=== PATIENT | female | born 1950 | race Caucasian/White ===

== ENCOUNTER → 2021-04-03 | Outpatient (CLI) | payer MEDICARE ==
[~2021-04-03] MED LIST: ACET1TAB33 PO
--- NOTE | 2021-04-03 12:10 | KCIC ---
EXAM: DUAL ENERGY X-RAY ABSORPTIOMETRY (DEXA). HISTORY: Postmenopausal screening. FINDINGS: The lowest measured T-score is -1.9 in the left hip, based on a bone mineral density of 0.7 14 g/cm^2. Refer to the worksheets for full detail. No comparison examinations are available. IMPRESSION: 1. Low bone mass. Bone mineral density yields a T-score between -1.0 and -2.5. Fracture risk is incre ased. 2. FRAX report: Not calculated. METHODOLOGY: Dual energy x-ray absorptiometry was performed to measure bone mineral density. The foll owing analysis is based on the 2019 Official Positions of the International Society for Clinical Dens itometry: Measurements of the hips and the average of L1-L4 are preferred. When the spine and/or hip cannot be feasibly measured or interpreted, or in the setting of hyperparathyroidism, distal radial bone minera l density may be measured. The lumbar spine T-score is based on the average bone mineral density of L1-L4. In the setting of art ifact or anatomic abnormality, some lumbar levels may be excluded, and the remaining levels used for calculation. A single lumbar level is not used for diagnosis, and if only a single level is available for assessment, another anatomic site will be used to assign a diagnosis. The hip T-score is based on the bone mineral density measurement of the femoral neck or total proxima l femur of either side, whichever is lowest. Bilateral mean values are not used for diagnosis. The forearm T-score is derived from 33% of the distal radius of the nondominant forearm. Electronically signed by: Noemy Goodwin MD (04/03/2021 12:07 PM) [id number]
--- NOTE | 2021-04-14 10:33 | KCIC ---
Bilateral digital screening mammograms: Reason for examination: Routine screening. No previous examinations available for comparison. New baseline. Interpretation was made with the benefit of CAD. The skin and nipples show no abnormalities. No abnormal axillary lymph nodes are seen. The breast par enchyma is heterogeneously dense. (Breast density: Category C) There appears to be some nodular asymm etry present central 12:00 B position of the left breast. Further evaluation with coned compression v iews and ultrasound is recommended. There are no other dominant masses, suspicious calcifications or architectural distortion. Scattered benign-appearing calcifications are seen. Impression: Nodular asymmetry at the central 12:00 B position of the left breast. Recommend further evaluation wi th coned compression views and ultrasound. Your patient's mammogram demonstrates that she has dense breast tissue (breast density category C or D), which could hide abnormalities, and if she has other risk factors for breast cancer that have bee n identified, she might benefit from supplemental screening tests that may be suggested by you as her ordering physician. Dense breast tissue, in and of itself, is a relatively common condition. Therefo re, this information is not provided to cause undue concern, but rather to raise your awareness and t o promote discussion with your patient regarding the presence of other risk factors, in addition to d ense breast tissue. Your patient's mammography results will be sent to her. BI-RADS Category 0: Incomplete. Needs additional imaging evaluation. "Our facility is accredited by the [employer] Mammography Program." This patient's information has been entered into a reminder system for the patient to be notified wit h the results of her examination and a target date for the next mammogram. Electronically signed by: Heidi Marcial MD (04/14/2021 10:30 AM) [email or web address]
== END ==
LOC: KCIC MAMMO 10:49
PROVIDERS: ATTEND Family Medicine
DX: N95.8 Other specified menopausal and perimenopausal disorders (principal); Z12.31 Encounter for screening mammogram for malignant neoplasm of breast; N63.42 Unspecified lump in left breast, subareolar
CPT/HCPCS: 77067; 77080

== ENCOUNTER 2021-04-04 12:45 | Emergency (ER) | payer MEDICARE ==
[~2021-04-04] VITALS: Ht 152.4 cm; Wt 59.3 kg
--- NOTE | 2021-04-04 14:27 | ED.ADGEN ---
General Adult EDM: Chief Complaint: FATIGUE HPI: HPI: Patient is a 70 year old female coming in for multiple complaints. Patient states that she is having increasing pain and swelling in her left leg is making it difficult to get around. She states that she was diagnosed with a DVT by her primary care and told to use warm compresses and massage. Was not placed on any blood thinners. Patient denies any history of DVT. She states that more recently she has been feeling fatigued. Patient states that when she walks around for 10 minutes she feels like she needs to go take a nap for an hour or 2. Patient states she has no past medical history and does not take any medications. Denies any injury to her left leg. She states the pain started as a "charley horse" and now has swelling around her knee. Review of Systems: Review of Systems: All other systems within normal limits except for as noted in the HPI Current Medications: Current Medications Medications (Trade) Dose Ordered Sig/Morenita Start Time Stop Time Status Last Admin Dose Admin Iohexol (Omnipaque 350 Mg/ml) 80 ml 1X ONCE 04/04/21 15:30 04/04/21 15:39 DC 04/04/21 15:55 80 ML Allergies: Allergies: Allergies Coded Allergies Type Severity Reaction Last Updated Verified Pierce And Derivatives Allergy Intermediate UNKNOWN 04/04/21 Yes amoxicillin Allergy Intermediate UNKNOWN 04/04/21 Yes aspirin Allergy Intermediate UNKNOWN 04/04/21 Yes cauliflower Allergy Intermediate UNKNOWN 04/04/21 Yes ibuprofen Allergy Intermediate UNKNOWN 04/04/21 Yes Physical Exam: PE: Constitutional: Well developed, well nourished, no acute distress, non-toxic appearance. [] HENT: Normocephalic, atraumatic, bilateral external ears normal, nose normal. [] Eyes: PERRLA, conjunctiva normal, no discharge. [] Neck: No rigidity, supple, no stridor. [] Cardiovascular: Regular rate and rhythm, brisk cap refill [] Lungs & Thorax: Non labored symmetric respirations, no tachypnea or respiratory distress [] Abdomen: Soft, nondistended. Skin: Warm, dry, no erythema, no rash. [] Back: Unremarkable Extremities: No deformities, range of motion grossly intact, no lower extremity edema. Swelling around left knee [] Neurologic: Alert and oriented X 3, no focal deficits noted. [] Psychologic: Affect normal, judgement normal, mood normal. [] Current Patient Data: Labs: Laboratory Tests Test 04/04/21 14:36 04/04/21 15:00 04/04/21 15:08 White Blood Count 9.0 x10^3/uL (4.0-11.0) Red Blood Count 4.34 x10^6/uL (3.50-5.40) Hemoglobin 11.4 g/dL (12.0-15.5) L Hematocrit 34.1 % (36.0-47.0) L Mean Corpuscular Volume 79 fL (79-100) Mean Corpuscular Hemoglobin 26 pg (25-35) Mean Corpuscular Hemoglobin Concent 34 g/dL (31-37) Red Cell Distribution Width 14.3 % (11.5-14.5) Platelet Count 449 x10^3/uL (140-400) H Neutrophils (%) (Auto) 68 % (31-73) Lymphocytes (%) (Auto) 22 % (24-48) L Monocytes (%) (Auto) 7 % (0-9) Eosinophils (%) (Auto) 2 % (0-3) Basophils (%) (Auto) 1 % (0-3) Neutrophils # (Auto) 6.2 x10^3/uL (1.8-7.7) Lymphocytes # (Auto) 2.0 x10^3/uL (1.0-4.8) Monocytes # (Auto) 0.7 x10^3/uL (0.0-1.1) Eosinophils # (Auto) 0.1 x10^3/uL (0.0-0.7) Basophils # (Auto) 0.1 x10^3/uL (0.0-0.2) Sodium Level 137 mmol/L (136-145) Potassium Level 4.1 mmol/L (3.5-5.1) Chloride Level 100 mmol/L (98-107) Carbon Dioxide Level 25 mmol/L (21-32) Anion Gap 12 (6-14) Blood Urea Nitrogen 15 mg/dL (7-20) Creatinine 0.9 mg/dL (0.6-1.0) Estimated GFR (Cockcroft-Gault) 61.7 BUN/Creatinine Ratio 17 (6-20) Glucose Level 105 mg/dL (70-99) H Calcium Level 8.9 mg/dL (8.5-10.1) Magnesium Level 2.4 mg/dL (1.8-2.4) Total Bilirubin 0.4 mg/dL (0.2-1.0) Aspartate Amino Transferase (AST) 10 U/L (15-37) L Alanine Aminotransferase (ALT) 14 U/L (14-59) Alkaline Phosphatase 83 U/L (46-116) Troponin I Quantitative < 0.017 ng/mL (0.000-0.055) SR-Jkn-L-Type Natriuretic Peptide 169 pg/mL (0-124) H Total Protein 6.8 g/dL (6.4-8.2) Albumin 2.7 g/dL (3.4-5.0) L Albumin/Globulin Ratio 0.7 (1.0-1.7) L Thyroid Stimulating Hormone (TSH) 3.482 uIU/mL (0.358-3.74) Urine Collection Type Unknown Urine Color Yellow Urine Clarity Clear Urine pH 6.5 (<5.0-8.0) Urine Specific [place] <=1.005 (1.000-1.030) Urine Protein Negative mg/dL (NEG-TRACE) Urine Glucose (UA) Negative mg/dL (NEG) Urine Ketones (Stick) Negative mg/dL (NEG) Urine Blood Moderate (NEG) Urine Nitrite Negative (NEG) Urine Bilirubin Negative (NEG) Urine Urobilinogen Dipstick 0.2 mg/dL (0.2 mg/dL) Urine Leukocyte Esterase Negative (NEG) Urine RBC 3-5 /HPF (0-2) Urine WBC Occ /HPF (0-4) Urine Squamous Epithelial Cells Few /LPF Urine Bacteria 0 /HPF (0-FEW) Prothrombin Time 14.6 SEC (11.7-14.0) H Prothrombin Time INR 1.1 (0.8-1.1) D-Dimer (Phoebe) 6.51 ug/mlFEU (0.00-0.50) H Laboratory Tests 04/04/21 14:36 Laboratory Tests 04/04/21 14:36 Vital Signs: Vital Signs Date Time Temp Pulse Resp B/P (MAP) Pulse Ox O2 Delivery O2 Flow Rate FiO2 04/04/21 14:10 98.1 94 17 151/69 (96) 99 Room Air 98.1 EKG: EKG: Sinus rhythm, heart rate 70 beats minute, normal axis, no ST elevation depression, no ectopy. [] Heart Score: C/O Chest Pain: No HEART Score for Chest Pain: HEART Score for Chest Pain Response (Comments) Value History Slighlty/Non-Suspicious 0 ECG Normal 0 Age > 65 2 Risk Factors No Risk Factors 0 Troponin < Normal Limit 0 Total 2 Risk Factors: Risk Factors: DM, Current or recent (<one month) smoker, HTN, HLP, family history of CAD, obesity. Risk Scores: Score 0 - 3: 2.5% MACE over next 6 weeks - Discharge Home Score 4 - 6: 20.3% MACE over next 6 weeks - Admit for Clinical Observation Score 7 - 10: 72.7% MACE over next 6 weeks - Early Invasive Strategies Radiology/Procedures: Radiology/Procedures: [address] [address] IMAGING REPORT Signed PATIENT: DORON FELIX ACCOUNT: [id number] : 1950 LOCATION: ER AGE: 70 SEX: F EXAM STATUS: REG ER ORD. PHYSICIAN: TATI KURTZ MD REASON: Pain and swelling TECH NOTIFY PROCEDURE: VENOUS LOWER EXTREMITY LEFT EXAMINATION: US DPLX VENOUS EXTREMITY LOWER LT, 04/04/2021 3:09 PM CLINICAL INDICATION: Pain and swelling left leg COMPARISON: None Available. PROCEDURE: Multiple grayscale, color Doppler and spectral Doppler sonographic images of The left lower extremity were obtained. FINDINGS: There is no evidence of deep venous thrombosis in the left lower extremity. The left common femoral, femoral and popliteal veins are echolucent with normal flow on color Doppler imaging. The veins are fully compressible and show normal phasicity and reaction to augmentation. Visualized calf veins are also normal in appearance. IMPRESSION: No evidence of deep venous thrombosis in the left lower extremity. Electronically signed by: Tati Santos MD (04/04/2021 3:55 PM) [id number] DICTATED and SIGNED BY: TATI SANTOS MD DATE: 04/04/21 [id number] [][address] [address] IMAGING REPORT Signed PATIENT: DORON FELIX ACCOUNT: [id number] : 1950 LOCATION: ER AGE: 70 SEX: F EXAM STATUS: REG ER ORD. PHYSICIAN: TATI KURTZ MD REASON: pe, dyspnea, h/o dvt PROCEDURE: CT ANGIOGRAPHY CHEST CTA chest with contrast dated 04/04/2021. No comparison available. Clinical data indication: Dyspnea. TECHNIQUE: Per contiguous axial imaging the chest performed following the intravenous administration of 80 cc Omnipaque 350. One or more of the following individualized dose reduction techniques were utilized for this examination: 1. Automated exposure control 2. Adjustment of the mA and/or kV according to patient size 3. Use of iterative reconstruction technique FINDINGS: Contrast bolus is adequate. No evidence of central, lobar or segmental pulmonary embolus. Subsegmental branches are not well evaluated based on technique. Heart size within normal limits. No pericardial effusion. No mediastinal, hilar or axillary lymphadenopathy. There are borderline enlarged right axillary lymph nodes. Thyroid gland is unremarkable. Suggestion of mild wall thickening of the distal thoracic esophagus. Central airways are patent. Lungs are clear. No consolidation or pleural effusion. No pneumothorax. Images of the upper abdomen are unremarkable. No acute bony abnormality. IMPRESSION: 1. No evidence of central, lobar or segmental pulmonary embolus. 2. Clear lungs. 3. Mild wall thickening of the distal thoracic esophagus, nonspecific. Consider acute or chronic esophagitis. 4. Borderline enlarged right axillary lymph nodes, also nonspecific. Correlate clinically. Electronically signed by: Tirso Hicks MD (04/04/2021 4:08 PM) [id number] DICTATED and SIGNED BY: TIRSO HICKS MD DATE: 04/04/21 [id number] [facility] [address] [place] [address] IMAGING REPORT Signed PATIENT: DORON FELIX ACCOUNT: [id number] : 1950 LOCATION: ER AGE: 70 SEX: F EXAM STATUS: REG ER ORD. PHYSICIAN: TATI KURTZ MD REASON: pain, swelling PROCEDURE: KNEE LEFT 3V Three-view left knee dated 04/04/2021. No comparison available. CLINICAL INDICATION: Pain. FINDINGS: 3 views left knee show normal bony alignment. No displaced fracture. No periostitis or bone destruction. No acute osseous or articular abnormality. Mild tricompartmental hypertrophic change. Moderate size joint effusion. No definite loose body. IMPRESSION: 1. No acute bony abnormality. 2. Moderate tricompartmental DJD. 3. Moderate size joint effusion. If there is clinical concern for internal derangement, MRI would better evaluate. Electronically signed by: Tirso Hicks MD (04/04/2021 4:26 PM) [id number] DICTATED and SIGNED BY: TIRSO HICKS MD DATE: 04/04/21 [id number] Course & Med Decision Making: Course & Med Decision Making Pertinent Labs and Imaging studies reviewed. (See chart for details) Work-up unremarkable. No distinct etiology for elevated dimer. Discussed the findings of degenerative disease and knee effusion, discussed treatment plans and follow-up with orthopedics. [] Dragon Disclaimer: Dragon Disclaimer: This electronic medical record was generated, in whole or in part, using a voice recognition dictation system. Departure Departure Impression: Primary Impression: Degenerative joint disease of left knee Disposition: HOME / SELF CARE / HOMELESS Condition: STABLE Referrals: TRANG BURTON (PCP) TIRSO MASSEY DO Patient Instructions: Knee Wraps (Elastic Bandage) and RICE Scripts Acetaminophen With Codeine (ACETAMINOPHEN-COD #3 TABLET) 1 Each Tablet 1 TAB PO PRN Q6HRS PRN for PAIN for 3 Days, #10 TAB Prov: TATI KURTZ MD 04/04/21 TATI KURTZ MD Apr 04, 2021 14:27
[2021-04-04 14:46] LABS: BASO # 0.1 x10^3/uL (0.0-0.2); BASO % 1 % (0-3); EOS # 0.1 x10^3/uL (0.0-0.7); EOS % 2 % (0-3); HEMATOCRIT 34.1 % (36.0-47.0); HEMOGLOBIN 11.4 g/dL (12.0-15.5); LYMPH % 22 % (24-48); MEAN CORPUSCULAR HEMOGLOBIN 26 pg (25-35); MEAN CORPUSCULAR HGB CONC 34 g/dL (31-37); MEAN CORPUSCULAR VOLUME 79 fL (79-100); MONO # 0.7 x10^3/uL (0.0-1.1); MONO % 7 % (0-9); NEUT # 6.2 x10^3/uL (1.8-7.7); NEUT % 68 % (31-73); PLATELET COUNT 449 x10^3/uL (140-400); RED BLOOD COUNT 4.34 x10^6/uL (3.50-5.40); RED CELL DISTRIBUTION WIDTH 14.3 % (11.5-14.5)
--- NOTE | 2021-04-04 14:52 | EKG ---
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
[2021-04-04 14:58] LABS: CALCIUM 8.9 mg/dL (8.5-10.1); CREATININE 0.9 mg/dL (0.6-1.0); GFR 61.7; POTASSIUM 4.1 mmol/L (3.5-5.1)
[2021-04-04 15:04] LABS: ALBUMIN 2.7 g/dL (3.4-5.0); ALBUMIN/GLOBULIN RATIO 0.7 (1.0-1.7); MAGNESIUM 2.4 mg/dL (1.8-2.4); TOTAL BILIRUBIN 0.4 mg/dL (0.2-1.0); TOTAL PROTEIN 6.8 g/dL (6.4-8.2)
[2021-04-04 15:25] LABS: BILIRUBIN,URINE NEGATIVE (NEG); COLOR,URINE YELLOW; NITRITE,URINE NEGATIVE (NEG); PH,URINE 6.5 (<5.0-8.0); PROTEIN,URINE NEGATIVE (NEG-TRACE); UROBILINOGEN,URINE 0.2 mg/dL (0.2 mg/dL)
[2021-04-04 15:28] LABS: PROTHROMBIN TIME PATIENT 14.6 SEC (11.7-14.0)
[2021-04-04] MEDS ORDERED: IOHEXOL 350 MG/ML 100 ML VIAL. IV ONE (15:30)
[2021-04-04 15:32] LABS: CLARITY,URINE CLEAR
[2021-04-04 15:33] LABS: BACTERIA,URINE 0 /HPF (0-FEW); WBC,URINE OCC /HPF (0-4)
[2021-04-04 15:49] LABS: D-DIMER 6.51 ug/mlFEU (0.00-0.50)
--- NOTE | 2021-04-04 15:57 | RAD ---
EXAMINATION: US DPLX VENOUS EXTREMITY LOWER LT, 04/04/2021 3:09 PM CLINICAL INDICATION: Pain and swelling left leg COMPARISON: None Available. PROCEDURE: Multiple grayscale, color Doppler and spectral Doppler sonographic images of The left lowe r extremity were obtained. FINDINGS: There is no evidence of deep venous thrombosis in the left lower extremity. The left common femoral, femoral and popliteal veins are echolucent with normal flow on color Doppler imaging. The v eins are fully compressible and show normal phasicity and reaction to augmentation. Visualized calf v eins are also normal in appearance. IMPRESSION: No evidence of deep venous thrombosis in the left lower extremity. Electronically signed by: Tati Santos MD (04/04/2021 3:55 PM) [id number]
--- NOTE | 2021-04-04 16:11 | RAD ---
CTA chest with contrast dated 04/04/2021. No comparison available. Clinical data indication: Dyspnea. TECHNIQUE: Per contiguous axial imaging the chest performed following the intravenous administration of 80 cc Omnipaque 350. One or more of the following individualized dose reduction techniques were utilized for this examinat ion: 1. Automated exposure control 2. Adjustment of the mA and/or kV according to patient size 3. Use of iterative reconstruction technique FINDINGS: Contrast bolus is adequate. No evidence of central, lobar or segmental pulmonary embolus. Subsegmenta l branches are not well evaluated based on technique. Heart size within normal limits. No pericardial effusion. No mediastinal, hilar or axillary lymphaden opathy. There are borderline enlarged right axillary lymph nodes. Thyroid gland is unremarkable. Sugg estion of mild wall thickening of the distal thoracic esophagus. Central airways are patent. Lungs are clear. No consolidation or pleural effusion. No pneumothorax. Images of the upper abdomen are unremarkable. No acute bony abnormality. IMPRESSION: 1. No evidence of central, lobar or segmental pulmonary embolus. 2. Clear lungs. 3. Mild wall thickening of the distal thoracic esophagus, nonspecific. Consider acute or chronic esop hagitis. 4. Borderline enlarged right axillary lymph nodes, also nonspecific. Correlate clinically. Electronically signed by: Tirso Hicks MD (04/04/2021 4:08 PM) [id number]
--- NOTE | 2021-04-04 16:29 | RAD ---
Three-view left knee dated 04/04/2021. No comparison available. CLINICAL INDICATION: Pain. FINDINGS: 3 views left knee show normal bony alignment. No displaced fracture. No periostitis or bone destructi on. No acute osseous or articular abnormality. Mild tricompartmental hypertrophic change. Moderate si ze joint effusion. No definite loose body. IMPRESSION: 1. No acute bony abnormality. 2. Moderate tricompartmental DJD. 3. Moderate size joint effusion. If there is clinical concern for internal derangement, MRI would bet ter evaluate. Electronically signed by: Tirso Hicks MD (04/04/2021 4:26 PM) [id number]
[2021-04-04] MEDS ORDERED: ACET1TAB33 PO (17:03)
[2021-04-04 17:33] VITALS: BP 119/56
== END 2021-04-04 18:00 | disposition home or self-care (01) ==
LOC: ER 12:45
DX: M17.12 Unilateral primary osteoarthritis, left knee (principal); R06.00 Dyspnea, unspecified; Z88.1 Allergy status to other antibiotic agents; Z88.6 Allergy status to analgesic agent; Z88.8 Allergy status to other drugs, medicaments and biological substances
CPT/HCPCS: 36415; 71275; 73562; 80053; 81001; 83735; 83880; 84443; 84484; 85025; 85379; 85610; 93005; 93971; 99285; Q9967

== ENCOUNTER → 2021-04-29 | Outpatient (CLI) | payer MEDICARE ==
[2021-04-04 17:33] VITALS: BP 119/56
--- NOTE | 2021-04-29 09:51 | KCIC ---
EXAM: Left breast diagnostic mammogram; left breast sonogram. HISTORY: 70-year-old female presents for evaluation of asymmetry within the left breast demonstrated on a screening mammogram dated 04/03/2021. TECHNIQUE: Full-field digital true lateral and spot compression craniocaudal and mediolateral oblique views of the left breast are obtained. Sonographic imaging of the left breast targeted to the site o f mammographic asymmetry was also performed. COMPARISON: 04/03/2021 BREAST PARENCHYMAL DENSITY: Level C - Heterogeneously dense. FINDINGS: There is no persistent finding of concern within the left breast with additional mammograph ic views. No convincing mass, architectural distortion or suspicious calcification is seen. Sonographic imaging of the left breast in the states mildly ectatic ducts within the subareolar locat ion. No intraductal lesion is seen. No breast mass or suspicious shadowing or architectural distortio n is seen. There are benign axillary lymph nodes. IMPRESSION: 1. No persistent suspicious mammographic or sonographic finding within the left breast. 2. BI-RADS Category 2: Benign finding(s). RECOMMENDATION: Annual mammography is recommended. If your mammogram demonstrates that you have dense breast tissue, which could hide abnormalities, and if you have other risk factors for breast cancer that have been identified, you might benefit from s upplemental screening tests that may be suggested by your ordering physician. Dense breast tissue, i n and of itself, is a relatively common condition. This information is not provided to cause undue c oncern, but rather to raise your awareness and to promote discussion with your physician regarding th e presence of other risk factors, in addition to dense breast tissue. A report of your mammography re sults will be sent to you and your physician. You should contact your physician if you have any ques tions or concerns regarding this report. Mammography is a sensitive method for finding small breast cancers, but it does not detect them all a nd is not a substitute for careful clinical examination. A negative mammogram does not negate a clin ically suspicious finding and should not result in delay in biopsying a clinically suspicious abnorma lity. PQRS compliance statement - Patient information was entered into a reminder system with a target due date for the next mammogram. "Our facility is accredited by the [employer] Mammography [employer]." Electronically signed by: Noemy Goodwin MD (04/29/2021 9:48 AM) [facility]
== END ==
LOC: KCIC MAMMO 08:42
PROVIDERS: ATTEND Family Medicine
DX: R92.2 Inconclusive mammogram (principal)
CPT/HCPCS: 76641; 77065

== ENCOUNTER 2021-06-24 15:16 | Inpatient (IN) | payer MEDICARE ==
[~2021-06-24] VITALS: Ht 152.4 cm; Wt 54.0 kg
--- NOTE | 2021-06-24 16:46 | EKG ---
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
--- NOTE | 2021-06-24 16:47 | EKG ---
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
--- NOTE | 2021-06-24 16:49 | RAD ---
XR CHEST 1V CLINICAL INDICATIONS: Reason: weakness / Spl. Instructions: / History: COMPARISON: No previous chest x-ray available. Findings: No acute lung infiltrate or pleural effusion or pulmonary edema or lung mass or pneumothora x is seen. The heart size, pulmonary vasculature, mediastinum and both noemi are unremarkable. Old no nunited fracture of the proximal left humerus is evident. IMPRESSION: No acute radiographic abnormality is seen. Electronically signed by: Darian Covarrubias MD (06/24/2021 4:46 PM) [id number]
[2021-06-24 16:59] LABS: BASO # 0.1 x10^3/uL (0.0-0.2); BASO % 1 % (0-3); EOS # 0.1 x10^3/uL (0.0-0.7); EOS % 2 % (0-3); HEMATOCRIT 27.5 % (36.0-47.0); HEMOGLOBIN 8.6 g/dL (12.0-15.5); LYMPH # 1.5 x10^3/uL (1.0-4.8); LYMPH % 21 % (24-48); MEAN CORPUSCULAR HEMOGLOBIN 22 pg (25-35); MEAN CORPUSCULAR HGB CONC 31 g/dL (31-37); MEAN CORPUSCULAR VOLUME 71 fL (79-100); MONO # 0.5 x10^3/uL (0.0-1.1); MONO % 7 % (0-9); NEUT % 69 % (31-73); PLATELET COUNT 472 x10^3/uL (140-400); RED BLOOD COUNT 3.85 x10^6/uL (3.50-5.40); RED CELL DISTRIBUTION WIDTH 17.1 % (11.5-14.5); WHITE BLOOD COUNT 7.3 x10^3/uL (4.0-11.0)
[2021-06-24 17:18] LABS: CALCIUM 8.6 mg/dL (8.5-10.1); CREATININE 0.8 mg/dL (0.6-1.0); GFR 70.7
[2021-06-24 17:27] LABS: ALBUMIN 2.2 g/dL (3.4-5.0); ALBUMIN/GLOBULIN RATIO 0.5 (1.0-1.7); MAGNESIUM 2.2 mg/dL (1.8-2.4); PLT ESTIMATE INCREASED (ADEQUATE); TOTAL BILIRUBIN 0.3 mg/dL (0.2-1.0); TOTAL PROTEIN 6.9 g/dL (6.4-8.2)
[2021-06-24 17:29] LABS: ANISOCYTOSIS SLIGHT; HYPOCHROMIA MOD; MICROCYTOSIS MOD; POIKILOCYTOSIS SLIGHT; POLYCHROMASIA PRESENT
[2021-06-24 17:30] LABS: OVALOCYTES FEW
[2021-06-24] MEDS ORDERED: CONTRAST GIVEN. MC PRN (17:30)
[2021-06-24] MEDS ORDERED: IOHEXOL 300 MG/ML 100ML VIAL. IV ONE (17:30)
--- NOTE | 2021-06-24 17:46 | RAD ---
EXAMINATION: CT head without IV contrast INDICATION:70 years, Female, weakness. COMPARISON: None TECHNIQUE: Spiral acquisition of contiguous images from the skull base to the vertex were obtained. S agittal and coronal 2D reformatted series were provided by the technologist. Soft tissue and bone win vinay algorithms were reviewed. Exposure: One or more of the following individualized dose reduction techniques were utilized for thi s examination: 1. Automated exposure control 2. Adjustment of the mA and/or kV according to patient size 3. Use of iterative reconstruction technique. FINDINGS: Neither mass, midline shift, intracranial hemorrhage, acute/subacute ischemic changes, nor extraaxial fluid collections are seen. Mild parenchymal volume loss. Supratentorial periventricular white matte r hypodensities, indeterminate but most likely representing chronic microangiopathic disease. The paranasal sinuses, mastoid air cells, and middle ears are clear. Orbital structures demonstrate n o evidence of acute process. IMPRESSION: 1. No evidence of acute intracranial abnormality. 2. Supratentorial periventricular white matter hypodensities, indeterminate but most likely represen ting chronic microangiopathic disease. Electronically signed by: Augustus Farah DO (06/24/2021 5:44 PM) [id number]
--- NOTE | 2021-06-24 18:13 | RAD ---
Exam: CT of abdomen and pelvis with contrast INDICATION: Abdominal pain TECHNIQUE: Sequential axial images through the abdomen and pelvis obtained following the administrati on of 75 mL of Omni 300 IV contrast. Sagittal and coronal reformatted images were reconstructed from the axial data and reviewed. Exposure: One or more of the following in the visualized dose reduction techniques were utilized for this examination: 1. Automated exposure control 2. Adjustment of the MA and/or KV according to patient size 3. Use of iterative of reconstructive technique Comparisons: None FINDINGS: Heart size is normal. No pericardial effusion. Strandy opacities at the dependent portion lungs likel y representing atelectasis. No pleural effusion. There are 2 hypoattenuating cystic lesions noted within the liver, largest at the lower right hepatic lobe measuring approximately 2.3 cm in diameter. These are incompletely characterized on single phas e exam however favored represent simple cysts. Vague area of hypoattenuation adjacent to the falcifor m ligament, favored represent focal steatosis. Spleen, pancreas, gallbladder and adrenals are unremarkable. No perinephric inflammation or hydronephrosis. No renal or ureteral calculi are identified. Bladder is partially distended and not well evaluated. Uterus is not enlarged. No abnormal adnexal ma ss. Moderate amount of stool is noted in the colon. Appendix is not definitively identified. Small bowel is unremarkable. No obstruction. No free intra-abdominal air or fluid. Abdominal aorta has a normal course and caliber. Abdominal vasculature is patent. There are several prominent/borderline sized retroperitoneal lymph nodes, largest is a left periaorti c node series 2 image 40 measuring 8 mm in short axis. There are numerous prominent and mildly enlarg ed right inguinal lymph nodes noted. No suspicious osseous lesions or acute fractures. IMPRESSION: 1. No acute processes identified within the abdomen or pelvis. 2. Several borderline sized retroperitoneal lymph nodes as well as mildly enlarged right inguinal ly mph nodes. These are nonspecific in etiology. Recommend clinical correlation. 3. Cystic lesion at the liver favored represent simple cysts however incompletely characterized on s samantha phase exam. Further evaluation with nonemergent/outpatient liver protocol CT or MRI is recommen ded. Electronically signed by: Dino Myers MD (06/24/2021 6:11 PM) [facility]
[2021-06-24] MEDS ORDERED: POTASSIUM CHLORIDE 20 MEQ TABLET.ER. PO ONE (18:15)
[2021-06-24 18:30] LABS: BILIRUBIN,URINE NEGATIVE (NEG); CLARITY,URINE CLEAR; COLOR,URINE YELLOW; NITRITE,URINE NEGATIVE (NEG); PROTEIN,URINE NEGATIVE (NEG-TRACE)
[2021-06-24 18:37] LABS: BACTERIA,URINE FEW /HPF (0-FEW)
[2021-06-24 18:43] LABS: AMPHETAMINE/METHAMPHETAMINE NEG (NEG); BARBITURATES NEG (NEG); BENZODIAZEPINES NEG (NEG); CANNABINOIDS NEG (NEG); COCAINE NEG (NEG); METHADONE NEG (NEG); OPIATES NEG (NEG); PHENCYCLIDINE NEG (NEG)
[2021-06-24] MEDS ORDERED: CALCIUM CARBONATE 500 MG TAB.CHEW PO PRN (18:45)
[2021-06-24] MEDS ORDERED: oxyCODONE/APAP 5/325 1 TAB TABLET PO PRN (18:45)
[2021-06-24] MEDS ORDERED: ELECTROLYTE (NON-ICU) PROTOCOL. MC PRN (18:45)
[2021-06-24] MEDS ORDERED: ACETAMINOPHEN 325 MG TABLET. PO PRN (18:45)
--- NOTE | 2021-06-24 18:45 | PDOC1 ---
History and Physical Date of Service: DOS: DATE: 06/24/21 TIME: 18:45 Chief Complaint: Problems: (1) Weakness (2) FTT (failure to thrive) in adult (3) Liver cyst Chief Complain: Weakness History of Present Illness: HPI: Patient is a 70-year-old female presented to the emergency room today due to 3- month history of weakness. Patient says that things started late January early March 2021. She noticed she was feeling weaker than usual as she had been previously walking at least a mile a day and started struggling to do that. She also noticed food was not tasting very good so she decreased appetite. Says she has lost about 20 to 25 pounds over the course of the summer. Went to her primary care physician who noticed on lab work she was anemic and was iron deficient. Is secondary to a GI doctor to evaluate for any bleeding. She had an EGD performed by a physician who she thinks is associated with or [facility] or somewhere in [place].? Either way she said they found gastritis along with gastric ulcers. Says she was placed on sucralfate after this. Does report she had been having some diarrhea prior to being placed on sucralfate and it has helps this. Says she was placed on iron as well by her primary care physician. Also saw a physical therapist 1 time who recommended she use a walker and says she has been walking "funny" ever since. Weakness and fatigue persisted she had an abdominal ultrasound that she says showed "problems with her gallbladder, liver and bile ducts." She is actually due to undergo cholecystectomy and I believe liver biopsy on Tuesday. She thinks the surgeon is associated with . She said that she presented today after discussing with her sister who is a nurse practitioner in [place] who recommended she come to the emergency room for weakness evaluation and rehab placement. Past Medical/Surgical History: PMH/PSH: Gastric ulcer Allergies: Allergies: Coded Allergies: Endwell And Derivatives (Verified Allergy, Intermediate, UNKNOWN, 04/04/21) amoxicillin (Verified Allergy, Intermediate, UNKNOWN, 04/04/21) aspirin (Verified Allergy, Intermediate, UNKNOWN, 04/04/21) cauliflower (Verified Allergy, Intermediate, UNKNOWN, 04/04/21) ibuprofen (Verified Allergy, Intermediate, UNKNOWN, 04/04/21) clavulanic acid (Verified Allergy, Unknown, 06/24/21) cortisone (Verified Allergy, Unknown, 06/24/21) prednisone (Verified Allergy, Unknown, 06/24/21) Family History: Family History: Noncontributory Social History: Social History: Denies alcohol tobacco or drug use Current Medications: Current Medications Current Medications Iohexol (Omnipaque 300 Mg/ml) 75 ml 1X ONCE IV Last administered on 06/24/21at 17:39; Start 06/24/21 at 17:30; Stop 06/24/21 at 17:31; Status DC Info (CONTRAST GIVEN -- Rx MONITORING) 1 each PRN DAILY PRN MC SEE COMMENTS; Start 06/24/21 at 17:30; Stop 06/26/21 at 17:29 Potassium Chloride (Klor-Con) 40 meq 1X ONCE PO ; Start 06/24/21 at 18:15; Stop 06/24/21 at 18:16; Status DC Active Scripts Active Acetaminophen-Cod #3 Tablet (Acetaminophen/Codeine Phosphate) 1 Each Tablet 1 Tab PO PRN Q6HRS PRN 3 Days ROS: Review of Systems Review of System Negative unless noted in HPI Physical Exam: Vital Signs: Vital Signs Date Time Temp Pulse Resp B/P (MAP) Pulse Ox O2 Delivery O2 Flow Rate FiO2 06/24/21 15:40 98.2 99 18 130/70 (90) 97 Room Air 98.2 Physcial Exam: GEN: No apparent distress. Alert and oriented HEENT: Normal cephalic, atraumatic, external auditory canals are patent EYES: Extraocular muscles are intact, pupil are equally round and reactive to light and accommodation MUSCULOSKELETAL: Well developed , well nourished, good range of motion ENDOCRINE: No thyromegaly was palpated LYMPHATICS: No cervical chain or axillary nodes were noted HEMATOPOIETIC: No bruising NECK: Supple, no JVD, no thyromegaly was noted LUNGS: Clear to auscultation in all lung buchanan without rhonchi or wheezing HEART: RRR, S!, S2 present. Peripheral pulses intact, no obvious murmurs noted ABDOMEN: Soft, nontender. Positive bowel sounds, no organomegaly, normal bowel sounds EXTREMITIES: Without clubbing, cyanosis, or edema. Pedal pulses intact. NEUROLOGIC: Normal speech and tone. A&O x 3, moves all extremities, no obvious focal deficits PSYCHIATRIC: Normal affect, normal mood. Stable anxious SKIN: No ulcerations or rashes, good skin turgor, no jaundice VASCULAR: Good capillary refill, neurovascular bundle appears to be intact Labs: Labs: Laboratory Tests Test 06/24/21 16:45 06/24/21 18:20 White Blood Count 7.3 x10^3/uL (4.0-11.0) Red Blood Count 3.85 x10^6/uL (3.50-5.40) Hemoglobin 8.6 g/dL (12.0-15.5) Hematocrit 27.5 % (36.0-47.0) Mean Corpuscular Volume 71 fL (79-100) Mean Corpuscular Hemoglobin 22 pg (25-35) Mean Corpuscular Hemoglobin Concent 31 g/dL (31-37) Red Cell Distribution Width 17.1 % (11.5-14.5) Platelet Count 472 x10^3/uL (140-400) Neutrophils (%) (Auto) 69 % (31-73) Lymphocytes (%) (Auto) 21 % (24-48) Monocytes (%) (Auto) 7 % (0-9) Eosinophils (%) (Auto) 2 % (0-3) Basophils (%) (Auto) 1 % (0-3) Neutrophils # (Auto) 5.0 x10^3/uL (1.8-7.7) Lymphocytes # (Auto) 1.5 x10^3/uL (1.0-4.8) Monocytes # (Auto) 0.5 x10^3/uL (0.0-1.1) Eosinophils # (Auto) 0.1 x10^3/uL (0.0-0.7) Basophils # (Auto) 0.1 x10^3/uL (0.0-0.2) Platelet Estimate Increased (ADEQUATE) Polychromasia Present Hypochromasia Mod Poikilocytosis Slight Basophilic Stippling Present Anisocytosis Slight Microcytosis Mod Ovalocytes Few Sodium Level 138 mmol/L (136-145) Potassium Level 3.0 mmol/L (3.5-5.1) Chloride Level 103 mmol/L (98-107) Carbon Dioxide Level 26 mmol/L (21-32) Anion Gap 9 (6-14) Blood Urea Nitrogen 21 mg/dL (7-20) Creatinine 0.8 mg/dL (0.6-1.0) Estimated GFR (Cockcroft-Gault) 70.7 BUN/Creatinine Ratio 26 (6-20) Glucose Level 93 mg/dL (70-99) Calcium Level 8.6 mg/dL (8.5-10.1) Magnesium Level 2.2 mg/dL (1.8-2.4) Total Bilirubin 0.3 mg/dL (0.2-1.0) Aspartate Amino Transf (AST/SGOT) 13 U/L (15-37) Alanine Aminotransferase (ALT/SGPT) 16 U/L (14-59) Alkaline Phosphatase 84 U/L (46-116) Troponin I Quantitative < 0.017 ng/mL (0.000-0.055) VH-Per-K-Type Natriuretic Peptide 424 pg/mL (0-124) Total Protein 6.9 g/dL (6.4-8.2) Albumin 2.2 g/dL (3.4-5.0) Albumin/Globulin Ratio 0.5 (1.0-1.7) Lipase 120 U/L (73-393) Thyroid Stimulating Hormone (TSH) 2.136 uIU/mL (0.358-3.74) Urine Collection Type Unknown Urine Color Yellow Urine Clarity Clear Urine pH 6.0 (<5.0-8.0) Urine Specific [place] >=1.030 (1.000-1.030) Urine Protein Negative mg/dL (NEG-TRACE) Urine Glucose (UA) Negative mg/dL (NEG) Urine Ketones (Stick) Negative mg/dL (NEG) Urine Blood Moderate (NEG) Urine Nitrite Negative (NEG) Urine Bilirubin Negative (NEG) Urine Urobilinogen Dipstick 1.0 mg/dL (0.2 mg/dL) Urine Leukocyte Esterase Negative (NEG) Urine RBC 11-20 /HPF (0-2) Urine WBC 5-10 /HPF (0-4) Urine Squamous Epithelial Cells Few /LPF Urine Bacteria Few /HPF (0-FEW) Urine Mucus Slight /LPF Urine Opiates Screen Neg (NEG) Urine Methadone Screen Neg (NEG) Urine Barbiturates Neg (NEG) Urine Phencyclidine Screen Neg (NEG) Urine Amphetamine/Methamphetamine Neg (NEG) Urine Benzodiazepines Screen Neg (NEG) Urine Cocaine Screen Neg (NEG) Urine Cannabinoids Screen Neg (NEG) Urine Ethyl Alcohol Neg (NEG) Laboratory Tests Test 06/24/21 16:45 06/24/21 18:20 White Blood Count 7.3 x10^3/uL (4.0-11.0) Red Blood Count 3.85 x10^6/uL (3.50-5.40) Hemoglobin 8.6 g/dL (12.0-15.5) Hematocrit 27.5 % (36.0-47.0) Mean Corpuscular Volume 71 fL (79-100) Mean Corpuscular Hemoglobin 22 pg (25-35) Mean Corpuscular Hemoglobin Concent 31 g/dL (31-37) Red Cell Distribution Width 17.1 % (11.5-14.5) Platelet Count 472 x10^3/uL (140-400) Neutrophils (%) (Auto) 69 % (31-73) Lymphocytes (%) (Auto) 21 % (24-48) Monocytes (%) (Auto) 7 % (0-9) Eosinophils (%) (Auto) 2 % (0-3) Basophils (%) (Auto) 1 % (0-3) Neutrophils # (Auto) 5.0 x10^3/uL (1.8-7.7) Lymphocytes # (Auto) 1.5 x10^3/uL (1.0-4.8) Monocytes # (Auto) 0.5 x10^3/uL (0.0-1.1) Eosinophils # (Auto) 0.1 x10^3/uL (0.0-0.7) Basophils # (Auto) 0.1 x10^3/uL (0.0-0.2) Platelet Estimate Increased (ADEQUATE) Polychromasia Present Hypochromasia Mod Poikilocytosis Slight Basophilic Stippling Present Anisocytosis Slight Microcytosis Mod Ovalocytes Few Sodium Level 138 mmol/L (136-145) Potassium Level 3.0 mmol/L (3.5-5.1) Chloride Level 103 mmol/L (98-107) Carbon Dioxide Level 26 mmol/L (21-32) Anion Gap 9 (6-14) Blood Urea Nitrogen 21 mg/dL (7-20) Creatinine 0.8 mg/dL (0.6-1.0) Estimated GFR (Cockcroft-Gault) 70.7 BUN/Creatinine Ratio 26 (6-20) Glucose Level 93 mg/dL (70-99) Calcium Level 8.6 mg/dL (8.5-10.1) Magnesium Level 2.2 mg/dL (1.8-2.4) Total Bilirubin 0.3 mg/dL (0.2-1.0) Aspartate Amino Transf (AST/SGOT) 13 U/L (15-37) Alanine Aminotransferase (ALT/SGPT) 16 U/L (14-59) Alkaline Phosphatase 84 U/L (46-116) Troponin I Quantitative < 0.017 ng/mL (0.000-0.055) XX-Rke-C-Type Natriuretic Peptide 424 pg/mL (0-124) Total Protein 6.9 g/dL (6.4-8.2) Albumin 2.2 g/dL (3.4-5.0) Albumin/Globulin Ratio 0.5 (1.0-1.7) Lipase 120 U/L (73-393) Thyroid Stimulating Hormone (TSH) 2.136 uIU/mL (0.358-3.74) Urine Collection Type Unknown Urine Color Yellow Urine Clarity Clear Urine pH 6.0 (<5.0-8.0) Urine Specific [place] >=1.030 (1.000-1.030) Urine Protein Negative mg/dL (NEG-TRACE) Urine Glucose (UA) Negative mg/dL (NEG) Urine Ketones (Stick) Negative mg/dL (NEG) Urine Blood Moderate (NEG) Urine Nitrite Negative (NEG) Urine Bilirubin Negative (NEG) Urine Urobilinogen Dipstick 1.0 mg/dL (0.2 mg/dL) Urine Leukocyte Esterase Negative (NEG) Urine RBC 11-20 /HPF (0-2) Urine WBC 5-10 /HPF (0-4) Urine Squamous Epithelial Cells Few /LPF Urine Bacteria Few /HPF (0-FEW) Urine Mucus Slight /LPF Urine Opiates Screen Neg (NEG) Urine Methadone Screen Neg (NEG) Urine Barbiturates Neg (NEG) Urine Phencyclidine Screen Neg (NEG) Urine Amphetamine/Methamphetamine Neg (NEG) Urine Benzodiazepines Screen Neg (NEG) Urine Cocaine Screen Neg (NEG) Urine Cannabinoids Screen Neg (NEG) Urine Ethyl Alcohol Neg (NEG) Assessment/Plan Assessment/Plan Iron deficiency anemia, weakness, failure to thrive, unintentional weight loss -3-month history of worsening weakness, decreased p.o. intake, fatigue -Evaluated by her primary care physician and a GI doctor who scoped her finding gastric ulcers she was placed on sucralfate after this -Continue sucralfate will also place on Protonix -Found to have iron deficiency anemia was placed on iron by her primary provider, hold off on this for now -20 to 25 pound unintentional weight loss. Nutrition consult for optimizing nutrition and weight gain -Uncertain what to make of this "planned" surgery on Tuesday. Will need to obtain records regarding this along with PCP and GI record -PT OT ordered -DVT prophylaxis -Regular diet -Suspect she can likely discharge if placement is recommended. Continue extensive weakness work-up with her regular providers Justifications for Admission Other Justification RAMILA ANDRADE MD Jun 24, 2021 18:45
--- NOTE | 2021-06-24 19:35 | PHYS DOC ---
Past Medical History Past Medical History: No Pertinent History, Arthritis Additional Past Medical Histor: gastritis, gastric ulcers (RAHUL GREEN KEG HEADER) Past Surgical History: Other Additional Past Surgical Histo: RECTAL PROLAPSE,HEMORRHOID,L SHOULDER (RAHUL GREEN KEG HEADER) Smoking Status: Never Smoker Alcohol Use: None (RAHUL GREEN KEG HEADER) General Adult EDM: Chief Complaint: WEAKNESS/GENERALIZED HPI: HPI: Patient is a 70 year old female with history of arthritis who presents to the ED today complaining of generalized weakness, and loss of appetite symptoms have been going on since March 2021. Patient states she has followed up with her own PCP multiple times as well as a GI doctor. She states she was told she needs to have her gallbladder removed and she also has cysts on her liver and pancreas. She states when they remove her gallbladder they are planning to do a scope to look at the cyst on the liver and pancreas. She also states the PCP was planning to do a CT of the abdomen and pelvis. Patient denies any abdominal pain, denies any nausea or vomiting. She states she had a Covid test done on Tuesday last week but she does not know the results yet. (RAHUL GREEN KEG HEADER) Review of Systems: Review of Systems: Constitutional: Reports generalized weakness and loss of appetite, denies fever or chills. [] Eyes: Denies change in visual acuity. [] HENT: Denies nasal congestion or sore throat. [] Respiratory: Denies cough or shortness of breath. [] Cardiovascular: Denies chest pain or edema. [] GI: Denies abdominal pain, nausea, vomiting, bloody stools or diarrhea. [] : Denies dysuria. [] Musculoskeletal: Denies back pain or joint pain. [] Integument: Denies rash. [] Neurologic: Denies headache, focal weakness or sensory changes. [] Psychiatric: Denies depression or anxiety. Appetite. (RAHUL GREEN KEG HEADER) Heart Score: C/O Chest Pain: N/A Risk Factors: Risk Factors: DM, Current or recent (<one month) smoker, HTN, HLP, family history of CAD, obesity. Risk Scores: Score 0 - 3: 2.5% MACE over next 6 weeks - Discharge Home Score 4 - 6: 20.3% MACE over next 6 weeks - Admit for Clinical Observation Score 7 - 10: 72.7% MACE over next 6 weeks - Early Invasive Strategies (RAHUL GREEN KEG HEADER) Current Medications: Current Medications Medications (Trade) Dose Ordered Sig/[place] Start Time Stop Time Status Last Admin Dose Admin Acetaminophen (Tylenol) 650 mg PRN Q6HRS PRN 06/24/21 18:45 Calcium Carbonate/ Glycine (Tums) 500 mg PRN Q3HRS PRN 06/24/21 18:45 Heparin Sodium (Porcine) (Heparin Sodium) 5,000 unit Q12HR 06/24/21 21:00 Info (CONTRAST GIVEN -- Rx MONITORING) 1 each PRN DAILY PRN 06/24/21 17:30 06/26/21 17:29 Info (Non-Icu Electrolyte Protocol) 1 ea PRN DAILY PRN 06/24/21 18:45 Iohexol (Omnipaque 300 Mg/ml) 75 ml 1X ONCE 06/24/21 17:30 06/24/21 17:31 DC 06/24/21 17:39 75 ML Ondansetron HCl (Zofran) 4 mg PRN Q6HRS PRN 06/24/21 18:45 Oxycodone/ Acetaminophen (Percocet 5/325) 2 tab PRN Q4HRS PRN 06/24/21 18:45 Potassium Chloride (Klor-Con) 40 meq 1X ONCE 06/24/21 18:15 06/24/21 18:16 DC Senna/Docusate Sodium (Senna Plus) 1 tab BID 06/24/21 21:00 (RAHUL GREEN KEG HEADER) Allergies: Allergies: Allergies Coded Allergies Type Severity Reaction Last Updated Verified [place] And Derivatives Allergy Intermediate UNKNOWN 04/04/21 Yes amoxicillin Allergy Intermediate UNKNOWN 04/04/21 Yes aspirin Allergy Intermediate UNKNOWN 04/04/21 Yes cauliflower Allergy Intermediate UNKNOWN 04/04/21 Yes ibuprofen Allergy Intermediate UNKNOWN 04/04/21 Yes clavulanic acid Allergy Unknown 06/24/21 Yes cortisone Allergy Unknown 06/24/21 Yes prednisone Allergy Unknown 06/24/21 Yes (RAHUL GREEN KEG HEADER) Physical Exam: PE: Constitutional: Well developed, well nourished, no acute distress, non-toxic appearance. [] HENT: Normocephalic, atraumatic, bilateral external ears normal, oropharynx moist, no oral exudates, nose normal. [] Eyes: PERRLA, EOMI, conjunctiva normal, no discharge. [] Neck: Normal range of motion, no tenderness, supple, no stridor. [] Cardiovascular:Heart rate regular rhythm, Lungs & Thorax: Bilateral breath sounds clear to auscultation [] Abdomen: Bowel sounds normal, soft, no tenderness, no masses, no pulsatile masses. [] Skin: Warm, dry, no erythema, no rash. [] Back: No tenderness, no CVA tenderness. [] Extremities: No tenderness, no cyanosis, no clubbing, ROM intact, no edema. [] Neurologic: Alert and oriented X 3, normal motor function, normal sensory function, no focal deficits noted. Cranial nerves II through XII intact Psychologic: Affect normal, judgement normal, mood normal. Very talkative patient (RAHUL GREEN APRN) Current Patient Data: Labs: Laboratory Tests Test 06/24/21 16:45 06/24/21 18:20 White Blood Count 7.3 x10^3/uL (4.0-11.0) Red Blood Count 3.85 x10^6/uL (3.50-5.40) Hemoglobin 8.6 g/dL (12.0-15.5) L Hematocrit 27.5 % (36.0-47.0) L Mean Corpuscular Volume 71 fL (79-100) L Mean Corpuscular Hemoglobin 22 pg (25-35) L Mean Corpuscular Hemoglobin Concent 31 g/dL (31-37) Red Cell Distribution Width 17.1 % (11.5-14.5) H Platelet Count 472 x10^3/uL (140-400) H Neutrophils (%) (Auto) 69 % (31-73) Lymphocytes (%) (Auto) 21 % (24-48) L Monocytes (%) (Auto) 7 % (0-9) Eosinophils (%) (Auto) 2 % (0-3) Basophils (%) (Auto) 1 % (0-3) Neutrophils # (Auto) 5.0 x10^3/uL (1.8-7.7) Lymphocytes # (Auto) 1.5 x10^3/uL (1.0-4.8) Monocytes # (Auto) 0.5 x10^3/uL (0.0-1.1) Eosinophils # (Auto) 0.1 x10^3/uL (0.0-0.7) Basophils # (Auto) 0.1 x10^3/uL (0.0-0.2) Platelet Estimate Increased (ADEQUATE) Polychromasia Present Hypochromasia Mod Poikilocytosis Slight Basophilic Stippling Present Anisocytosis Slight Microcytosis Mod Ovalocytes Few Sodium Level 138 mmol/L (136-145) Potassium Level 3.0 mmol/L (3.5-5.1) L Chloride Level 103 mmol/L (98-107) Carbon Dioxide Level 26 mmol/L (21-32) Anion Gap 9 (6-14) Blood Urea Nitrogen 21 mg/dL (7-20) H Creatinine 0.8 mg/dL (0.6-1.0) Estimated GFR (Cockcroft-Gault) 70.7 BUN/Creatinine Ratio 26 (6-20) H Glucose Level 93 mg/dL (70-99) Calcium Level 8.6 mg/dL (8.5-10.1) Magnesium Level 2.2 mg/dL (1.8-2.4) Total Bilirubin 0.3 mg/dL (0.2-1.0) Aspartate Amino Transferase (AST) 13 U/L (15-37) L Alanine Aminotransferase (ALT) 16 U/L (14-59) Alkaline Phosphatase 84 U/L (46-116) Troponin I Quantitative < 0.017 ng/mL (0.000-0.055) PX-Oba-B-Type Natriuretic Peptide 424 pg/mL (0-124) H Total Protein 6.9 g/dL (6.4-8.2) Albumin 2.2 g/dL (3.4-5.0) L Albumin/Globulin Ratio 0.5 (1.0-1.7) L Lipase 120 U/L (73-393) Thyroid Stimulating Hormone (TSH) 2.136 uIU/mL (0.358-3.74) Urine Collection Type Unknown Urine Color Yellow Urine Clarity Clear Urine pH 6.0 (<5.0-8.0) Urine Specific [place] >=1.030 (1.000-1.030) Urine Protein Negative mg/dL (NEG-TRACE) Urine Glucose (UA) Negative mg/dL (NEG) Urine Ketones (Stick) Negative mg/dL (NEG) Urine Blood Moderate (NEG) Urine Nitrite Negative (NEG) Urine Bilirubin Negative (NEG) Urine Urobilinogen Dipstick 1.0 mg/dL (0.2 mg/dL) Urine Leukocyte Esterase Negative (NEG) Urine RBC 11-20 /HPF (0-2) Urine WBC 5-10 /HPF (0-4) Urine Squamous Epithelial Cells Few /LPF Urine Bacteria Few /HPF (0-FEW) Urine Mucus Slight /LPF Urine Opiates Screen Neg (NEG) Urine Methadone Screen Neg (NEG) Urine Barbiturates Neg (NEG) Urine Phencyclidine Screen Neg (NEG) Urine Amphetamine/Methamphetamine Neg (NEG) Urine Benzodiazepines Screen Neg (NEG) Urine Cocaine Screen Neg (NEG) Urine Cannabinoids Screen Neg (NEG) Urine Ethyl Alcohol Neg (NEG) Laboratory Tests 06/24/21 16:45 Laboratory Tests 06/24/21 16:45 Vital Signs: Vital Signs Date Time Temp Pulse Resp B/P (MAP) Pulse Ox O2 Delivery O2 Flow Rate FiO2 06/24/21 15:40 98.2 99 18 130/70 (90) 97 Room Air 98.2 [facility] EKG: EK interpreted by Dr. Mariee sinus rhythm heart rate 88 no STEMI [] ([facility] GREEN [facility]) Radiology/Procedures: Radiology/Procedures: []PROCEDURE: CT HEAD WO CONTRAST EXAMINATION: CT head without IV contrast INDICATION:70 years, Female, weakness. COMPARISON: None TECHNIQUE: Spiral acquisition of contiguous images from the skull base to the vertex were obtained. Sagittal and coronal 2D reformatted series were provided by the technologist. Soft tissue and bone window algorithms were reviewed. Exposure: One or more of the following individualized dose reduction techniques were utilized for this examination: 1. Automated exposure control 2. Adjustment of the mA and/or kV according to patient size 3. Use of iterative reconstruction technique. FINDINGS: Neither mass, midline shift, intracranial hemorrhage, acute/subacute ischemic changes, nor extraaxial fluid collections are seen. Mild parenchymal volume loss. Supratentorial periventricular white matter hypodensities, indeterminate but most likely representing chronic microangiopathic disease. The paranasal sinuses, mastoid air cells, and middle ears are clear. Orbital structures demonstrate no evidence of acute process. IMPRESSION: 1. No evidence of acute intracranial abnormality. 2. Supratentorial periventricular white matter hypodensities, indeterminate but most likely representing chronic microangiopathic disease. Electronically signed by: Erin Farah DO (06/24/2021 5:44 PM) [id number] DICTATED and SIGNED BY: ERIN FARAH DO DATE: 06/24/21 [id number] PROCEDURE: PORTABLE CHEST 1V XR CHEST 1V CLINICAL INDICATIONS: Reason: weakness / Spl. Instructions: / History: COMPARISON: No previous chest x-ray available. Findings: No acute lung infiltrate or pleural effusion or pulmonary edema or lung mass or pneumothorax is seen. The heart size, pulmonary vasculature, mediastinum and both noemi are unremarkable. 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 IMPRESSION: No acute radiographic abnormality is seen. Electronically signed by: Kamron Covarrubias MD (06/24/2021 4:46 PM) [id number] DICTATED and SIGNED BY: KAMRON COVARRUBIAS MD DATE: 06/24/21 [id number] PROCEDURE: CT ABD PELV W/ IV CONTRST ONLY Exam: CT of abdomen and pelvis with contrast INDICATION: Abdominal pain TECHNIQUE: Sequential axial images through the abdomen and pelvis obtained following the administration of 75 mL of Omni 300 IV contrast. Sagittal and coronal reformatted images were reconstructed from the axial data and reviewed. Exposure: One or more of the following in the visualized dose reduction techniques were utilized for this examination: 1. Automated exposure control 2. Adjustment of the MA and/or KV according to patient size 3. Use of iterative of reconstructive technique Comparisons: None FINDINGS: Heart size is normal. No pericardial effusion. Strandy opacities at the dependent portion lungs likely representing atelectasis. No pleural effusion. There are 2 hypoattenuating cystic lesions noted within the liver, largest at the lower right hepatic lobe measuring approximately 2.3 cm in diameter. These are incompletely characterized on single phase exam however favored represent simple cysts. Vague area of hypoattenuation adjacent to the falciform ligament, favored represent focal steatosis. Spleen, pancreas, gallbladder and adrenals are unremarkable. No perinephric inflammation or hydronephrosis. No renal or ureteral calculi are identified. Bladder is partially distended and not well evaluated. Uterus is not enlarged. No abnormal adnexal mass. Moderate amount of stool is noted in the colon. Appendix is not definitively identified. Small bowel is unremarkable. No obstruction. No free intra-abdominal air or fluid. Abdominal aorta has a normal course and caliber. Abdominal vasculature is patent. There are several prominent/borderline sized retroperitoneal lymph nodes, largest is a left periaortic node series 2 image 40 measuring 8 mm in short axis. There are numerous prominent and mildly enlarged right inguinal lymph nodes noted. No suspicious osseous lesions or acute fractures. IMPRESSION: 1. No acute processes identified within the abdomen or pelvis. 2. Several borderline sized retroperitoneal lymph nodes as well as mildly enlarged right inguinal lymph nodes. These are nonspecific in etiology. Recommend clinical correlation. 3. Cystic lesion at the liver favored represent simple cysts however incompletely characterized on single phase exam. Further evaluation with nonemergent/outpatient liver protocol CT or MRI is recommended. Electronically signed by: Dino Mesa MD (06/24/2021 6:11 PM) [facility] DICTATED and SIGNED BY: DINO MESA MD DATE: 06/24/21 [id number] (RAHUL GREEN APRN) Course & Med Decision Making: Course & Med Decision Making Pertinent Labs and Imaging studies reviewed. (See chart for details) This is a 70-year-old female patient presented to the ED today complaining of generalized weakness with loss of appetite, symptoms of been going on since March 2021. Patient has been following up with her PCP as well as GI. She states she was diagnosed with cysts on her liver and pancreas. She states she supposed to have her gallbladder removed during the removal.we will do a scope to look at the liver and pancreas. She states the PCP also wanted her to have a CT of the abdomen and pelvis. She states since she is in the ED she would like that done. CBC with normal white count, hemoglobin 8.6 with hematocrit of 27.5, CMP with potassium of 3.0, patient was given oral potassium replacement. UA negative for infection. CT of the head is negative, chest x-ray is negative. CT of the abdomen and pelvis was negative for any acute findings, noted for enlarged nonspecific retroperitoneal lymph nodes. Also noted for cyst on the liver. Further evaluation with nonemergent CT liver protocol or MRI recommended. Results were communicated to patient. Patient states she lives by herself and is not willing to go home right now. She states she is does not feel safe at home because she is afraid she will fall because of her weakness. She would like to be placed in a facility. She states she tried finding placement throught the PCP but they told 1 unable to find a facility with an open bed. She states they requested her to find her own placement, she states she was unable to do it. Spoke with Dr. Momin who accepted patient for admission. (RAHUL GREEN APRN) Course & Med Decision Making Patients Care and treatment plan provided by ER Nurse Practitioner. I was available for consult. Patient's chart reviewed. (CHRISTINE ZABALA DO) Dragon Disclaimer: Dragon Disclaimer: This electronic medical record was generated, in whole or in part, using a voice recognition dictation system. (RAHUL GREEN APRN) Departure Departure Impression: Primary Impression: Generalized weakness Additional Impression: Liver cyst Disposition: ADMITTED INPATIENT Condition: STABLE Referrals: TRNAG BURTON (PCP) RAHUL GREEN APRN Jun 24, 2021 19:35 CHRISTINE ZABALA DO Jun 24, 2021 22:40
[2021-06-24] MEDS: SENNOSIDES/DOCUSATE 8.6/50MG TABLET. PO SCH ×2 (21:00→23:18)
[2021-06-24 22:00] VITALS: BP 128/64
[2021-06-24 23:00] VITALS: BP 115/66
[2021-06-24] MEDS: PANTOPRAZOLE 40 MG TABLET.DR. PO SCH (23:18)
[2021-06-24] MEDS: HEPARIN for SUB-Q USE 5,000 UNIT/ML VIAL. SQ SCH (23:31)
[2021-06-25] MEDS ORDERED: CALC500T30 PO (00:42)
[2021-06-25] MEDS ORDERED: FERR325T14 PO (00:42)
[2021-06-25] MEDS ORDERED: PANT40TA77 PO (00:42)
[2021-06-25] MEDS ORDERED: ACET325T9 PO (00:42)
[2021-06-25] MEDS ORDERED: MULT-246 PO (00:42)
[2021-06-25] MEDS ORDERED: OMEG1CAP50 PO (00:42)
[2021-06-25] MEDS ORDERED: SUCR1TAB35 PO (00:42)
[2021-06-25 03:00] VITALS: BP 111/60
[2021-06-25] MEDS: PANTOPRAZOLE 40 MG TABLET.DR. PO SCH (06:21)
[2021-06-25 07:00] VITALS: BP 117/66
[2021-06-25] MEDS ORDERED: FLU VACC QUAD 21-22 (6MOS+) PF 0.5 ML SYRINGE. VAX IM ONE (09:00)
[2021-06-25] MEDS ORDERED: SUCRALFATE 1 GM TABLET. PO SCH (09:00)
[2021-06-25] MEDS: SENNOSIDES/DOCUSATE 8.6/50MG TABLET. PO SCH ×2 (09:25→21:00)
[2021-06-25] MEDS: HEPARIN for SUB-Q USE 5,000 UNIT/ML VIAL. SQ SCH ×2 (09:26→21:02)
[2021-06-25 11:00] VITALS: BP 114/73
--- NOTE | 2021-06-25 11:52 | NUR ---
SW following. Discussed with RN, pt from home alone, room air, regular diet. COVID-19 negative. PT/OT ordered. SW will continue to follow.
--- NOTE | 2021-06-25 13:23 | HP ---
ADMIT DATE: 06/24/2021 CHIEF COMPLAINT: Weakness. HISTORY OF PRESENT ILLNESS: The patient is a pleasant 70-year-old female who presented to the ER with 3 months of weakness. It seems to get progressive when more she walks. She also complains of urinary dribbling all day long and then at night, she has a large urinary episode about every hour. 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 I discussed the case with ER physician. We are going to admit the patient and consult Neurology and I am going to start her on some bethanechol. ALLERGIES: AMOXICILLIN, ASPIRIN, CAULIFLOWER, CLAVULANIC ACID, CORTISONE, AND IBUPROFEN. FAMILY HISTORY: Diabetes. SOCIAL HISTORY: She does drink, smoke or take drugs. MEDICATIONS: Reviewed, please refer to the MRAD. REVIEW OF SYSTEMS: GENERAL: She complains of weakness. SKIN: No bruising, hair changes or rashes. EYES: No blurred, double or loss of vision. NOSE AND THROAT: No history of nosebleeds, hoarseness or sore throat. HEART: No history of palpitations, chest pain or shortness of breath on exertion. LUNGS: Denies cough, hemoptysis, wheezing or shortness of breath. GASTROINTESTINAL: Denies changes in appetite, nausea, vomiting, diarrhea or constipation. GENITOURINARY: She complains of urinary incontinence throughout the day. She dribbles all day long. NEUROLOGIC: She complains of weakness. PSYCHIATRIC: No history of panic, anxiety or depression. ENDOCRINE: No history of heat or cold intolerance, polyuria or polydipsia. EXTREMITIES: Denies muscle weakness, joint pain, pain on walking or stiffness. PHYSICAL EXAMINATION: VITALS: Within normal limits and are stable. GENERAL: She is very weak. HEENT: Normal cephalic atraumatic, external auditory canals are patent EYES: Extraocular muscles are intact, pupils are equally round and reactive to light and accommodation MUSCULOSKELETAL: Well developed, well nourished, good range of motion ENDOCRINE: No thyromegaly was palpated LYMPHATICS: No cervical chain or axillary nodes were noted HEMATOPOIETIC: No bruising NECK: Supple, no JVD, no thyromegaly was noted. LUNGS: Clear to auscultation in all lung buchanan without rhonchi or wheezing. HEART: RRR, S1, S2 present. Peripheral pulses intact, no obvious murmurs were noted. ABDOMEN: Soft, nontender. Positive bowel sounds no organomegaly, normal bowel sounds. EXTREMITIES: Without any cyanosis, clubbing, or edema. Pedal pulses intact, Homans sign is negative. NEUROLOGIC: She is very weak. PSYCHIATRIC: Normal affect, normal mood. Stable. SKIN: No ulcerations or rashes, good skin turgor, no jaundice. VASCULAR: Good capillary refill, neurovascular bundle appears to be intact. LABORATORY DATA: White count 7, hemoglobin 8.6, platelets 472. Electrolytes pending. CT of the head showed no evidence of acute disease. She does have some white matter changes secondary to microvascular disease. Chest x-ray negative. Abdominal CT, no acute processes. She does have some borderline retroperitoneal lymph nodes and right inguinal lymph nodes, nonspecific. ASSESSMENT AND PLAN: Progressive weakness and dystonic bladder. The patient will be admitted. I have started bethanechol. I spoke with the pharmacy on the dosing. Consult Neurology. Home meds. Deep venous thrombosis prophylaxis. Full code. Suspect she will need to go to group home and in fact she is requesting it. Long-term prognosis is guarded. SILAS/YVON DR: Moses TID: [id number]
[2021-06-25 15:03] VITALS: BP 104/55
[2021-06-25] MEDS ORDERED: ACETAMINOPHEN/CODEINE 300/30MG TABLET. PO PRN (16:15)
[2021-06-25] MEDS ORDERED: ACETAMINOPHEN 325 MG TABLET. PO PRN (16:15)
[2021-06-25] MEDS: FERROUS SULFATE 325 MG TABLET. PO SCH (17:59)
[2021-06-25] MEDS: SUCRALFATE 1 GM TABLET. PO SCH ×2 (17:59→21:01)
[2021-06-25] MEDS: BETHANECHOL CHLORIDE 10 MG TABLET. PO SCH (17:59)
[2021-06-25 19:00] VITALS: BP 97/55
[2021-06-25 23:29] VITALS: BP 104/58
[2021-06-26 03:14] VITALS: BP 112/62
[2021-06-26] MEDS: SUCRALFATE 1 GM TABLET. PO SCH ×4 (06:09→22:35)
[2021-06-26] MEDS: BETHANECHOL CHLORIDE 10 MG TABLET. PO SCH ×3 (06:10→18:23)
[2021-06-26] MEDS: PANTOPRAZOLE 40 MG TABLET.DR. PO SCH (06:10)
[2021-06-26 07:00] VITALS: BP 136/65
[2021-06-26] MEDS: FERROUS SULFATE 325 MG TABLET. PO SCH ×2 (09:55→18:20)
[2021-06-26] MEDS: OMEGA-3 FATTY ACIDS/FISH OIL 1,000 MG CAPSULE. PO SCH (09:55)
[2021-06-26] MEDS: MULTIVITAMIN with MINERAL TABLET. PO SCH (09:56)
[2021-06-26] MEDS: SENNOSIDES/DOCUSATE 8.6/50MG TABLET. PO SCH ×2 (09:56→22:35)
[2021-06-26] MEDS: CALCIUM CARBONATE 500 MG TABLET PO SCH (09:58)
[2021-06-26] MEDS ORDERED: LIDOCAINE 1% Multi-Dose 20 ML VIAL. INJ ONE (10:15)
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
--- NOTE | 2021-06-26 12:38 | RAD ---
EXAM: Brain MRI without contrast. HISTORY: Generalized weakness. Neck pain. TECHNIQUE: Multiplanar, multisequence magnetic resonance imaging of the brain was performed without c ontrast. COMPARISON: CT dated 06/24/2021. FINDINGS: There is no restricted diffusion to suggest acute or subacute infarction. There is no susce ptibility effect to suggest hemorrhage. There is no mass effect or midline shift. There is no hydroce phalus. There is mild age-appropriate cerebral volume loss. There are small focal areas of T2 such FL AIR hyperintensity within the left greater than right centrum semiovale. There is evidence of right l ens surgery. The paranasal sinuses are clear. There is minimal left mastoid fluid. There is no suspic ious calvarial lesion. There are normal flow voids within the cerebral vessels. IMPRESSION: 1. No acute intracranial finding. 2. Nonspecific foci of signal change within the left greater than right centrum semiovale. This is ty pically due to chronic small vessel disease in patients of this age. However, given the lesion config uration and configuration, the possibility of foci of chronic demyelination is not excluded. Electronically signed by: Noemy Goodwin MD (06/26/2021 12:36 PM) [facility]
--- NOTE | 2021-06-26 12:42 | RAD ---
EXAM: Cervical spine MRI without contrast. HISTORY: Neck pain. Weakness. TECHNIQUE: Multiplanar, multisequence magnetic resonance imaging of the cervical spine was performed without contrast. COMPARISON: None. FINDINGS: There is mild cervical kyphosis. There is 3 mm anterolisthesis of C4 on C5. There is endpla te remodeling primarily at the mid lower cervical levels. There is no suspicious osseous lesion. Ther e is no acute or subacute fracture. No spinal cord lesion is seen. At C2-C3, there is mild left facet arthropathy. There is no stenosis. At C3-C4, there is moderate bilateral facet arthropathy. There is no stenosis. At C4-C5, there is moderate right and mild left facet arthropathy. There is endplate remodeling. Ther e is mild right foraminal stenosis. At C5-C6, there is a disc bulge and endplate remodeling. There is mild lateral facet arthropathy. The re is uncovertebral arthropathy. There is mild left foraminal stenosis. At C5-C6, there is a disc bulge and endplate remodeling. There is mild left facet arthropathy. There is no stenosis. IMPRESSION: Multilevel degenerative change involving the cervical spine, described in detail above. T his is associated with mild right foraminal stenosis at C4-C5 and mild left foraminal stenosis at C5- C6. No spinal cord lesion is seen. Electronically signed by: Noemy Goodwin MD (06/26/2021 12:40 PM) [facility]
[2021-06-26 13:03] LABS: CSF PROTEIN 37.4 mg/dL (15.0-45.0)
[2021-06-26 13:09] LABS: CSF CLARITY CLEAR; CSF COLOR COLORLESS; CSF RBC COUNT 1625 /cmm (Not Established); CSF WBC COUNT 5 /cmm (Not Established)
--- NOTE | 2021-06-26 13:11 | NUR ---
[facility] following. Discussed with RN, pt from home alone, room air, regular diet. Wants to go to [facility] faxed referral - pt accepted at [facility] [place]. COVID-19 negative. Pt needing a spinal tap to check for Guillian Moapa. Will check back Tuesday to determine if facility should submit for insurance auth. [facility] will continue to follow.
--- NOTE | 2021-06-26 13:21 | PDOC ---
[employer] PROGRESS NOTE Date of Service DOS: DATE: 06/26/21 TIME: 13:12 Chief Complaint Chief Complaint Weakness FTT (failure to thrive) in adult Liver cyst Gastric ulcer History of Present Illness History of Present Illness 06/26/2021 Patient seen and examined. Chart reviewed. Discussed with RN. Patient came back from lumbar puncture procedure awake and alert. NAD. Patient is talkative. Patient is on room air. Patient complains of fatigue which progresses to weakness. Her feet would go numb at times. Patient has good levator palpebrae muscle control. Vitals/I&O Vitals/I&O: Vital Signs Date Time Temp Pulse Resp B/P (MAP) Pulse Ox O2 Delivery O2 Flow Rate FiO2 06/26/21 07:00 98.4 92 18 136/65 (88) 97 Room Air 98.4 I & O 06/25/21 06/25/21 06/26/21 15:00 23:00 07:00 Intake Total 120 ml 0 ml Output Total 350 ml 450 ml Balance -230 ml -450 ml Physical Exam General: Alert, Oriented X3, Cooperative, No acute distress Heart: Normal S1, Normal S2 Lungs: Clear Extremities: No edema, No tenderness/swelling Skin: No rashes, No significant lesion Labs Labs: Laboratory Tests Test 06/26/21 08:50 06/26/21 11:58 Erythrocyte Sedimentation Rate 56 (0-25) Creatine Kinase 28 U/L (26-192) CSF Color Colorless CSF Clarity Clear CSF WBC 5 /cmm (Not Established) CSF RBC 1625 /cmm (Not Established) CSF Glucose 64 mg/dL (37-70) CSF Total Protein 37.4 mg/dL (15.0-45.0) Review of Systems Review of Systems: Patient reports feeling fatigue and weak. Assessment and Plan Assessmemt and Plan Problems Medical Problems: (1) Generalized weakness Status: Acute (2) Liver cyst Status: Acute Weakness FTT (failure to thrive) in adult Liver cyst Gastric ulcer Plan: Await result from lumbar puncture Encourage PO intake Trend labs Home meds DVT prophylaxis Full Code Appreciate neurology input Comment Review of Relevant I have reviewed the following items genesis (where applicable) has been applied. Medications: Current Medications Medications (Trade) Dose Ordered Sig/Morenita Route PRN Reason Start Time Stop Time Status Last Admin Dose Admin Bethanechol Chloride (Urecholine) 10 mg TIDAC PO 06/25/21 16:30 06/26/21 06:10 Calcium Carbonate/ Glycine (Oscal) 1,000 mg DAILY PO 06/26/21 09:00 06/26/21 09:58 Ferrous Sulfate (Feosol) 325 mg BIDWMEALS PO 06/25/21 17:00 06/26/21 09:55 Fish Oil (Fish Oil) 1,000 mg DAILY PO 06/26/21 09:00 06/26/21 09:55 Pantoprazole Sodium (Protonix) 40 mg DAILYAC PO 06/26/21 07:30 06/26/21 06:10 Sucralfate (Carafate) 1 gm QIDACHS PO 06/25/21 16:30 06/26/21 06:09 Multivitamins (Thera M Plus) 1 tab DAILY PO 06/26/21 09:00 06/26/21 09:56 Lidocaine HCl (Lidocaine 1% 20ml Vial) 20 ml 1X ONCE INJ 06/26/21 10:15 06/26/21 10:16 DC 06/26/21 11:45 Justifications for Admission Other Justification NASRA BEE III DO Jun 26, 2021 13:21
[2021-06-26 13:33] LABS: PROTHROMBIN TIME PATIENT 14.8 SEC (11.7-14.0)
[2021-06-26 15:00] VITALS: BP 94/54
--- NOTE | 2021-06-26 17:18 | RAD ---
DG FLUOROSCOPIC GUIDED LUMBAR PUNCTURE 06/26/2021 11:41 AM INDICATION: Neuropathy COMPARISON: None available. PROCEDURE: Risks and benefits were discussed with the patient after which informed consent was obtained. Patien t was placed prone on the examination table. The L2-L3 interspace was localized under fluoroscopy. S ite was marked. Patient was prepped and draped in normal sterile fashion. 1 percent lidocaine was adm inistered for superficial anesthetic effect. A 22-gauge spinal needle was inserted into the thecal sa c under fluoroscopic guidance. 8 cc clear spinal fluid was obtained. Needle was removed and compressi on applied for hemostasis. Patient tolerated the procedure well. No complications were identified at the time procedure. Fluoroscopy time: 0.3 minutes Number of images: 1 IMPRESSION: Successful lumbar puncture under fluoroscopic guidance. Electronically signed by: Manisha Solitario MD (06/26/2021 5:16 PM) [id number]
[2021-06-26 19:00] VITALS: BP 112/51
[2021-06-26 23:07] VITALS: BP 114/66
[2021-06-27 03:28] VITALS: BP 142/62
[2021-06-27 07:00] VITALS: BP 114/60
[2021-06-27 07:43] LABS: CALCIUM 8.5 mg/dL (8.5-10.1); CREATININE 0.8 mg/dL (0.6-1.0); GFR 70.7; POTASSIUM 3.5 mmol/L (3.5-5.1)
[2021-06-27] MEDS: SENNOSIDES/DOCUSATE 8.6/50MG TABLET. PO SCH ×2 (09:15→20:54)
[2021-06-27] MEDS: OMEGA-3 FATTY ACIDS/FISH OIL 1,000 MG CAPSULE. PO SCH (09:15)
[2021-06-27] MEDS: PANTOPRAZOLE 40 MG TABLET.DR. PO SCH (09:15)
[2021-06-27] MEDS: MULTIVITAMIN with MINERAL TABLET. PO SCH (09:16)
[2021-06-27] MEDS: CALCIUM CARBONATE 500 MG TABLET PO SCH (09:16)
[2021-06-27] MEDS: FERROUS SULFATE 325 MG TABLET. PO SCH ×2 (09:16→18:18)
[2021-06-27] MEDS: SUCRALFATE 1 GM TABLET. PO SCH ×4 (09:16→20:54)
[2021-06-27] MEDS: BETHANECHOL CHLORIDE 10 MG TABLET. PO SCH ×3 (09:16→18:18)
[2021-06-27 11:00] VITALS: BP 115/67
--- NOTE | 2021-06-27 11:47 | PDOC ---
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 Pt was seen and examined. Discussed with RN. Pt is talkative about her hx. Diet: Well varied mostly with many multivitamins. Reports that only fruit is dates however consumes almost everything else including vegetables, grains, and red meat. Pt is requesting to be more mobile, pending what is the source of her months long onset of weakness/numbness. 06/26/2021 Patient seen and examined. Chart reviewed. Discussed with RN. Patient came back from lumbar puncture procedure awake and alert. NAD. Patient is talkative. Patient is on room air. Patient complains of fatigue which progresses to weakness. Her feet would go numb at times. Patient has good levator palpebrae muscle control. Vitals/I&O Vitals/I&O: Vital Signs Date Time Temp Pulse Resp B/P (MAP) Pulse Ox O2 Delivery O2 Flow Rate FiO2 06/27/21 07:00 98.7 92 16 114/60 (78) 97 Room Air 98.7 I & O 06/26/21 06/26/21 06/27/21 15:00 23:00 07:00 Intake Total 700 ml 300 ml Output Total 1150 ml Balance 700 ml 300 ml -1150 ml Physical Exam Physical Exam: Rice Catheter bag on bedside, straw colored, small volume Alert and talkative Neuro: 4/5 strength to L dorsiflexion/plantar flexion 4/5 strength to L knee extension 3/5 strength to R dorsiflexion/plantar flexion 3/5 strength to R knee extension 3/5 fly maker strength BL Appreciable fatigue with repetition of elbow flexion BL Cutaneous innervation intact to L4-S1 dermatomes BL with no obvious detriments 1+ Achilles DTR BL No obvious loss of tone General: Alert, Oriented X3, Cooperative, No acute distress Heart: Regular rate, Normal S1, Normal S2 Lungs: Clear Abdomen: Soft, No tenderness, No hepatosplenomegaly Extremities: No clubbing, No cyanosis, No edema, No tenderness/swelling Skin: No rashes, No significant lesion Labs Labs: Laboratory Tests Test 06/26/21 11:58 06/26/21 12:25 06/27/21 06:50 CSF Color Colorless CSF Clarity Clear CSF WBC 5 /cmm (Not Established) CSF RBC 1625 /cmm (Not Established) CSF Glucose 64 mg/dL (37-70) CSF Total Protein 37.4 mg/dL (15.0-45.0) Prothrombin Time 14.8 SEC (11.7-14.0) Prothromb Time International Ratio 1.2 (0.8-1.1) Sodium Level 136 mmol/L (136-145) Potassium Level 3.5 mmol/L (3.5-5.1) Chloride Level 101 mmol/L (98-107) Carbon Dioxide Level 27 mmol/L (21-32) Anion Gap 8 (6-14) Blood Urea Nitrogen 20 mg/dL (7-20) Creatinine 0.8 mg/dL (0.6-1.0) Estimated GFR (Cockcroft-Gault) 70.7 Glucose Level 99 mg/dL (70-99) Calcium Level 8.5 mg/dL (8.5-10.1) Review of Systems Review of Systems: Weakness Numbness Assessment and Plan Assessmemt and Plan Problems Medical Problems: (1) Generalized weakness Status: Acute (2) Liver cyst Status: Acute Weakness 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 Justifications for Admission Other Justification NASRA BEE III DO Jun 27, 2021 11:47
[2021-06-27] MEDS: ONDANSETRON PF 4 MG/2 ML VIAL. IVP PRN (14:18)
--- NOTE | 2021-06-27 14:53 | PDOC ---
PROGRESS NOTES Date of Service DATE: 06/27/21 TIME: 14:46 Assessment Problems Medical Problems: (1) Generalized weakness-she has undergone investigation and is not deficient in B12 or thyroid. She reports anemia was first noted in January 2021. She was started on iron sulfate. Despite this she is still anemic. She does have some jaw pain with chewing although it does not sound typical for claudication. She does have joint pain especially in the shoulders, hips and knees. Some of this has been longstanding. She does not complain of numbness. Prior to January she was walking a mile a day and now has difficulty supporting her weight. She does have preservation of some reflex at the knees, biceps and triceps. I am concerned we may be dealing with polymyalgia rheumatica more than chronic inflammatory demyelinating polyneuropathy. Status: Acute (2) Liver cyst Status: Acute Plan I will order a CRP to see if this is also elevated. We could consider an empiric trial of prednisone at 15 mg/day. She is concerned about using prednisone because she has adversely reacted to this before. It would be helpful to have a rheumatologic opinion. Subjective I have had arthritis beginning in grade school. I have had some trouble chewing but the dentist thinks it might be a tooth. I have had generalized weakness. I had an explosion earlier today in my pants that occurred even before I was aware I needed to go. Objective Vital Signs Date Time Temp Pulse Resp B/P (MAP) Pulse Ox O2 Delivery O2 Flow Rate FiO2 06/27/21 12:03 Room Air 06/27/21 11:00 97.8 87 20 115/67 (83) 96 97.8 Intake and Output 06/27/21 07:00 Intake Total 1000 ml Output Total 1150 ml Balance -150 ml Intake Oral 1000 ml Output Urine Total 1150 ml PHYSICAL EXAM She was lying in bed, alert, awake and cooperative. Speech was fluent and clear. She was able to give detailed history dating back to childhood and wanted to share this information. I had to redirect her on multiple occasions. Her fund of knowledge was excellent. Attention and concentration was intact. She had no difficulty following commands. Examination of the cranial nerves revealed visual buchanan were full to confrontation. Extraocular movements were intact. The eyes were conjugate. Pursuit movements were smooth and saccadic eye movements were without dysmetria. Pupils were 3 mm and reactive. Facial sensation was intact. Muscles of mastication and facial expression were powerful symmetrically. Hearing was intact to finger rub. The palate arched symmetrically and the tongue was midline with full motion. Sternocleidomastoid and trapezius were powerful bilaterally. Muscle bulk and tone was normal. She had difficulty raising her arm in the air but once I helped her do so she was able to maintain this without drift. Power was generally diminished more proximally than distally. Reflexes were trace at biceps and triceps as well as knees. There was also a trace right ankle jerk. Coordination testing with [id number] and fine motor was intact. She had difficulty with [id number] due to weakness and pain in the knees. Sensory exam was intact to sharp, light touch, cold thermal and vibration. Gait was not testable. Review of Relevant I have reviewed the following items genesis (where applicable) has been applied. Labs Laboratory Tests Test 06/26/21 08:50 06/26/21 11:58 06/26/21 12:25 06/27/21 06:50 Erythrocyte Sedimentation Rate 56 (0-25) Creatine Kinase 28 U/L (26-192) CSF Color Colorless CSF Clarity Clear CSF WBC 5 /cmm (Not Established) CSF RBC 1625 /cmm (Not Established) CSF Glucose 64 mg/dL (37-70) CSF Total Protein 37.4 mg/dL (15.0-45.0) Prothrombin Time 14.8 SEC (11.7-14.0) Prothromb Time International Ratio 1.2 (0.8-1.1) Sodium Level 136 mmol/L (136-145) Potassium Level 3.5 mmol/L (3.5-5.1) Chloride Level 101 mmol/L (98-107) Carbon Dioxide Level 27 mmol/L (21-32) Anion Gap 8 (6-14) Blood Urea Nitrogen 20 mg/dL (7-20) Creatinine 0.8 mg/dL (0.6-1.0) Estimated GFR (Cockcroft-Gault) 70.7 Glucose Level 99 mg/dL (70-99) Calcium Level 8.5 mg/dL (8.5-10.1) Laboratory Tests Test 06/27/21 06:50 Sodium Level 136 mmol/L (136-145) Potassium Level 3.5 mmol/L (3.5-5.1) Chloride Level 101 mmol/L (98-107) Carbon Dioxide Level 27 mmol/L (21-32) Anion Gap 8 (6-14) Blood Urea Nitrogen 20 mg/dL (7-20) Creatinine 0.8 mg/dL (0.6-1.0) Estimated GFR (Cockcroft-Gault) 70.7 Glucose Level 99 mg/dL (70-99) Calcium Level 8.5 mg/dL (8.5-10.1) Microbiology 06/26/21 CSF Gram Stain - Final, Complete 06/24/21 Urine Culture - Final, Complete Medications Current Medications Iohexol (Omnipaque 300 Mg/ml) 75 ml 1X ONCE IV Last administered on 06/24/21at 17:39; Start 06/24/21 at 17:30; Stop 06/24/21 at 17:31; Status DC Info (CONTRAST GIVEN -- Rx MONITORING) 1 each PRN DAILY PRN MC SEE COMMENTS; Start 06/24/21 at 17:30; Stop 06/26/21 at 17:29; Status DC Potassium Chloride (Klor-Con) 40 meq 1X ONCE PO Last administered on 06/24/21at 21:19; Start 06/24/21 at 18:15; Stop 06/24/21 at 18:16; Status DC Ondansetron HCl (Zofran) 4 mg PRN Q6HRS PRN IVP NAUSEA/VOMITING Last administered on 06/27/21at 14:18; Start 06/24/21 at 18:45 Calcium Carbonate/ Glycine (Tums) 500 mg PRN Q3HRS PRN PO UPSET STOMACH; Start 06/24/21 at 18:45 Info (Non-Icu Electrolyte Protocol) 1 ea PRN DAILY PRN MC SEE COMMENTS; Start 06/24/21 at 18:45 Oxycodone/ Acetaminophen (Percocet 5/325) 1 tab PRN Q4HRS PRN PO MILD PAIN, 1ST CHOICE; Start 06/24/21 at 18:45 Oxycodone/ Acetaminophen (Percocet 5/325) 2 tab PRN Q4HRS PRN PO MODERATE PAIN, SEVERE PAIN; Start 06/24/21 at 18:45 Acetaminophen (Tylenol) 650 mg PRN Q6HRS PRN PO Headaches, Temp > 101.5F; Start 06/24/21 at 18:45; Stop 06/25/21 at 16:06; Status DC Senna/Docusate Sodium (Senna Plus) 1 tab BID PO Last administered on 06/27/21at 09:15; Start 06/24/21 at 21:00 Heparin Sodium (Porcine) (Heparin Sodium) 5,000 unit Q12HR SQ Last administered on 06/25/21at 21:02; Start 06/24/21 at 21:00; Stop 06/26/21 at 08:37; Status DC Pantoprazole Sodium (Protonix) 40 mg DAILYAC PO Last administered on 06/25/21at 06:21; Start 06/24/21 at 20:30; Stop 06/25/21 at 16:06; Status DC Sucralfate (Carafate) 1 gm DAILY PO Last administered on 06/25/21at 09:25; Start 06/25/21 at 09:00; Stop 06/25/21 at 16:05; Status DC Influenza Virus Vaccine Quadrival (Flulaval Quad [id number] Syringe) 0.5 ml ONCE ONCE VAX IM ; Start 06/25/21 at 09:00; Stop 06/25/21 at 09:01; Status DC Bethanechol Chloride (Urecholine) 10 mg TIDAC PO Last administered on 06/27/21at 11:30; Start 06/25/21 at 16:30 Acetaminophen (Tylenol) 650 mg PRN Q6HRS PRN PO MILD PAIN 1-3; Start 06/25/21 at 16:15 Acetaminophen/ Codeine Phosphate (Tylenol #3) 1 tab PRN Q6HRS PRN PO MODERATE PAIN, 2ND CHOICE; Start 06/25/21 at 16:15 Calcium Carbonate/ Glycine (Oscal) 1,000 mg DAILY PO Last administered on 06/27/21at 09:16; Start 06/26/21 at 09:00 Ferrous Sulfate (Feosol) 325 mg BIDWMEALS PO Last administered on 06/27/21at 09:16; Start 06/25/21 at 17:00 Fish Oil (Fish Oil) 1,000 mg DAILY PO Last administered on 06/27/21at 09:15; Start 06/26/21 at 09:00 Pantoprazole Sodium (Protonix) 40 mg DAILYAC PO Last administered on 06/27/21at 09:15; Start 06/26/21 at 07:30 Sucralfate (Carafate) 1 gm QIDACHS PO Last administered on 06/27/21at 11:30; Start 06/25/21 at 16:30 Multivitamins (Thera M Plus) 1 tab DAILY PO Last administered on 06/27/21at 09:16; Start 06/26/21 at 09:00 Lidocaine HCl (Lidocaine 1% 20ml Vial) 20 ml 1X ONCE INJ Last administered on 06/26/21at 11:45; Start 06/26/21 at 10:15; Stop 06/26/21 at 10:16; Status DC Active Scripts Active Acetaminophen-Cod #3 Tablet (Acetaminophen/Codeine Phosphate) 1 Each Tablet 1 Tab PO PRN Q6HRS PRN 3 Days Reported Fish Oil 1,000 Mg Softgel ([place]-3 Fatty Acids/Fish Oil) 1 Each Capsule 2 Cap PO DAILY 30 Days Multi-Vitamin Daily (Multivitamin) 1 Each Tablet 1 Tab PO DAILY 30 Days Calcium (Calcium Carbonate) 500 Mg Tablet 2 Tab PO DAILY 30 Days Tylenol (Acetaminophen) 325 Mg Tablet 650 Mg PO Q6HRS PRN Ferrous Sulfate 325 Mg Tablet 1 Tab PO BID Pantoprazole Sodium (Pantoprazole Sodium) 40 Mg Tablet.dr 40 Mg PO DAILYAC Carafate (Sucralfate) 1 Gm Tablet 1 Tab PO QID 30 Days Vitals/I & O Vital Sign - Last 24 Hours 06/26/21 06/26/21 06/26/21 06/26/21 15:00 19:00 22:00 23:07 Temp 98.4 98.0 99.1 98.4 98.0 99.1 Pulse 99 100 101 Resp 18 20 20 B/P (MAP) 94/54 (67) 112/51 (71) 114/66 (82) Pulse Ox 99 97 96 O2 Delivery Room Air Room Air Room Air Room Air 06/27/21 06/27/21 06/27/21 06/27/21 03:28 07:00 08:09 11:00 Temp 98.9 98.7 97.8 98.9 98.7 97.8 Pulse 100 92 87 Resp 18 16 20 B/P (MAP) 142/62 (88) 114/60 (78) 115/67 (83) Pulse Ox 96 97 96 O2 Delivery Room Air Room Air Room Air Room Air 06/27/21 12:03 O2 Delivery Room Air Intake and Output 06/26/21 06/26/21 06/27/21 15:00 23:00 07:00 Intake Total 700 ml 300 ml Output Total 1150 ml Balance 700 ml 300 ml -1150 ml Justicifation of Admission Dx: Justifications for Admission: Justification of Admission Dx: Yes Comments: She has generalized weakness and cannot walk. DAPHNE DIXON MD Jun 27, 2021 14:53
[2021-06-27 15:00] VITALS: BP 123/72
[2021-06-27 19:45] VITALS: BP 108/60
[2021-06-27 23:15] VITALS: BP 109/56
[2021-06-28 04:10] VITALS: BP 113/58
[2021-06-28 07:00] VITALS: BP 111/58
[2021-06-28] MEDS: ONDANSETRON PF 4 MG/2 ML VIAL. IVP PRN (09:08)
[2021-06-28] MEDS: FERROUS SULFATE 325 MG TABLET. PO SCH ×2 (09:11→17:05)
[2021-06-28] MEDS: BETHANECHOL CHLORIDE 10 MG TABLET. PO SCH ×3 (09:11→17:07)
[2021-06-28] MEDS: SENNOSIDES/DOCUSATE 8.6/50MG TABLET. PO SCH ×2 (09:11→20:44)
[2021-06-28] MEDS: OMEGA-3 FATTY ACIDS/FISH OIL 1,000 MG CAPSULE. PO SCH (09:11)
[2021-06-28] MEDS: SUCRALFATE 1 GM TABLET. PO SCH ×4 (09:11→20:44)
[2021-06-28] MEDS: CALCIUM CARBONATE 500 MG TABLET PO SCH (09:11)
[2021-06-28] MEDS: MULTIVITAMIN with MINERAL TABLET. PO SCH (09:12)
[2021-06-28] MEDS: PANTOPRAZOLE 40 MG TABLET.DR. PO SCH (09:12)
[2021-06-28 11:00] VITALS: BP 110/60
--- NOTE | 2021-06-28 13:36 | PDOC ---
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 Discussed with RN. Chart reviewed 06/27/2021: Chart Reviewed. Pt was seen and examined. Discussed with RN. Pt is talkative about her hx. Diet: Well varied mostly with many multivitamins. Reports that only fruit is dates however consumes almost everything else including vegetables, grains, and red meat. Pt is requesting to be more mobile, pending what is the source of her months long onset of weakness/numbness. 06/26/2021 Patient seen and examined. Chart reviewed. Discussed with RN. Patient came back from lumbar puncture procedure awake and alert. NAD. Patient is talkative. Patient is on room air. Patient complains of fatigue which progresses to weakness. Her feet would go numb at times. Patient has good levator palpebrae muscle control. 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 BL Appreciable fatigue with repetition of elbow flexion BL Cutaneous innervation intact to L4-S1 dermatomes BL with no obvious detriments 1+ Achilles DTR BL No obvious loss of tone General: Alert, Oriented X3, Cooperative, No acute distress Heart: Regular rate, Normal S1, Normal S2 Lungs: Clear Abdomen: Soft, No tenderness, No hepatosplenomegaly Extremities: No clubbing, No cyanosis, No edema, No tenderness/swelling Skin: No rashes, No significant lesion Assessment and Plan Assessmemt and Plan Problems Medical Problems: (1) Generalized weakness Status: Acute (2) Liver cyst Status: Acute Weakness 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 FTT (failure to thrive) in adult Liver cyst Gastric ulcer Plan: Work-up in progress per neurology For now continue the following; Encourage PO intake Awaiting serology (including pending HARINDER, Oligoclonal, Ig Index, Protein electrophoresis, and CSF culture) Considering low-dose prednisone but patient refuses Trend labs PT/OT Home meds DVT prophylaxis Full Code Comment Review of Relevant I have reviewed the following items genesis (where applicable) has been applied. Justifications for Admission Other Justification NASRA BEE III DO Jun 28, 2021 13:36
--- NOTE | 2021-06-28 14:31 | NUR ---
Left routine consult message with [place] office for anemia, and possible history of RA.
[2021-06-28 15:00] VITALS: BP 118/54
--- NOTE | 2021-06-28 15:10 | PDOC ---
PROGRESS NOTES Date of Service DATE: 06/28/21 TIME: 15:06 Assessment Problems Medical Problems: (1) Generalized weakness-she has an elevated sed rate at 56 and CRP markedly eliezer vated to 111.5. HARINDER is still pending. I am still concerned this could represent polymyalgia rheumatica. I have ordered prednisone 15 mg daily which will start in the morning. She has not had prednisone for 25 years when she is was being treated for hayfever. It was not helpful for hayfever. It does not sound as if she actually has an allergy to prednisone. I spoke with the patient and daughter at length regarding the blood test on the differential. Dr. Day will be back to reevaluate on June 29, 2021. Cerebrospinal fluid results are still pending as well. Patient continues to have generalized weakness especially in the proximal muscles. Status: Acute (2) Liver cyst Status: Acute Plan I will initiate prednisone 15 mg daily beginning June 29, 2027. We will need to watch for any type of adverse reaction. She explains to me that she is very unusual and adversely reacts the opposite to what most medicines are supposed to do. Subjective I feel about the same. I am weak which has been going on since March. I was walking a mile a day in January. There have been times in my life when I for three or 4 days in the yard and I am fine the next day. There have been other times when I will work several days and then be out for a week. This is the longest time I have ever had difficulty. Objective Vital Signs Date Time Temp Pulse Resp B/P (MAP) Pulse Ox O2 Delivery O2 Flow Rate FiO2 06/28/21 11:00 97.5 83 16 110/60 (77) 94 Room Air 97.5 Intake and Output 06/28/21 07:00 Intake Total 1200 ml Output Total 3355 ml Balance -2155 ml Intake Oral 1200 ml Output Urine Total 3355 ml PHYSICAL EXAM She was alert, awake and cooperative. Speech was fluent and clear. She responded to questions quickly. The eyes were conjugate and face symmetric. Movements were symmetric. She was generally weak with hip flexion. It was uncomfortable for her to activate the muscles. Review of Relevant I have reviewed the following items genesis (where applicable) has been applied. Labs Laboratory Tests Test 06/27/21 06:50 Sodium Level 136 mmol/L (136-145) Potassium Level 3.5 mmol/L (3.5-5.1) Chloride Level 101 mmol/L (98-107) Carbon Dioxide Level 27 mmol/L (21-32) Anion Gap 8 (6-14) Blood Urea Nitrogen 20 mg/dL (7-20) Creatinine 0.8 mg/dL (0.6-1.0) Estimated GFR (Cockcroft-Gault) 70.7 Glucose Level 99 mg/dL (70-99) Calcium Level 8.5 mg/dL (8.5-10.1) C-Reactive Protein, Quantitative 111.5 mg/L (0-3.3) Microbiology 06/26/21 CSF Gram Stain - Final, Complete 06/24/21 Urine Culture - Final, Complete Medications Current Medications Iohexol (Omnipaque 300 Mg/ml) 75 ml 1X ONCE IV Last administered on 06/24/21at 17:39; Start 06/24/21 at 17:30; Stop 06/24/21 at 17:31; Status DC Info (CONTRAST GIVEN -- Rx MONITORING) 1 each PRN DAILY PRN MC SEE COMMENTS; Start 06/24/21 at 17:30; Stop 06/26/21 at 17:29; Status DC Potassium Chloride (Klor-Con) 40 meq 1X ONCE PO Last administered on 06/24/21at 21:19; Start 06/24/21 at 18:15; Stop 06/24/21 at 18:16; Status DC Ondansetron HCl (Zofran) 4 mg PRN Q6HRS PRN IVP NAUSEA/VOMITING Last administered on 06/28/21at 09:08; Start 06/24/21 at 18:45 Calcium Carbonate/ Glycine (Tums) 500 mg PRN Q3HRS PRN PO UPSET STOMACH; Start 06/24/21 at 18:45 Info (Non-Icu Electrolyte Protocol) 1 ea PRN DAILY PRN MC SEE COMMENTS; Start 06/24/21 at 18:45 Oxycodone/ Acetaminophen (Percocet 5/325) 1 tab PRN Q4HRS PRN PO MILD PAIN, 1ST CHOICE; Start 06/24/21 at 18:45 Oxycodone/ Acetaminophen (Percocet 5/325) 2 tab PRN Q4HRS PRN PO MODERATE PAIN, SEVERE PAIN; Start 06/24/21 at 18:45 Acetaminophen (Tylenol) 650 mg PRN Q6HRS PRN PO Headaches, Temp > 101.5F; Start 06/24/21 at 18:45; Stop 06/25/21 at 16:06; Status DC Senna/Docusate Sodium (Senna Plus) 1 tab BID PO Last administered on 06/28/21at 09:11; Start 06/24/21 at 21:00 Heparin Sodium (Porcine) (Heparin Sodium) 5,000 unit Q12HR SQ Last administered on 06/25/21at 21:02; Start 06/24/21 at 21:00; Stop 06/26/21 at 08:37; Status DC Pantoprazole Sodium (Protonix) 40 mg DAILYAC PO Last administered on 06/25/21at 06:21; Start 06/24/21 at 20:30; Stop 06/25/21 at 16:06; Status DC Sucralfate (Carafate) 1 gm DAILY PO Last administered on 06/25/21at 09:25; Start 06/25/21 at 09:00; Stop 06/25/21 at 16:05; Status DC Influenza Virus Vaccine Quadrival (Flulaval Quad [id number] Syringe) 0.5 ml ONCE ONCE VAX IM ; Start 06/25/21 at 09:00; Stop 06/25/21 at 09:01; Status DC Bethanechol Chloride (Urecholine) 10 mg TIDAC PO Last administered on 06/28/21at 13:23; Start 06/25/21 at 16:30 Acetaminophen (Tylenol) 650 mg PRN Q6HRS PRN PO MILD PAIN 1-3 Last administered on 06/28/21at 04:26; Start 06/25/21 at 16:15 Acetaminophen/ Codeine Phosphate (Tylenol #3) 1 tab PRN Q6HRS PRN PO MODERATE PAIN, 2ND CHOICE; Start 06/25/21 at 16:15 Calcium Carbonate/ Glycine (Oscal) 1,000 mg DAILY PO Last administered on 06/28/21at 09:11; Start 06/26/21 at 09:00 Ferrous Sulfate (Feosol) 325 mg BIDWMEALS PO Last administered on 06/28/21at 09:11; Start 06/25/21 at 17:00 Fish Oil (Fish Oil) 1,000 mg DAILY PO Last administered on 06/28/21at 09:11; Start 06/26/21 at 09:00 Pantoprazole Sodium (Protonix) 40 mg DAILYAC PO Last administered on 06/28/21at 09:12; Start 06/26/21 at 07:30 Sucralfate (Carafate) 1 gm QIDACHS PO Last administered on 06/28/21at 09:11; Start 06/25/21 at 16:30 Multivitamins (Thera M Plus) 1 tab DAILY PO Last administered on 06/28/21at 09:12; Start 06/26/21 at 09:00 Lidocaine HCl (Lidocaine 1% 20ml Vial) 20 ml 1X ONCE INJ Last administered on 06/26/21at 11:45; Start 06/26/21 at 10:15; Stop 06/26/21 at 10:16; Status DC Active Scripts Active Acetaminophen-Cod #3 Tablet (Acetaminophen/Codeine Phosphate) 1 Each Tablet 1 Tab PO PRN Q6HRS PRN 3 Days Reported Fish Oil 1,000 Mg Softgel ([place]-3 Fatty Acids/Fish Oil) 1 Each Capsule 2 Cap PO DAILY 30 Days Multi-Vitamin Daily (Multivitamin) 1 Each Tablet 1 Tab PO DAILY 30 Days Calcium (Calcium Carbonate) 500 Mg Tablet 2 Tab PO DAILY 30 Days Tylenol (Acetaminophen) 325 Mg Tablet 650 Mg PO Q6HRS PRN Ferrous Sulfate 325 Mg Tablet 1 Tab PO BID Pantoprazole Sodium (Pantoprazole Sodium) 40 Mg Tablet.dr 40 Mg PO DAILYAC Carafate (Sucralfate) 1 Gm Tablet 1 Tab PO QID 30 Days Vitals/I & O Vital Sign - Last 24 Hours 06/27/21 06/27/21 06/27/21 06/28/21 19:45 20:15 23:15 03:00 Temp 97.6 97.3 97.6 97.3 Pulse 77 93 Resp 21 B/P (MAP) 108/60 (76) 109/56 (73) Pulse Ox 97 97 O2 Delivery Room Air Room Air Room Air Room Air 06/28/21 06/28/21 06/28/21 04:10 07:00 11:00 Temp 98.8 97.7 97.5 98.8 97.7 97.5 Pulse 93 85 83 Resp 20 16 16 B/P (MAP) 113/58 (76) 111/58 (75) 110/60 (77) Pulse Ox 97 95 94 O2 Delivery Room Air Room Air Room Air Intake and Output 06/27/21 06/27/21 06/28/21 15:00 23:00 07:00 Intake Total 400 ml 200 ml 600 ml Output Total 1000 ml 1155 ml 1200 ml Balance -600 ml -955 ml -600 ml Justicifation of Admission Dx: Justifications for Admission: Justification of Admission Dx: Yes DAPHNE DIXON MD Jun 28, 2021 15:10
[2021-06-28] MEDS: predniSONE 5 MG TABLET PO SCH (16:00)
[2021-06-28 19:00] VITALS: BP 112/71
[2021-06-28 22:44] VITALS: BP 110/62
[2021-06-29 02:48] VITALS: BP 110/64
[2021-06-29 07:15] VITALS: BP 110/70
[2021-06-29] MEDS: MULTIVITAMIN with MINERAL TABLET. PO SCH (08:08)
[2021-06-29] MEDS: OMEGA-3 FATTY ACIDS/FISH OIL 1,000 MG CAPSULE. PO SCH (08:08)
[2021-06-29] MEDS: SENNOSIDES/DOCUSATE 8.6/50MG TABLET. PO SCH ×2 (08:08→20:21)
[2021-06-29] MEDS: CALCIUM CARBONATE 500 MG TABLET PO SCH (08:09)
[2021-06-29] MEDS: SUCRALFATE 1 GM TABLET. PO SCH ×4 (08:09→20:22)
[2021-06-29] MEDS: PANTOPRAZOLE 40 MG TABLET.DR. PO SCH (08:09)
[2021-06-29] MEDS: FERROUS SULFATE 325 MG TABLET. PO SCH ×2 (08:09→17:00)
[2021-06-29] MEDS: BETHANECHOL CHLORIDE 10 MG TABLET. PO SCH ×3 (08:09→16:30)
[2021-06-29] MEDS: predniSONE 5 MG TABLET PO SCH (08:11)
--- NOTE | 2021-06-29 09:49 | PDOC ---
[facility] PROGRESS NOTE Date of Service DOS: DATE: 06/29/21 TIME: 09:48 Chief Complaint Chief Complaint Weakness Overactive bladder FTT (failure to thrive) in adult Liver cyst Gastric ulcer History of Present Illness History of Present Illness Patient is a 70-year-old female presented to the emergency room today due to 3- month history of weakness. Patient says that things started late January early March 2021. She noticed she was feeling weaker than usual as she had been previously walking at least a mile a day and started struggling to do that. She also noticed food was not tasting very good so she decreased appetite. Says she has lost about 20 to 25 pounds over the course of the summer. Went to her primary care physician who noticed on lab work she was anemic and was iron deficient. Is secondary to a GI doctor to evaluate for any bleeding. She had an EGD performed by a physician who she thinks is associated with or [facility] or somewhere in [place].? Either way she said they found gastritis along with gastric ulcers. Says she was placed on sucralfate after this. Does report she had been having some diarrhea prior to being placed on sucralfate and it has helps this. Says she was placed on iron as well by her primary care physician. Also saw a physical therapist 1 time who recommended she use a walker and says she has been walking "funny" ever since. 06/26: Patient came back from lumbar puncture procedure awake and alert. NAD. Patient is talkative. Patient is on room air. Patient complains of fatigue which progressed 06/27: CRP 111. Chart Reviewed. Pt was seen and examined. Discussed with RN. Pt is talkative about her hx. 06/28: Patient seen and examined. Feeling more weak, having nausea and vomiting and 2 episodes of fecal incontinence Afebrile. Feeling more weak. She says after speaking with her sister she does not want to take prednisone today. Planning for EMGs with neurology today Vitals/I&O Vitals/I&O: Vital Signs Date Time Temp Pulse Resp B/P (MAP) Pulse Ox O2 Delivery O2 Flow Rate FiO2 06/29/21 08:00 Room Air 06/29/21 07:15 98.4 89 18 110/70 (83) 98 98.4 I & O 06/28/21 06/28/21 06/29/21 15:00 23:00 07:00 Intake Total 60 ml Output Total 475 ml Balance -475 ml 60 ml Physical Exam Physical Exam: Rice Catheter bag on bedside, straw colored, small volume Alert and talkative Neuro: 4/5 strength to L dorsiflexion/plantar flexion 4/5 strength to L knee extension 3/5 strength to R dorsiflexion/plantar flexion 3/5 strength to R knee extension 3/5 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 architect 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 BL Appreciable fatigue with repetition of elbow flexion BL Cutaneous innervation intact to L4-S1 dermatomes BL with no obvious detriments 1+ Achilles DTR BL No obvious loss of tone General: Alert, Oriented X3, Cooperative, No acute distress Heart: Regular rate, Normal S1, Normal S2 Lungs: Clear Abdomen: Soft, No tenderness, No hepatosplenomegaly Extremities: No clubbing, No cyanosis, No edema, No tenderness/swelling Skin: No rashes, No significant lesion Assessment and Plan Assessmemt and Plan Problems Medical Problems: (1) Generalized weakness Status: Acute (2) Liver cyst Status: Acute Comment Review of Relevant I have reviewed the following items genesis (where applicable) has been applied. Justifications for Admission Other Justification RAMILA VICENTE MD Jun 29, 2021 09:49
[2021-06-29] MEDS: ONDANSETRON PF 4 MG/2 ML VIAL. IVP PRN ×2 (10:04→17:12)
--- NOTE | 2021-06-29 10:06 | PDOC ---
PROGRESS NOTES Date of Service DATE: 06/29/21 TIME: 10:01 Assessment Problems Medical Problems: (1) Generalized weakness Status: Acute (2) Liver cyst Status: Acute Generalized weakness, picture of peripheral neuropathy, has elevated sed imentation rate and CRP with HARINDER and protein electrophoresis. Consider myopathy, but patient denies pain. LP not consistent with CIDP. She has normal B12 and TSH Mild white matter disease on the brain MRI, mild degenerative cervical spine changes on the cervical MRI Plan Dr. Gonzalez ordered prednisone, patient wants to wait and think it over. I will do an EMG today Await rest of tests Rehabilitation modalities Subjective HeadacheNo change in complaints, denies temporal artery pain or headache Objective Vital Signs Date Time Temp Pulse Resp B/P (MAP) Pulse Ox O2 Delivery O2 Flow Rate FiO2 06/29/21 08:00 Room Air 06/29/21 07:15 98.4 89 18 110/70 (83) 98 98.4 Intake and Output 06/29/21 07:00 Intake Total 60 ml Output Total 475 ml Balance -415 ml Intake Oral 60 ml Output Urine Total 475 ml # Voids 2 # Bowel Movements 2 PHYSICAL EXAM Temporal arteries pulsatile and nontender Alert. Oriented to time, place and person. PERRL. EOMI. CN: no focal findings. Muscle tone: normal. Muscle strength: 4/5 DTR: 0-1+ Plantar reflex: flexor Gait: not examined in bed. Sensory exam: Slight stocking-glove loss. No cerebellar signs elicited. Review of Relevant I have reviewed the following items genesis (where applicable) has been applied. Labs Laboratory Tests Test 06/29/21 09:15 Red Blood Count 4.55 x10^6/uL (3.50-5.70) Absolute Reticulocyte Count 0.096 x10^6/uL (0.020-0.120) Percent Reticulocyte Count 2.1 % (0.5-2.3) Immature Reticulocyte Fraction 0.47 (0.20-0.60) Laboratory Tests Test 06/29/21 09:15 Red Blood Count 4.55 x10^6/uL (3.50-5.70) Absolute Reticulocyte Count 0.096 x10^6/uL (0.020-0.120) Percent Reticulocyte Count 2.1 % (0.5-2.3) Immature Reticulocyte Fraction 0.47 (0.20-0.60) Microbiology 06/26/21 CSF Gram Stain - Final, Complete 06/24/21 Urine Culture - Final, Complete Medications Current Medications Iohexol (Omnipaque 300 Mg/ml) 75 ml 1X ONCE IV Last administered on 06/24/21at 17:39; Start 06/24/21 at 17:30; Stop 06/24/21 at 17:31; Status DC Info (CONTRAST GIVEN -- Rx MONITORING) 1 each PRN DAILY PRN MC SEE COMMENTS; Start 06/24/21 at 17:30; Stop 06/26/21 at 17:29; Status DC Potassium Chloride (Klor-Con) 40 meq 1X ONCE PO Last administered on 06/24/21at 21:19; Start 06/24/21 at 18:15; Stop 06/24/21 at 18:16; Status DC Ondansetron HCl (Zofran) 4 mg PRN Q6HRS PRN IVP NAUSEA/VOMITING Last administered on 06/28/21at 09:08; Start 06/24/21 at 18:45 Calcium Carbonate/ Glycine (Tums) 500 mg PRN Q3HRS PRN PO UPSET STOMACH; Start 06/24/21 at 18:45 Info (Non-Icu Electrolyte Protocol) 1 ea PRN DAILY PRN MC SEE COMMENTS; Start 06/24/21 at 18:45 Oxycodone/ Acetaminophen (Percocet 5/325) 1 tab PRN Q4HRS PRN PO MILD PAIN, 1ST CHOICE; Start 06/24/21 at 18:45 Oxycodone/ Acetaminophen (Percocet 5/325) 2 tab PRN Q4HRS PRN PO MODERATE PAIN, SEVERE PAIN; Start 06/24/21 at 18:45 Acetaminophen (Tylenol) 650 mg PRN Q6HRS PRN PO Headaches, Temp > 101.5F; St art 06/24/21 at 18:45; Stop 06/25/21 at 16:06; Status DC Senna/Docusate Sodium (Senna Plus) 1 tab BID PO Last administered on 06/29/21at 08:08; Start 06/24/21 at 21:00 Heparin Sodium (Porcine) (Heparin Sodium) 5,000 unit Q12HR SQ Last administered on 06/25/21at 21:02; Start 06/24/21 at 21:00; Stop 06/26/21 at 08:37; Status DC Pantoprazole Sodium (Protonix) 40 mg DAILYAC PO Last administered on 06/25/21at 06:21; Start 06/24/21 at 20:30; Stop 06/25/21 at 16:06; Status DC Sucralfate (Carafate) 1 gm DAILY PO Last administered on 06/25/21at 09:25; Start 06/25/21 at 09:00; Stop 06/25/21 at 16:05; Status DC Influenza Virus Vaccine Quadrival (Flulaval Quad [id number] Syringe) 0.5 ml ONCE ONCE VAX IM ; Start 06/25/21 at 09:00; Stop 06/25/21 at 09:01; Status DC Bethanechol Chloride (Urecholine) 10 mg TIDAC PO Last administered on 06/29/21at 08:09; Start 06/25/21 at 16:30 Acetaminophen (Tylenol) 650 mg PRN Q6HRS PRN PO MILD PAIN 1-3 Last administered on 06/28/21at 04:26; Start 06/25/21 at 16:15 Acetaminophen/ Codeine Phosphate (Tylenol #3) 1 tab PRN Q6HRS PRN PO MODERATE PAIN, 2ND CHOICE; Start 06/25/21 at 16:15 Calcium Carbonate/ Glycine (Oscal) 1,000 mg DAILY PO Last administered on 06/29/21at 08:09; Start 06/26/21 at 09:00 Ferrous Sulfate (Feosol) 325 mg BIDWMEALS PO Last administered on 06/29/21at 08:09; Start 06/25/21 at 17:00 Fish Oil (Fish Oil) 1,000 mg DAILY PO Last administered on 06/29/21at 08:08; Start 06/26/21 at 09:00 Pantoprazole Sodium (Protonix) 40 mg DAILYAC PO Last administered on 06/29/21at 08:09; Start 06/26/21 at 07:30 Sucralfate (Carafate) 1 gm QIDACHS PO Last administered on 06/29/21at 08:09; Start 06/25/21 at 16:30 Multivitamins (Thera M Plus) 1 tab DAILY PO Last administered on 06/29/21at 08:08; Start 06/26/21 at 09:00 Lidocaine HCl (Lidocaine 1% 20ml Vial) 20 ml 1X ONCE INJ Last administered on 06/26/21at 11:45; Start 06/26/21 at 10:15; Stop 06/26/21 at 10:16; Status DC Prednisone (Prednisone) 15 mg DAILY PO ; Start 06/28/21 at 16:00 Active Scripts Active Acetaminophen-Cod #3 Tablet (Acetaminophen/Codeine Phosphate) 1 Each Tablet 1 Tab PO PRN Q6HRS PRN 3 Days Reported Fish Oil 1,000 Mg Softgel ([place]-3 Fatty Acids/Fish Oil) 1 Each Capsule 2 Cap PO DAILY 30 Days Multi-Vitamin Daily (Multivitamin) 1 Each Tablet 1 Tab PO DAILY 30 Days Calcium (Calcium Carbonate) 500 Mg Tablet 2 Tab PO DAILY 30 Days Tylenol (Acetaminophen) 325 Mg Tablet 650 Mg PO Q6HRS PRN Ferrous Sulfate 325 Mg Tablet 1 Tab PO BID Pantoprazole Sodium (Pantoprazole Sodium) 40 Mg Tablet.dr 40 Mg PO DAILYAC Carafate (Sucralfate) 1 Gm Tablet 1 Tab PO QID 30 Days Vitals/I & O Vital Sign - Last 24 Hours 06/28/21 06/28/21 06/28/21 06/28/21 11:00 15:00 19:00 19:55 Temp 97.5 98.0 97.8 97.5 98.0 97.8 Pulse 83 88 94 Resp 16 20 18 B/P (MAP) 110/60 (77) 118/54 (75) 112/71 (85) Pulse Ox 94 96 98 O2 Delivery Room Air Room Air Room Air Room Air 06/28/21 06/29/21 06/29/21 06/29/21 22:44 02:48 07:15 08:00 Temp 98.3 97.9 98.4 98.3 97.9 98.4 Pulse 90 91 89 Resp 18 17 18 B/P (MAP) 110/62 (78) 110/64 (79) 110/70 (83) Pulse Ox 96 98 98 O2 Delivery Room Air Room Air Room Air Room Air Intake and Output 06/28/21 06/28/21 06/29/21 15:00 23:00 07:00 Intake Total 60 ml Output Total 475 ml Balance -475 ml 60 ml Images Brain MRI without contrast. HISTORY: Generalized weakness. Neck pain. TECHNIQUE: Multiplanar, multisequence magnetic resonance imaging of the brain was performed without contrast. COMPARISON: CT dated 06/24/2021. FINDINGS: There is no restricted diffusion to suggest acute or subacute infarction. There is no susceptibility effect to suggest hemorrhage. There is no mass effect or midline shift. There is no hydrocephalus. There is mild age- appropriate cerebral volume loss. There are small focal areas of T2 such FLAIR hyperintensity within the left greater than right centrum semiovale. There is evidence of right lens surgery. The paranasal sinuses are clear. There is minimal left mastoid fluid. There is no suspicious calvarial lesion. There are normal flow voids within the cerebral vessels. IMPRESSION: 1. No acute intracranial finding. 2. Nonspecific foci of signal change within the left greater than right centrum semiovale. This is typically due to chronic small vessel disease in patients of this age. However, given the lesion configuration and configuration, the possibility of foci of chronic demyelination is not excluded. Cervical spine MRI without contrast. HISTORY: Neck pain. Weakness. TECHNIQUE: Multiplanar, multisequence magnetic resonance imaging of the cervical spine was performed without contrast. COMPARISON: None. FINDINGS: There is mild cervical kyphosis. There is 3 mm anterolisthesis of C4 on C5. There is endplate remodeling primarily at the mid lower cervical levels. There is no suspicious osseous lesion. There is no acute or subacute fracture. No spinal cord lesion is seen. At C2-C3, there is mild left facet arthropathy. There is no stenosis. At C3-C4, there is moderate bilateral facet arthropathy. There is no stenosis. At C4-C5, there is moderate right and mild left facet arthropathy. There is endplate remodeling. There is mild right foraminal stenosis. At C5-C6, there is a disc bulge and endplate remodeling. There is mild lateral facet arthropathy. There is uncovertebral arthropathy. There is mild left foraminal stenosis. At C5-C6, there is a disc bulge and endplate remodeling. There is mild left facet arthropathy. There is no stenosis. IMPRESSION: Multilevel degenerative change involving the cervical spine, described in detail above. This is associated with mild right foraminal stenosis at C4-C5 and mild left foraminal stenosis at C5-C6. No spinal cord lesion is seen. Justicifation of Admission Dx: Justifications for Admission: Justification of Admission Dx: Yes LAURA HUERTA MD Jun 29, 2021 10:06
[2021-06-29 10:58] VITALS: BP 108/69
--- NOTE | 2021-06-29 11:08 | NUR ---
SW following. Discussed with RN, pt from home, room air, regular diet. Pt having an EMG today at 1300. Pt accepted at [facility] for SNF, not yet submitted for insurance auth until pt medically cleared. SW will continue to follow.
[2021-06-29] MEDS: IV NORMAL SALINE 1000ML BAG 1,000 ML IV SCH (13:30)
[2021-06-29] MEDS ORDERED: FLU VACC QUAD 21-22 (6MOS+) PF 0.5 ML SYRINGE. VAX IM ONE (13:45)
--- NOTE | 2021-06-29 13:45 | PDOC ---
Provider Note Date of Service: DATE: 06/29/21 TIME: 13:44 Provider Note EMG REPORT Patient Complaints: Evaluate peripheral neuropathy or myopathy Patient History / Exam: See EMR NCV & EMG Findings: Evaluation of the Left peroneal motor nerve showed reduced amplitude (0.6 mV). The Left sural sensory and the Right sural sensory nerves showed no response (Calf). All remaining nerves (as indicated in the following tables) were within normal limits. Needle evaluation of the Right extensor hallucis longus and the Left extensor hallucis longus muscles showed increased motor unit duration, slightly increased polyphasic potentials, diminished recruitment, and moderately decreased interference pattern. All remaining muscles (as indicated in the following table) showed no evidence of electrical instability. Impression: 1. 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 Differential diagnosis includes diabetes, uremia and other metabolic problems, vitamin deficiencies, alcoholism, connective tissue disease, toxins, medications, paraneoplastic synd romes, various infections, hereditary causes. 2. There is no sign of lumbosacral radiculopathy on either side. 3. There is no sign of lumbosacral plexopathy on either side. 4. There is no evidence of myopathy affecting the studied extremities. Recommendations: See EMR Thank you very much for letting me help with the patient's care. Laura Huerta M.D., FAAN Electronically authenticated 06/29/2021 1:35:06 PM Cc: Dr Paulino Nerve Conduction Studies Anti Sensory Summary Table Site NR Onset (ms) Norm Onset (ms) O-P Amp (V) Norm O-P Amp Site1 Site2 Delta- 0 (ms) Dist (cm) Khoa (m/s) Norm Khoa (m/s) Left Sural Anti Sensory (Lat Mall) Calf NR >5.0 Calf Lat Mall 14.0 >35 Right Sural Anti Sensory (Lat Mall) Calf NR >5.0 Calf Lat Mall 14.0 >35 Motor Summary Table Site NR Onset (ms) Norm Onset (ms) P-T Amp (mV) Norm P-T Amp Site1 Site2 Delta- 0 (ms) Dist (cm) Khoa (m/s) Norm Khoa (m/s) Left Peroneal Motor (Ext Dig Brev) Ankle 4.2 <4.8 0.6 >4 B Fib Ankle 5.4 24.0 44 >40 B Fib 9.6 0.3 Poplt B Fib 1.3 12.0 92 >40 Poplt 10.9 1.8 Left Tibial Motor (Abd Finley Brev) Ankle 4.9 <6.0 10.9 >4.0 Knee Ankle 8.8 40.0 45 >40 Knee 13.7 8.0 EMG Side Muscle Nerve Root Ins Act Fibs Psw Amp Dur Poly Recrt Int Pat Comment Right ExtHallLong Dp Br Peron L5, S1 Nml Nml Nml Nml >12ms 1+ Reduced 75% chronic neurogenic Right Gastroc Tibial S1-2 Nml Nml Nml Nml Nml 0 Nml Nml Right AntTibialis Dp Br Peron L4-5 Nml Nml Nml Nml Nml 0 Nml Nml Right VastusMed Femoral L2-4 Nml Nml Nml Nml Nml 0 Nml Nml Right BicepsFemL Sciatic L5-S2 Nml Nml Nml Nml Nml 0 Nml Nml Right Lumbo Parasp Up Rami L1-2 Nml Nml Nml Right Lumbo Parasp Mid Rami L3-4 Nml Nml Nml Right Lumbo Parasp Low Rami L5-S1 Nml Nml Nml Left ExtHallLong Dp Br Peron L5, S1 Nml Nml Nml Nml >12ms 1+ Reduced 75% chronic neurogenic Left Gastroc Tibial S1-2 Nml Nml Nml Nml Nml 0 Nml Nml Left AntTibialis Dp Br Peron L4-5 Nml Nml Nml Nml Nml 0 Nml Nml Left VastusMed Femoral L2-4 Nml Nml Nml Nml Nml 0 Nml Nml Left BicepsFemL Sciatic L5-S2 Nml Nml Nml Nml Nml 0 Nml Nml Left Lumbo Parasp Up Rami L1-2 Nml Nml Nml Left Lumbo Parasp Mid Rami L3-4 Nml Nml Nml Left Lumbo Parasp Low Rami L5-S1 Nml Nml Nml Nerve Conduction Studies Anti Sensory Left/Right Comparison Site L Lat (ms) R Lat (ms) L-R Lat (ms) L Amp (V) R Amp (V) L-R Amp (%) Site1 Site2 L Khoa (m/s) R Khoa (m/s) L-R Khoa (m/s) Sural Anti Sensory (Lat Mall) Calf Calf Lat Mall Motor Left/Right Comparison Site L Lat (ms) R Lat (ms) L-R Lat (ms) L Amp (mV) R Amp (mV) L-R Amp (%) Site1 Site2 L Khoa (m/s) R Khoa (m/s) L-R Khoa (m/s) Peroneal Motor (Ext Dig Brev) Ankle 4.2 0.6 B Fib Ankle 44 B Fib 9.6 0.3 Poplt B Fib 92 Poplt 10.9 1.8 Tibial Motor (Abd Finley Brev) Ankle 4.9 10.9 Knee Ankle 45 Knee 13.7 8.0 Justifications for Admission Other Justification LAURA HUERTA MD Jun 29, 2021 13:45
[2021-06-29 14:46] VITALS: BP 116/59
[2021-06-29 15:12] LABS: ALBUMIN,CSF 18 mg/dL (10-46); ALBUMIN,SERUM 2.9 g/dL (3.7-4.7); CSF IGG INDEX 0.8 (0.0-0.7); IGG,SERUM 1409 mg/dL (586-1602)
[2021-06-29 16:11] LABS: ALBUM 2.4 g/dL (2.9-4.4); ALPHA 1 0.5 g/dL (0.0-0.4); ALPHA 2 0.9 g/dL (0.4-1.0); GAMMA 1.5 g/dL (0.4-1.8); PROTEIN TOTAL 6.3 g/dL (6.0-8.5); SPEP AG RATIO 0.6 (0.7-1.7)
[2021-06-29 19:00] VITALS: BP 101/58
[2021-06-29 20:08] LABS: ANA INTERP Negative (.)
[2021-06-29 22:45] VITALS: BP 107/56
[2021-06-30] VITALS (8 sets, daily range): BP systolic 100–119; BP diastolic 48–68
[2021-06-30] MEDS: PANTOPRAZOLE 40 MG TABLET.DR. PO SCH (06:23)
[2021-06-30] MEDS: SUCRALFATE 1 GM TABLET. PO SCH ×4 (06:23→21:24)
[2021-06-30] MEDS: BETHANECHOL CHLORIDE 10 MG TABLET. PO SCH ×4 (06:23→17:14)
[2021-06-30] MEDS: IV NORMAL SALINE 1000ML BAG 1,000 ML IV SCH ×2 (06:25→21:24)
--- NOTE | 2021-06-30 08:44 | PDOC ---
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 The elevated sedimentation rate and CRP imply there is some sort of other inflammatory process. Mild white matter disease on the brain MRI, mild degenerative cervical spine changes on the cervical MRI Plan I discussed the risk, benefits, alternatives, and side effects with the patient and her niece. I am starting intravenous immunoglobulin, 0.4 g/kg daily for 5 days She did have imaging of the chest abdomen and pelvis as recently as March, I want a repeat CT of the chest abdomen and pelvis Await rest of tests: ANCA, reticulocytes, light chains, erythropoietin, copper. Note that that I already ordered protein electrophoresis and HARINDER, both of which were negative. Oncology help appreciated Rehabilitation modalities Also discussed with Dr. Benavides Subjective No change in complaint Objective Vital Signs Date Time Temp Pulse Resp B/P (MAP) Pulse Ox O2 Delivery O2 Flow Rate FiO2 06/30/21 07:15 97.7 79 18 110/61 (77) 97 Room Air 97.7 Intake and Output 06/30/21 07:00 Intake Total 420 ml Output Total 1275 ml Balance -855 ml Intake Oral 420 ml Output Urine Total 1275 ml PHYSICAL EXAM Temporal arteries pulsatile and nontender Alert. Oriented to time, place and person. PERRL. EOMI. CN: no focal findings. Muscle tone: normal. Muscle strength: 4/5 DTR: 0-1+ Plantar reflex: flexor Gait: not examined in bed. Sensory exam: Slight stocking-glove loss. No cerebellar signs elicited. Review of Relevant I have reviewed the following items genesis (where applicable) has been applied. Labs Laboratory Tests Test 06/29/21 09:15 Red Blood Count 4.55 x10^6/uL (3.50-5.70) Absolute Reticulocyte Count 0.096 x10^6/uL (0.020-0.120) Percent Reticulocyte Count 2.1 % (0.5-2.3) Immature Reticulocyte Fraction 0.47 (0.20-0.60) Laboratory Tests Test 06/29/21 09:15 Red Blood Count 4.55 x10^6/uL (3.50-5.70) Absolute Reticulocyte Count 0.096 x10^6/uL (0.020-0.120) Percent Reticulocyte Count 2.1 % (0.5-2.3) Immature Reticulocyte Fraction 0.47 (0.20-0.60) Microbiology 06/26/21 CSF Gram Stain - Final, Complete 06/24/21 Urine Culture - Final, Complete Medications Current Medications Iohexol (Omnipaque 300 Mg/ml) 75 ml 1X ONCE IV Last administered on 06/24/21at 17:39; Start 06/24/21 at 17:30; Stop 06/24/21 at 17:31; Status DC Info (CONTRAST GIVEN -- Rx MONITORING) 1 each PRN DAILY PRN MC SEE COMMENTS; Start 06/24/21 at 17:30; Stop 06/26/21 at 17:29; Status DC Potassium Chloride (Klor-Con) 40 meq 1X ONCE PO Last administered on 06/24/21at 21:19; Start 06/24/21 at 18:15; Stop 06/24/21 at 18:16; Status DC Ondansetron HCl (Zofran) 4 mg PRN Q6HRS PRN IVP NAUSEA/VOMITING Last administered on 06/29/21at 17:12; Start 06/24/21 at 18:45 Calcium Carbonate/ Glycine (Tums) 500 mg PRN Q3HRS PRN PO UPSET STOMACH; Start 06/24/21 at 18:45 Info (Non-Icu Electrolyte Protocol) 1 ea PRN DAILY PRN MC SEE COMMENTS; Start 06/24/21 at 18:45 Oxycodone/ Acetaminophen (Percocet 5/325) 1 tab PRN Q4HRS PRN PO MILD PAIN, 1ST CHOICE; Start 06/24/21 at 18:45 Oxycodone/ Acetaminophen (Percocet 5/325) 2 tab PRN Q4HRS PRN PO MODERATE PAIN, SEVERE PAIN; Start 06/24/21 at 18:45 Acetaminophen (Tylenol) 650 mg PRN Q6HRS PRN PO Headaches, Temp > 101.5F; Start 06/24/21 at 18:45; Stop 06/25/21 at 16:06; Status DC Senna/Docusate Sodium (Senna Plus) 1 tab BID PO Last administered on 06/29/21at 20:21; Start 06/24/21 at 21:00 Heparin Sodium (Porcine) (Heparin Sodium) 5,000 unit Q12HR SQ Last administered on 06/25/21at 21:02; Start 06/24/21 at 21:00; Stop 06/26/21 at 08:37; Status DC Pantoprazole Sodium (Protonix) 40 mg DAILYAC PO Last administered on 06/25/21at 06:21; Start 06/24/21 at 20:30; Stop 06/25/21 at 16:06; Status DC Sucralfate (Carafate) 1 gm DAILY PO Last administered on 06/25/21at 09:25; Start 06/25/21 at 09:00; Stop 06/25/21 at 16:05; Status DC Influenza Virus Vaccine Quadrival (Flulaval Quad [id number] Syringe) 0.5 ml ONCE ONCE VAX IM ; Start 06/25/21 at 09:00; Stop 06/25/21 at 09:01; Status DC Bethanechol Chloride (Urecholine) 10 mg TIDAC PO Last administered on 06/30/21at 06:23; Start 06/25/21 at 16:30 Acetaminophen (Tylenol) 650 mg PRN Q6HRS PRN PO MILD PAIN 1-3 Last administered on 06/28/21at 04:26; Start 06/25/21 at 16:15 Acetaminophen/ Codeine Phosphate (Tylenol #3) 1 tab PRN Q6HRS PRN PO MODERATE PAIN, 2ND CHOICE; Start 06/25/21 at 16:15 Calcium Carbonate/ Glycine (Oscal) 1,000 mg DAILY PO Last administered on 06/29/21at 08:09; Start 06/26/21 at 09:00 Ferrous Sulfate (Feosol) 325 mg BIDWMEALS PO Last administered on 06/29/21at 08:09; Start 06/25/21 at 17:00 Fish Oil (Fish Oil) 1,000 mg DAILY PO Last administered on 06/29/21at 08:08; Start 06/26/21 at 09:00 Pantoprazole Sodium (Protonix) 40 mg DAILYAC PO Last administered on 06/30/21at 06:23; Start 06/26/21 at 07:30 Sucralfate (Carafate) 1 gm QIDACHS PO Last administered on 06/30/21at 06:23; Start 06/25/21 at 16:30 Multivitamins (Thera M Plus) 1 tab DAILY PO Last administered on 06/29/21at 08:08; Start 06/26/21 at 09:00 Lidocaine HCl (Lidocaine 1% 20ml Vial) 20 ml 1X ONCE INJ Last administered on 06/26/21at 11:45; Start 06/26/21 at 10:15; Stop 06/26/21 at 10:16; Status DC Prednisone (Prednisone) 15 mg DAILY PO ; Start 06/28/21 at 16:00 Sodium Chloride 1,000 ml @ 75 mls/hr [id number] IV Last administered on 06/30/21at 06:25; Start 06/29/21 at 13:30 Influenza Virus Vaccine Quadrival (Flulaval Quad [id number] Syringe) 0.5 ml ONCE ONCE VAX IM ; Start 06/29/21 at 13:45; Stop 06/29/21 at 13:46; Status DC Active Scripts Active Acetaminophen-Cod #3 Tablet (Acetaminophen/Codeine Phosphate) 1 Each Tablet 1 Tab PO PRN Q6HRS PRN 3 Days Reported Fish Oil 1,000 Mg Softgel ([place]-3 Fatty Acids/Fish Oil) 1 Each Capsule 2 Cap PO DAILY 30 Days Multi-Vitamin Daily (Multivitamin) 1 Each Tablet 1 Tab PO DAILY 30 Days Calcium (Calcium Carbonate) 500 Mg Tablet 2 Tab PO DAILY 30 Days Tylenol (Acetaminophen) 325 Mg Tablet 650 Mg PO Q6HRS PRN Ferrous Sulfate 325 Mg Tablet 1 Tab PO BID Pantoprazole Sodium (Pantoprazole Sodium) 40 Mg Tablet.dr 40 Mg PO DAILYAC Carafate (Sucralfate) 1 Gm Tablet 1 Tab PO QID 30 Days Vitals/I & O Vital Sign - Last 24 Hours 06/29/21 06/29/21 06/29/21 06/29/21 10:58 14:46 19:00 20:00 Temp 97.6 98.1 97.7 97.6 98.1 97.7 Pulse 93 82 77 Resp 18 18 17 B/P (MAP) 108/69 (82) 116/59 (78) 101/58 (72) Pulse Ox 96 95 98 O2 Delivery Room Air Room Air Room Air Room Air 06/29/21 06/30/21 06/30/21 22:45 02:52 07:15 Temp 97.8 97.9 97.7 97.8 97.9 97.7 Pulse 78 90 79 Resp 17 18 18 B/P (MAP) 107/56 (73) 119/59 (79) 110/61 (77) Pulse Ox 97 98 97 O2 Delivery Room Air Room Air Room Air Intake and Output 06/29/21 06/29/21 06/30/21 15:00 23:00 07:00 Intake Total 300 ml 120 ml Output Total 875 ml 400 ml Balance -575 ml -280 ml Justicifation of Admission Dx: Justifications for Admission: Justification of Admission Dx: Yes LAURA HUERTA MD Jun 30, 2021 08:44
[2021-06-30] MEDS: predniSONE 5 MG TABLET PO SCH (09:00)
[2021-06-30] MEDS: FERROUS SULFATE 325 MG TABLET. PO SCH ×2 (09:12→17:14)
[2021-06-30] MEDS: CALCIUM CARBONATE 500 MG TABLET PO SCH (09:12)
[2021-06-30] MEDS: MULTIVITAMIN with MINERAL TABLET. PO SCH (09:12)
[2021-06-30] MEDS: SENNOSIDES/DOCUSATE 8.6/50MG TABLET. PO SCH ×2 (09:13→21:25)
[2021-06-30] MEDS: OMEGA-3 FATTY ACIDS/FISH OIL 1,000 MG CAPSULE. PO SCH (09:13)
[2021-06-30] MEDS ORDERED: IOHEXOL 300 MG/ML 100ML VIAL. IV ONE (10:00)
[2021-06-30] MEDS ORDERED: CONTRAST GIVEN. MC PRN (10:00)
[2021-06-30] MEDS ORDERED: IOHEXOL 240 MG/ML 50ML VIAL. PO ONE (10:00)
[2021-06-30 10:17] LABS: KAPPA FREE 48.2 mg/L (3.3-19.4); LAMBDA FREE 43.8 mg/L (5.7-26.3)
[2021-06-30] MEDS: IMMUNE GLOBULIN,GAMMA(IGG) 10% 200 ML IV SCH (12:24)
--- NOTE | 2021-06-30 12:35 | RAD ---
CT of the chest, abdomen, and pelvis with contrast 06/30/2021 INDICATION: Inflammatory neuropathy. Elevated CRP. Evaluate for neoplasm. COMPARISON STUDY: CT of the abdomen and pelvis with contrast June 24, 2021. TECHNIQUE: Multidetector CT imaging of the chest, abdomen, and pelvis was obtained following the admi nistration of IV contrast. FINDINGS: Heart size is normal. No pericardial effusion is identified. Scattered small mediastinal and hilar ly mph nodes are noted without evidence of pathologically enlarged mediastinal adenopathy. There is no p neumothorax, or pleural effusion. No focal consolidative infiltrate is identified. No pulmonary nodul es or masses are identified. Severe deformity of the left shoulder secondary to chronic appearing fra cture noted.. 2.4 cm hypodense lesion anterior liver, unchanged. Small, 6 mm lesion in the right liver along the pe lvis from ligament is unchanged. Liver is otherwise unremarkable. Gallbladder is unremarkable. Spleen is unremarkable. The adrenal glands are unremarkable. Multi lobulated appearance of the left kidney with areas of possible cortical scarring noted. The appearance is unchanged. The pancreas is unremark able in appearance. There is no evidence of bowel obstruction. No evidence of acute inflammatory ch vivian involving the bowel is identified. There is a catheter noted within the bladder. Bladder is othe rwise grossly unremarkable. No free fluid or free air seen in the abdomen or pelvis. Mildly prominent lymph nodes are seen extending lateral to the left common iliac artery, and inferior abdominal aorta . Individually these nodes are not pathologically enlarged, but are somewhat prominent in number and conspicuity. The appearance is unchanged with respect to comparison study from 7 days ago. No acute o sseous changes are identified. IMPRESSION: 1. No evidence of acute cardiopulmonary process. 2. No new intradural abnormality or change from prior exam. Mildly prominent lymph nodes along the in ferior abdominal aorta left common iliac artery, are unchanged. These may be reactive. Consider 3-6 m onth follow-up exam to ensure stability/resolution. 3. 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 CT DOSING PQRS STATEMENT: One or more of the following individualized dose reduction techniques were utilized for this examinat ion: 1. Automated exposure control 2. Adjustment of the mA and/or kV according to patient size 3. Use of iterative reconstruction technique Electronically signed by: Alvaro Ramirez MD (06/30/2021 12:32 PM) [id number]
--- NOTE | 2021-06-30 13:28 | PDOC2 ---
CONSULT Date of Consult Date of Consult DATE: 06/30/21 TIME: 13:14 Reason for Consult Reason for Consult: Anemia Referring Physician Referring Physician: Dr. Benavides Identification/Chief Complaint Chief Complaint Weakness Source Source: Chart review, Patient History of Present Illness Reason for Visit: Martha Mari is a 70-year-old female who has been admitted to the hospital after presenting with a 3-month history of generalized weakness. Patient reports progressive difficulty with ambulation. She reports associated weight loss. She visited her primary care physician for further evaluation of the symptoms and after additional lab evaluation, she was found to have iron deficiency anemia. She reports having had an EGD which showed gastric ulcers. She was subsequently started on iron as well as Carafate. She reports having had continued weakness which has progressed. She received further imaging with CT head as well as CT abdomen and pelvis. CT head showed chronic microvascular disease changes. CT of the abdomen and pelvis showed mildly enlarged r etroperitoneal lymph nodes and hepatic cyst but no other abnormalities. She also received a brain MRI which showed nonspecific foci of signal change within the left greater than right centrum semiovale, typically noted due to chronic small vessel disease in patients of this age. However, given the lesion configuration and configuration, the possibility of foci of chronic demyelina tion is not excluded. She received a lumbar puncture for further evaluation for demyelinating disorders. Dr. 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 Additional work-up is pending at this time. Heme-onc consultation has been sought for further evaluation of anemia and consider possibility of paraneoplastic syndrome contributing to her current presentation. Review of her prior available CBC shows hemoglobin of 11.4 and platelet count of 449 on 04/21/2021. Hemoglobin has decreased to 8.[address] atelets have remained elevated. Past Medical History GI: Peptic Ulcer disease, Other (Rectal prolapse) Heme/Onc: Anemia NOS Musculoskeletal: Osteoarthritis Past Surgical History Past Surgical History: Other (Left shoulder) Current Problem List Problem List Problems Medical Problems: (1) Generalized weakness Status: Acute (2) Liver cyst Status: Acute Current Medications Current Medications Current Medications Iohexol (Omnipaque 300 Mg/ml) 75 ml 1X ONCE IV Last administered on 06/24/21at 17:39; Start 06/24/21 at 17:30; Stop 06/24/21 at 17:31; Status DC Info (CONTRAST GIVEN -- Rx MONITORING) 1 each PRN DAILY PRN MC SEE COMMENTS; Start 06/24/21 at 17:30; Stop 06/26/21 at 17:29; Status DC Potassium Chloride (Klor-Con) 40 meq 1X ONCE PO Last administered on 06/24/21at 21:19; Start 06/24/21 at 18:15; Stop 06/24/21 at 18:16; Status DC Ondansetron HCl (Zofran) 4 mg PRN Q6HRS PRN IVP NAUSEA/VOMITING Last administered on 06/29/21at 17:12; Start 06/24/21 at 18:45 Calcium Carbonate/ Glycine (Tums) 500 mg PRN Q3HRS PRN PO UPSET STOMACH; Start 06/24/21 at 18:45 Info (Non-Icu Electrolyte Protocol) 1 ea PRN DAILY PRN MC SEE COMMENTS; Start 06/24/21 at 18:45 Oxycodone/ Acetaminophen (Percocet 5/325) 1 tab PRN Q4HRS PRN PO MILD PAIN, 1ST CHOICE; Start 06/24/21 at 18:45 Oxycodone/ Acetaminophen (Percocet 5/325) 2 tab PRN Q4HRS PRN PO MODERATE PAIN, SEVERE PAIN; Start 06/24/21 at 18:45 Acetaminophen (Tylenol) 650 mg PRN Q6HRS PRN PO Headaches, Temp > 101.5F; Star t 06/24/21 at 18:45; Stop 06/25/21 at 16:06; Status DC Senna/Docusate Sodium (Senna Plus) 1 tab BID PO Last administered on 06/30/21at 09:13; Start 06/24/21 at 21:00 Heparin Sodium (Porcine) (Heparin Sodium) 5,000 unit Q12HR SQ Last administered on 06/25/21at 21:02; Start 06/24/21 at 21:00; Stop 06/26/21 at 08:37; Status DC Pantoprazole Sodium (Protonix) 40 mg DAILYAC PO Last administered on 06/25/21at 06:21; Start 06/24/21 at 20:30; Stop 06/25/21 at 16:06; Status DC Sucralfate (Carafate) 1 gm DAILY PO Last administered on 06/25/21at 09:25; Start 06/25/21 at 09:00; Stop 06/25/21 at 16:05; Status DC Influenza Virus Vaccine Quadrival (Flulaval Quad [id number] Syringe) 0.5 ml ONCE ONCE VAX IM ; Start 06/25/21 at 09:00; Stop 06/25/21 at 09:01; Status DC Bethanechol Chloride (Urecholine) 10 mg TIDAC PO Last administered on 06/30/21at 12:26; Start 06/25/21 at 16:30 Acetaminophen (Tylenol) 650 mg PRN Q6HRS PRN PO MILD PAIN 1-3 Last administered on 06/28/21at 04:26; Start 06/25/21 at 16:15 Acetaminophen/ Codeine Phosphate (Tylenol #3) 1 tab PRN Q6HRS PRN PO MODERATE PAIN, 2ND CHOICE; Start 06/25/21 at 16:15 Calcium Carbonate/ Glycine (Oscal) 1,000 mg DAILY PO Last administered on 06/30/21at 09:12; Start 06/26/21 at 09:00 Ferrous Sulfate (Feosol) 325 mg BIDWMEALS PO Last administered on 06/30/21at 09:12; Start 06/25/21 at 17:00 Fish Oil (Fish Oil) 1,000 mg DAILY PO Last administered on 06/30/21at 09:13; Start 06/26/21 at 09:00 Pantoprazole Sodium (Protonix) 40 mg DAILYAC PO Last administered on 06/30/21at 06:23; Start 06/26/21 at 07:30 Sucralfate (Carafate) 1 gm QIDACHS PO Last administered on 06/30/21at 06:23; Start 06/25/21 at 16:30 Multivitamins (Thera M Plus) 1 tab DAILY PO Last administered on 06/30/21at 09:12; Start 06/26/21 at 09:00 Lidocaine HCl (Lidocaine 1% 20ml Vial) 20 ml 1X ONCE INJ Last administered on 06/26/21at 11:45; Start 06/26/21 at 10:15; Stop 06/26/21 at 10:16; Status DC Prednisone (Prednisone) 15 mg DAILY PO ; Start 06/28/21 at 16:00 Sodium Chloride 1,000 ml @ 75 mls/hr [id number] IV Last administered on 06/30/21at 06:25; Start 06/29/21 at 13:30 Influenza Virus Vaccine Quadrival (Flulaval Quad [id number] Syringe) 0.5 ml ONCE ONCE VAX IM ; Start 06/29/21 at 13:45; Stop 06/29/21 at 13:46; Status DC Immune Globulin 200 ml @ 0 mls/hr DAILY IV Last administered on 06/30/21at 12:24; Start 06/30/21 at 09:00; Stop 07/05/21 at 08:59 Iohexol (Omnipaque 240 Mg/ml) 50 ml 1X ONCE PO Last administered on 06/30/21at 10:00; Start 06/30/21 at 10:00; Stop 06/30/21 at 10:01; Status DC Iohexol (Omnipaque 300 Mg/ml) 75 ml 1X ONCE IV Last administered on 06/30/21at 10:00; Start 06/30/21 at 10:00; Stop 06/30/21 at 10:01; Status DC Info (CONTRAST GIVEN -- Rx MONITORING) 1 each PRN DAILY PRN MC SEE COMMENTS; Start 06/30/21 at 10:00; Stop 07/02/21 at 09:59 Active Scripts Active Acetaminophen-Cod #3 Tablet (Acetaminophen/Codeine Phosphate) 1 Each Tablet 1 Tab PO PRN Q6HRS PRN 3 Days Reported Fish Oil 1,000 Mg Softgel (Gibbon-3 Fatty Acids/Fish Oil) 1 Each Capsule 2 Cap PO DAILY 30 Days Multi-Vitamin Daily (Multivitamin) 1 Each Tablet 1 Tab PO DAILY 30 Days Calcium (Calcium Carbonate) 500 Mg Tablet 2 Tab PO DAILY 30 Days Tylenol (Acetaminophen) 325 Mg Tablet 650 Mg PO Q6HRS PRN Ferrous Sulfate 325 Mg Tablet 1 Tab PO BID Pantoprazole Sodium (Pantoprazole Sodium) 40 Mg Tablet.dr 40 Mg PO DAILYAC Carafate (Sucralfate) 1 Gm Tablet 1 Tab PO QID 30 Days Allergies Allergies: Coded Allergies: Dauphin And Derivatives (Verified Allergy, Intermediate, 06/25/21) amoxicillin (Verified Allergy, Intermediate, 06/25/21) aspirin (Verified Allergy, Intermediate, 06/25/21) cauliflower (Verified Allergy, Intermediate, 06/25/21) clavulanic acid (Verified Allergy, Intermediate, 06/25/21) cortisone (Verified Allergy, Intermediate, 06/25/21) ibuprofen (Verified Allergy, Intermediate, 06/25/21) prednisone (Verified Allergy, Intermediate, 06/25/21) ROS Review of System Negative unless stated otherwise in HPI Physical Exam Physical Exam General: Awake, alert, no distress Head: Atraumatic, no conjunctival icterus, normal oral cavity mucosa Neck: Supple, no lymphadenopathy Chest: No trauma noted Cardiovascular: Regular rhythm, normal rate, no murmurs Respiratory: Bilateral air entry noted, lungs clear to auscultation bilaterally. No accessory muscle use Abdominal: Abdomen is soft, nontender, nondistended. Bowel sounds were normal. No hepatomegaly or splenomegaly Musculoskeletal: No deformity noted Extremities: No edema noted Skin: No rash or lesions Neurologic: Alert and oriented x3, no grossly evident neurologic deficits noted. Full neurological exam was not performed Psychiatric: Appropriate mood and affect Vitals VITALS Vital Signs Date Time Temp Pulse Resp B/P (MAP) Pulse Ox O2 Delivery O2 Flow Rate FiO2 06/30/21 12:49 83 18 106/68 (81) 96 Room Air 06/30/21 11:12 98.4 98.4 Labs Labs Laboratory Tests Test 06/29/21 09:15 Red Blood Count 4.55 x10^6/uL (3.50-5.70) Absolute Reticulocyte Count 0.096 x10^6/uL (0.020-0.120) Percent Reticulocyte Count 2.1 % (0.5-2.3) Immature Reticulocyte Fraction 0.47 (0.20-0.60) Erythropoietin 32.5 mIU/mL (2.6-18.5) Immunoglobulin Sciota/Lambda Ratio 1.10 (0.26-1.65) Free Sciota Light Chains 48.2 mg/L (3.3-19.4) Free Lambda Light Chains 43.8 mg/L (5.7-26.3) Assessment/Plan Assessment/Plan Assessment: Microcytic anemia Generalized weakness, secondary to demyelinating disorder Thrombocytosis Recommendations: -I recommended and requested iron studies, B12, folate, SPEP, free light chains and erythropoietin level. Reviewed these results today. These are consistent with anemia of chronic disease -Suspect that thrombocytosis is reactive secondary to in her chronic inflammation. Can consider testing for essential thrombocytosis based on results of autoimmune work-up -Follow-up neurology recommendations -Recommend requesting records from GI regarding recent EGD/colonoscopy report -Noted no evidence of malignancy on recent CT CAP Tony Jewell MD Medical Oncology/Hematology Ph: [phone] ARNULFO JEWELL MD Jun 30, 2021 13:28
[2021-06-30 13:29] LABS: ALBUM 2.6 g/dL (2.9-4.4); ALPHA 1 0.5 g/dL (0.0-0.4); BETA 1.1 g/dL (0.7-1.3); GAMMA 1.5 g/dL (0.4-1.8); PROTEIN TOTAL 6.7 g/dL (6.0-8.5); SPEP AG RATIO 0.6 (0.7-1.7)
--- NOTE | 2021-06-30 13:37 | PDOC ---
[employer] PROGRESS NOTE Date of Service DOS: DATE: 06/30/21 TIME: 13:09 Chief Complaint Chief Complaint Progressive Weakness - possibly AMSAN per neurology assessment Overactive bladder FTT (failure to thrive) in adult Liver cyst Gastric ulcer FEN - General diet FULL CODE Dispo - inpatient, will most definitely need acute rehab or SNF when discharge planning should begin which could happen as soon as 07/04/2021 History of Present Illness History of Present Illness Patient is a 70-year-old female presented to the emergency room today due to 3- month history of weakness. Patient says that things started late January early March 2021. She noticed she was feeling weaker than usual as she had been previously walking at least a mile a day and started struggling to do that. She also noticed food was not tasting very good so she decreased appetite. Says she has lost about 20 to 25 pounds over the course of the summer. Went to her primary care physician who noticed on lab work she was anemic and was iron deficient. Is secondary to a GI doctor to evaluate for any bleeding. She had an EGD performed by Dr. Gambino who found gastritis along with gastric ulcers. Says she was placed on sucralfate after this. Does report she had been having some diarrhea prior to being placed on sucralfate and it has helps this. Says she was placed on iron as well by her primary care physician. She was supposed to have an EUS at [facility] for pancreatic and hepatic cysts as well. Also saw a physical therapist 1 time who recommended she use a walker and says she has been walking "funny" ever since. 06/26: Patient came back from lumbar puncture procedure awake and alert. NAD. Patient is talkative. Patient is on room air. Patient complains of fatigue which progressed 06/27: CRP 111. Chart Reviewed. Pt was seen and examined. Discussed with RN. Pt is talkative about her hx. 06/28: Patient seen and examined. Feeling more weak, having nausea and vomiting and 2 episodes of fecal incontinence 06/29: Afebrile. Feeling more weak. She says after speaking with her sister she does not want to take prednisone today. EMGs with neurology today showed axonal slowing in sensory and motor distribution. Afebrile. Starting IViG per neurology today for presumptive AMSAN after elevated IgG synthesis rate was found in CSF. She is feeling weak, but in better spirits today. She is very appreciative of Dr. Carmona discussing with her niece her presumptive diagnosis over the phone. Vitals/I&O Vitals/I&O: Vital Signs Date Time Temp Pulse Resp B/P (MAP) Pulse Ox O2 Delivery O2 Flow Rate FiO2 06/30/21 12:49 83 18 106/68 (81) 96 Room Air 06/30/21 11:12 98.4 98.4 I & O 06/29/21 06/29/21 06/30/21 15:00 23:00 07:00 Intake Total 300 ml 120 ml Output Total 875 ml 400 ml Balance -575 ml -280 ml Physical Exam Physical Exam: Rice Catheter bag on bedside, straw colored, small volume Alert and talkative Neuro: 4/5 strength to L dorsiflexion/plantar flexion 4/5 strength to L knee extension 3/5 strength to R dorsiflexion/plantar flexion 3/5 strength to R knee extension 3/5 crane helper strength BL Appreciable fatigue with repetition of elbow flexion BL Cutaneous innervation intact to L4-S1 dermatomes BL with no obvious detriments 1+ Achilles DTR BL No obvious loss of tone General: Alert, Oriented X3, Cooperative, No acute distress Heart: Regular rate, Normal S1, Normal S2 Lungs: Clear Abdomen: Soft, No tenderness, No hepatosplenomegaly Extremities: No clubbing, No cyanosis, No edema, No tenderness/swelling Skin: No rashes, No significant lesion Assessment and Plan Assessmemt and Plan Problems Medical Problems: (1) Generalized weakness Status: Acute (2) Liver cyst Status: Acute Comment Review of Relevant I have reviewed the following items genesis (where applicable) has been applied. Medications: Current Medications Medications (Trade) Dose Ordered Sig/Morenita Route PRN Reason Start Time Stop Time Status Last Admin Dose Admin Sodium Chloride 1,000 ml @ 75 mls/hr [id number] IV 06/29/21 13:30 06/30/21 06:25 Immune Globulin 200 ml @ 0 mls/hr DAILY IV 06/30/21 09:00 07/05/21 08:59 06/30/21 12:24 Iohexol (Omnipaque 240 Mg/ml) 50 ml 1X ONCE PO 06/30/21 10:00 06/30/21 10:01 DC 06/30/21 10:00 Iohexol (Omnipaque 300 Mg/ml) 75 ml 1X ONCE IV 06/30/21 10:00 06/30/21 10:01 DC 06/30/21 10:00 Justifications for Admission Other Justification RAMILA VICENTE MD Jun 30, 2021 13:37
[2021-07-01 03:14] VITALS: BP 132/70
[2021-07-01] MEDS: IV NORMAL SALINE 1000ML BAG 1,000 ML IV SCH ×2 (06:08→20:47)
[2021-07-01 07:00] VITALS: BP 101/61
--- NOTE | 2021-07-01 08:53 | PDOC ---
[employer] PROGRESS NOTE Date of Service DOS: DATE: 07/01/21 TIME: 08:50 Chief Complaint Chief Complaint Progressive Weakness - possibly AMSAN per neurology assessment Overactive bladder FTT (failure to thrive) in adult Liver cyst Gastric ulcer LE tingling - axonal neuropathy. Neurology has offered low dose gabapentin Loss of appetite - still low, offered stimulant, she is thinking about it. FEN - General diet FULL CODE Dispo - inpatient, will most definitely need acute rehab or SNF when discharge planning should begin which could happen as soon as 07/04/2021 History of Present Illness History of Present Illness Patient is a 70-year-old female presented to the emergency room today due to 3- month history of weakness. Patient says that things started late January early March 2021. She noticed she was feeling weaker than usual as she had been previously walking at least a mile a day and started struggling to do that. She also noticed food was not tasting very good so she decreased appetite. Says she has lost about 20 to 25 pounds over the course of the summer. Went to her primary care physician who noticed on lab work she was anemic and was iron deficient. Is secondary to a GI doctor to evaluate for any bleeding. She had an EGD performed by Dr. Gambino who found gastritis along with gastric ulcers. Says she was placed on sucralfate after this. Does report she had been having some diarrhea prior to being placed on sucralfate and it has helps this. Says she was placed on iron as well by her primary care physician. She was supposed to have an EUS at [facility] for pancreatic and hepatic cysts as well. Also saw a physical therapist 1 time who recommended she use a walker and says she has been walking "funny" ever since. 06/26: Patient came back from lumbar puncture procedure awake and alert. NAD. Patient is talkative. Patient is on room air. Patient complains of fatigue which progressed 06/27: CRP 111. Chart Reviewed. Pt was seen and examined. Discussed with RN. Pt is talkative about her hx. 06/28: Patient seen and examined. Feeling more weak, having nausea and vomiting and 2 episodes of fecal incontinence 06/29: Afebrile. Feeling more weak. She says after speaking with her sister she does not want to take prednisone today. EMGs with neurology today showed axonal slowing in sensory and motor distribution. 06/30: Afebrile. Starting IViG per neurology today for presumptive AMSAN after elevated IgG synthesis rate was found in CSF. Feeling weak, in better spirits. Appreciative of Dr. Carmona discussing with her niece Afebrile. Improvement of weakness. Complaining of tingling. Pain and spasming of her legs overnight after floating her heels. She still does not have appetite and is forcing herself to eat. No pain. No CP or SOB. Has itching but notes this has been going on since December. Tolerated IVIG well. Vitals/I&O Vitals/I&O: Vital Signs Date Time Temp Pulse Resp B/P (MAP) Pulse Ox O2 Delivery O2 Flow Rate FiO2 07/01/21 07:00 98.0 85 20 101/61 (74) 96 Room Air 98.0 I & O 06/30/21 06/30/21 07/01/21 15:00 23:00 07:00 Intake Total 520 ml 360 ml Output Total 1400 ml 1150 ml 1050 ml Balance -880 ml -790 ml -1050 ml Physical Exam Physical Exam: Rice Catheter bag on bedside, straw colored, small volume Alert and talkative Neuro: 4/5 strength to L dorsiflexion/plantar flexion 4/5 strength to L knee extension 3/5 strength to R dorsiflexion/plantar flexion 3/5 strength to R knee extension 3/5 count team clerk strength BL Appreciable fatigue with repetition of elbow flexion BL Cutaneous innervation intact to L4-S1 dermatomes BL with no obvious detriments 1+ Achilles DTR BL No obvious loss of tone General: Alert, Oriented X3, Cooperative, No acute distress Heart: Regular rate, Normal S1, Normal S2 Lungs: Clear Abdomen: Soft, No tenderness, No hepatosplenomegaly Extremities: No clubbing, No cyanosis, No edema, No tenderness/swelling Skin: No rashes, No significant lesion Labs Labs: Laboratory Tests Test 07/01/21 07:55 Ferritin 489 ng/mL (8-252) Assessment and Plan Assessmemt and Plan Problems Medical Problems: (1) Generalized weakness Status: Acute (2) Liver cyst Status: Acute Comment Review of Relevant I have reviewed the following items genesis (where applicable) has been applied. Medications: Current Medications Medications (Trade) Dose Ordered Sig/Morenita Route PRN Reason Start Time Stop Time Status Last Admin Dose Admin Immune Globulin 200 ml @ 0 mls/hr DAILY IV 06/30/21 09:00 07/05/21 08:59 06/30/21 12:24 Iohexol (Omnipaque 240 Mg/ml) 50 ml 1X ONCE PO 06/30/21 10:00 06/30/21 10:01 DC 06/30/21 10:00 Iohexol (Omnipaque 300 Mg/ml) 75 ml 1X ONCE IV 06/30/21 10:00 06/30/21 10:01 DC 06/30/21 10:00 Justifications for Admission Other Justification RAMILA VICENTE MD Jul 01, 2021 08:53
[2021-07-01 09:07] LABS: BASO # 0.1 x10^3/uL (0.0-0.2); BASO % 1 % (0-3); EOS # 0.3 x10^3/uL (0.0-0.7); EOS % 4 % (0-3); HEMATOCRIT 28.9 % (36.0-47.0); HEMOGLOBIN 9.2 g/dL (12.0-15.5); LYMPH # 1.3 x10^3/uL (1.0-4.8); LYMPH % 19 % (24-48); MEAN CORPUSCULAR HEMOGLOBIN 23 pg (25-35); MEAN CORPUSCULAR HGB CONC 32 g/dL (31-37); MEAN CORPUSCULAR VOLUME 71 fL (79-100); MONO # 0.3 x10^3/uL (0.0-1.1); MONO % 5 % (0-9); NEUT # 4.9 x10^3/uL (1.8-7.7); NEUT % 71 % (31-73); PLATELET COUNT 490 x10^3/uL (140-400); RED BLOOD COUNT 4.06 x10^6/uL (3.50-5.40); RED CELL DISTRIBUTION WIDTH 17.3 % (11.5-14.5); WHITE BLOOD COUNT 6.9 x10^3/uL (4.0-11.0)
[2021-07-01] MEDS: SENNOSIDES/DOCUSATE 8.6/50MG TABLET. PO SCH ×2 (09:23→20:47)
[2021-07-01] MEDS: MULTIVITAMIN with MINERAL TABLET. PO SCH (09:23)
[2021-07-01] MEDS: SUCRALFATE 1 GM TABLET. PO SCH ×4 (09:23→20:47)
[2021-07-01] MEDS: OMEGA-3 FATTY ACIDS/FISH OIL 1,000 MG CAPSULE. PO SCH (09:23)
[2021-07-01] MEDS: FERROUS SULFATE 325 MG TABLET. PO SCH ×2 (09:23→17:57)
[2021-07-01] MEDS: BETHANECHOL CHLORIDE 10 MG TABLET. PO SCH ×3 (09:24→17:57)
[2021-07-01] MEDS: CALCIUM CARBONATE 500 MG TABLET PO SCH (09:24)
[2021-07-01] MEDS: PANTOPRAZOLE 40 MG TABLET.DR. PO SCH (09:24)
[2021-07-01 09:25] LABS: ALBUMIN 1.9 g/dL (3.4-5.0); ALBUMIN/GLOBULIN RATIO 0.4 (1.0-1.7); CALCIUM 7.9 mg/dL (8.5-10.1); CREATININE 0.8 mg/dL (0.6-1.0); GFR 70.7; POTASSIUM 3.8 mmol/L (3.5-5.1); TOTAL BILIRUBIN 0.2 mg/dL (0.2-1.0)
[2021-07-01] MEDS ORDERED: GABAPENTIN 100 MG CAPSULE. PO PRN (10:30)
--- NOTE | 2021-07-01 10:30 | PDOC ---
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 The elevated sedimentation rate and CRP imply there is some sort of other inflammatory process. Restless legs Mild white matter disease on the brain MRI, mild degenerative cervical spine changes on the cervical MRI CT chest abdomen pelvis negative for neoplasm Plan Day 2 of 5 today, intravenous immunoglobulin, 0.4 g/kg daily for 5 days Gabapentin 100 mg twice daily as needed and 100 mg at bedtime Await rest of tests: ANCA, reticulocytes, light chains, erythropoietin, copper. Note that that I already ordered protein electrophoresis and HARINDER, both of which were negative. Rehabilitation modalities, will need inpatient rehab after IVIG course completed Discussed with Dr. Benavides Subjective Complains of restless leg symptoms and poor appetite, poor sleep Objective Vital Signs Date Time Temp Pulse Resp B/P (MAP) Pulse Ox O2 Delivery O2 Flow Rate FiO2 07/01/21 07:00 98.0 85 20 101/61 (74) 96 Room Air 98.0 Intake and Output 07/01/21 07:00 Intake Total 880 ml Output Total 3600 ml Balance -2720 ml Intake Oral 880 ml Output Urine Total 3600 ml PHYSICAL EXAM Alert. Oriented to time, place and person. PERRL. EOMI. CN: no focal findings. Muscle tone: normal. Muscle strength: 4/5 DTR: 0-1+ Plantar reflex: flexor Gait: not examined in bed. Sensory exam: Slight stocking-glove loss. No cerebellar signs elicited. Review of Relevant I have reviewed the following items gneesis (where applicable) has been applied. Labs Laboratory Tests Test 06/30/21 13:00 07/01/21 07:55 SARS-CoV-2 RNA (MATTHEW) Negative (Negative) White Blood Count 6.9 x10^3/uL (4.0-11.0) Red Blood Count 4.06 x10^6/uL (3.50-5.40) Hemoglobin 9.2 g/dL (12.0-15.5) Hematocrit 28.9 % (36.0-47.0) Mean Corpuscular Volume 71 fL (79-100) Mean Corpuscular Hemoglobin 23 pg (25-35) Mean Corpuscular Hemoglobin Concent 32 g/dL (31-37) Red Cell Distribution Width 17.3 % (11.5-14.5) Platelet Count 490 x10^3/uL (140-400) Neutrophils (%) (Auto) 71 % (31-73) Lymphocytes (%) (Auto) 19 % (24-48) Monocytes (%) (Auto) 5 % (0-9) Eosinophils (%) (Auto) 4 % (0-3) Basophils (%) (Auto) 1 % (0-3) Neutrophils # (Auto) 4.9 x10^3/uL (1.8-7.7) Lymphocytes # (Auto) 1.3 x10^3/uL (1.0-4.8) Monocytes # (Auto) 0.3 x10^3/uL (0.0-1.1) Eosinophils # (Auto) 0.3 x10^3/uL (0.0-0.7) Basophils # (Auto) 0.1 x10^3/uL (0.0-0.2) Sodium Level 137 mmol/L (136-145) Potassium Level 3.8 mmol/L (3.5-5.1) Chloride Level 104 mmol/L (98-107) Carbon Dioxide Level 25 mmol/L (21-32) Anion Gap 8 (6-14) Blood Urea Nitrogen 15 mg/dL (7-20) Creatinine 0.8 mg/dL (0.6-1.0) Estimated GFR (Cockcroft-Gault) 70.7 BUN/Creatinine Ratio 19 (6-20) Glucose Level 89 mg/dL (70-99) Calcium Level 7.9 mg/dL (8.5-10.1) Ferritin 489 ng/mL (8-252) Total Bilirubin 0.2 mg/dL (0.2-1.0) Aspartate Amino Transf (AST/SGOT) 7 U/L (15-37) Alanine Aminotransferase (ALT/SGPT) 16 U/L (14-59) Alkaline Phosphatase 75 U/L (46-116) Total Protein 7.0 g/dL (6.4-8.2) Albumin 1.9 g/dL (3.4-5.0) Albumin/Globulin Ratio 0.4 (1.0-1.7) Laboratory Tests Test 06/30/21 13:00 07/01/21 07:55 SARS-CoV-2 RNA (MATTHEW) Negative (Negative) White Blood Count 6.9 x10^3/uL (4.0-11.0) Red Blood Count 4.06 x10^6/uL (3.50-5.40) Hemoglobin 9.2 g/dL (12.0-15.5) Hematocrit 28.9 % (36.0-47.0) Mean Corpuscular Volume 71 fL (79-100) Mean Corpuscular Hemoglobin 23 pg (25-35) Mean Corpuscular Hemoglobin Concent 32 g/dL (31-37) Red Cell Distribution Width 17.3 % (11.5-14.5) Platelet Count 490 x10^3/uL (140-400) Neutrophils (%) (Auto) 71 % (31-73) Lymphocytes (%) (Auto) 19 % (24-48) Monocytes (%) (Auto) 5 % (0-9) Eosinophils (%) (Auto) 4 % (0-3) Basophils (%) (Auto) 1 % (0-3) Neutrophils # (Auto) 4.9 x10^3/uL (1.8-7.7) Lymphocytes # (Auto) 1.3 x10^3/uL (1.0-4.8) Monocytes # (Auto) 0.3 x10^3/uL (0.0-1.1) Eosinophils # (Auto) 0.3 x10^3/uL (0.0-0.7) Basophils # (Auto) 0.1 x10^3/uL (0.0-0.2) Sodium Level 137 mmol/L (136-145) Potassium Level 3.8 mmol/L (3.5-5.1) Chloride Level 104 mmol/L (98-107) Carbon Dioxide Level 25 mmol/L (21-32) Anion Gap 8 (6-14) Blood Urea Nitrogen 15 mg/dL (7-20) Creatinine 0.8 mg/dL (0.6-1.0) Estimated GFR (Cockcroft-Gault) 70.7 BUN/Creatinine Ratio 19 (6-20) Glucose Level 89 mg/dL (70-99) Calcium Level 7.9 mg/dL (8.5-10.1) Ferritin 489 ng/mL (8-252) Total Bilirubin 0.2 mg/dL (0.2-1.0) Aspartate Amino Transf (AST/SGOT) 7 U/L (15-37) Alanine Aminotransferase (ALT/SGPT) 16 U/L (14-59) Alkaline Phosphatase 75 U/L (46-116) Total Protein 7.0 g/dL (6.4-8.2) Albumin 1.9 g/dL (3.4-5.0) Albumin/Globulin Ratio 0.4 (1.0-1.7) Microbiology 06/26/21 CSF Gram Stain - Final, Complete 06/24/21 Urine Culture - Final, Complete Medications Current Medications Iohexol (Omnipaque 300 Mg/ml) 75 ml 1X ONCE IV Last administered on 06/24/21at 17:39; Start 06/24/21 at 17:30; Stop 06/24/21 at 17:31; Status DC Info (CONTRAST GIVEN -- Rx MONITORING) 1 each PRN DAILY PRN MC SEE COMMENTS; Start 06/24/21 at 17:30; Stop 06/26/21 at 17:29; Status DC Potassium Chloride (Klor-Con) 40 meq 1X ONCE PO Last administered on 06/24/21at 21:19; Start 06/24/21 at 18:15; Stop 06/24/21 at 18:16; Status DC Ondansetron HCl (Zofran) 4 mg PRN Q6HRS PRN IVP NAUSEA/VOMITING Last administered on 06/29/21at 17:12; Start 06/24/21 at 18:45 Calcium Carbonate/ Glycine (Tums) 500 mg PRN Q3HRS PRN PO UPSET STOMACH; Start 06/24/21 at 18:45 Info (Non-Icu Electrolyte Protocol) 1 ea PRN DAILY PRN MC SEE COMMENTS; Start 06/24/21 at 18:45 Oxycodone/ Acetaminophen (Percocet 5/325) 1 tab PRN Q4HRS PRN PO MILD PAIN, 1ST CHOICE; Start 06/24/21 at 18:45 Oxycodone/ Acetaminophen (Percocet 5/325) 2 tab PRN Q4HRS PRN PO MODERATE PAIN, SEVERE PAIN; Start 06/24/21 at 18:45 Acetaminophen (Tylenol) 650 mg PRN Q6HRS PRN PO Headaches, Temp > 101.5F; Start 06/24/21 at 18:45; Stop 06/25/21 at 16:06; Status DC Senna/Docusate Sodium (Senna Plus) 1 tab BID PO Last administered on 07/01/21at 09:23; Start 06/24/21 at 21:00 Heparin Sodium (Porcine) (Heparin Sodium) 5,000 unit Q12HR SQ Last administered on 06/25/21at 21:02; Start 06/24/21 at 21:00; Stop 06/26/21 at 08:37; Status DC Pantoprazole Sodium (Protonix) 40 mg DAILYAC PO Last administered on 06/25/21at 06:21; Start 06/24/21 at 20:30; Stop 06/25/21 at 16:06; Status DC Sucralfate (Carafate) 1 gm DAILY PO Last administered on 06/25/21at 09:25; Start 06/25/21 at 09:00; Stop 06/25/21 at 16:05; Status DC Influenza Virus Vaccine Quadrival (Flulaval Quad [id number] Syringe) 0.5 ml ONCE ONCE VAX IM ; Start 06/25/21 at 09:00; Stop 06/25/21 at 09:01; Status DC Bethanechol Chloride (Urecholine) 10 mg TIDAC PO Last administered on 07/01/21at 09:24; Start 06/25/21 at 16:30 Acetaminophen (Tylenol) 650 mg PRN Q6HRS PRN PO MILD PAIN 1-3 Last administered on 06/28/21at 04:26; Start 06/25/21 at 16:15 Acetaminophen/ Codeine Phosphate (Tylenol #3) 1 tab PRN Q6HRS PRN PO MODERATE PAIN, 2ND CHOICE; Start 06/25/21 at 16:15 Calcium Carbonate/ Glycine (Oscal) 1,000 mg DAILY PO Last administered on 07/01/21at 09:24; Start 06/26/21 at 09:00 Ferrous Sulfate (Feosol) 325 mg BIDWMEALS PO Last administered on 07/01/21at 09:23; Start 06/25/21 at 17:00 Fish Oil (Fish Oil) 1,000 mg DAILY PO Last administered on 07/01/21at 09:23; Start 06/26/21 at 09:00 Pantoprazole Sodium (Protonix) 40 mg DAILYAC PO Last administered on 07/01/21at 09:24; Start 06/26/21 at 07:30 Sucralfate (Carafate) 1 gm QIDACHS PO Last administered on 07/01/21at 09:23; Start 06/25/21 at 16:30 Multivitamins (Thera M Plus) 1 tab DAILY PO Last administered on 07/01/21at 09:23; Start 06/26/21 at 09:00 Lidocaine HCl (Lidocaine 1% 20ml Vial) 20 ml 1X ONCE INJ Last administered on 06/26/21at 11:45; Start 06/26/21 at 10:15; Stop 06/26/21 at 10:16; Status DC Prednisone (Prednisone) 15 mg DAILY PO ; Start 06/28/21 at 16:00; Stop 07/01/21 at 08:27; Status DC Sodium Chloride 1,000 ml @ 75 mls/hr [id number] IV Last administered on 07/01/21at 06:08; Start 06/29/21 at 13:30 Influenza Virus Vaccine Quadrival (Flulaval Quad [id number] Syringe) 0.5 ml ONCE ONCE VAX IM ; Start 06/29/21 at 13:45; Stop 06/29/21 at 13:46; Status DC Immune Globulin 200 ml @ 0 mls/hr DAILY IV Last administered on 06/30/21at 12:24; Start 06/30/21 at 09:00; Stop 07/05/21 at 08:59 Iohexol (Omnipaque 240 Mg/ml) 50 ml 1X ONCE PO Last administered on 06/30/21at 10:00; Start 06/30/21 at 10:00; Stop 06/30/21 at 10:01; Status DC Iohexol (Omnipaque 300 Mg/ml) 75 ml 1X ONCE IV Last administered on 06/30/21at 10:00; Start 06/30/21 at 10:00; Stop 06/30/21 at 10:01; Status DC Info (CONTRAST GIVEN -- Rx MONITORING) 1 each PRN DAILY PRN MC SEE COMMENTS; Start 06/30/21 at 10:00; Stop 07/02/21 at 09:59 Active Scripts Active Acetaminophen-Cod #3 Tablet (Acetaminophen/Codeine Phosphate) 1 Each Tablet 1 Tab PO PRN Q6HRS PRN 3 Days Reported Fish Oil 1,000 Mg Softgel (Garland-3 Fatty Acids/Fish Oil) 1 Each Capsule 2 Cap PO DAILY 30 Days Multi-Vitamin Daily (Multivitamin) 1 Each Tablet 1 Tab PO DAILY 30 Days Calcium (Calcium Carbonate) 500 Mg Tablet 2 Tab PO DAILY 30 Days Tylenol (Acetaminophen) 325 Mg Tablet 650 Mg PO Q6HRS PRN Ferrous Sulfate 325 Mg Tablet 1 Tab PO BID Pantoprazole Sodium (Pantoprazole Sodium) 40 Mg Tablet.dr 40 Mg PO DAILYAC Carafate (Sucralfate) 1 Gm Tablet 1 Tab PO QID 30 Days Vitals/I & O Vital Sign - Last 24 Hours 06/30/21 06/30/21 06/30/21 06/30/21 11:12 12:36 12:49 14:51 Temp 98.4 98.2 98.4 98.2 Pulse 85 83 83 77 Resp 20 20 18 20 B/P (MAP) 116/61 (79) 111/55 (73) 106/68 (81) 100/48 (65) Pulse Ox 98 96 96 95 O2 Delivery Room Air Room Air Room Air Room Air 06/30/21 06/30/21 06/30/21 07/01/21 19:00 20:00 23:00 03:14 Temp 97.9 98.4 97.9 97.9 98.4 97.9 Pulse 89 86 80 Resp 20 20 18 B/P (MAP) 106/51 (69) 111/63 (79) 132/70 (90) Pulse Ox 97 96 96 O2 Delivery Room Air Room Air Room Air Room Air 07/01/21 07:00 Temp 98.0 98.0 Pulse 85 Resp 20 B/P (MAP) 101/61 (74) Pulse Ox 96 O2 Delivery Room Air Intake and Output 06/30/21 06/30/21 07/01/21 15:00 23:00 07:00 Intake Total 520 ml 360 ml Output Total 1400 ml 1150 ml 1050 ml Balance -880 ml -790 ml -[address] of the chest, abdomen, and pelvis with contrast 06/30/2021 INDICATION: Inflammatory neuropathy. Elevated CRP. Evaluate for neoplasm. COMPARISON STUDY: CT of the abdomen and pelvis with contrast June 24, 2021. TECHNIQUE: Multidetector CT imaging of the chest, abdomen, and pelvis was obtained following the administration of IV contrast. FINDINGS: Heart size is normal. No pericardial effusion is identified. Scattered small mediastinal and hilar lymph nodes are noted without evidence of pathologically enlarged mediastinal adenopathy. There is no pneumothorax, or pleural effusion. No focal consolidative infiltrate is identified. No pulmonary nodules or masses are identified. Severe deformity of the left shoulder secondary to chronic appearing fracture noted.. 2.4 cm hypodense lesion anterior liver, unchanged. Small, 6 mm lesion in the right liver along the pelvis from ligament is unchanged. Liver is otherwise unremarkable. Gallbladder is unremarkable. Spleen is unremarkable. The adrenal glands are unremarkable. Multi lobulated appearance of the left kidney with areas of possible cortical scarring noted. The appearance is unchanged. The pancreas is unremarkable in appearance. There is no evidence of bowel obstruction. No evidence of acute inflammatory change involving the bowel is id entified. There is a catheter noted within the bladder. Bladder is otherwise grossly unremarkable. No free fluid or free air seen in the abdomen or pelvis. Mildly prominent lymph nodes are seen extending lateral to the left common iliac artery, and inferior abdominal aorta. Individually these nodes are not pathologically enlarged, but are somewhat prominent in number and conspicuity. The appearance is unchanged with respect to comparison study from 7 days ago. No acute osseous changes are identified. IMPRESSION: 1. No evidence of acute cardiopulmonary process. 2. No new intradural abnormality or change from prior exam. Mildly prominent lymph nodes along the inferior abdominal aorta left common iliac artery, are unchanged. These may be reactive. Consider 3-6 month follow-up exam to ensure stability/resolution. 3. Low-density lesion in the inferior right liver, along the falciform ligament likely represents hepatic cysts. Justicifation of Admission Dx: Justifications for Admission: Justification of Admission Dx: Yes LAURA HUERTA MD Jul 01, 2021 10:30
[2021-07-01 11:00] VITALS: BP 109/58
[2021-07-01] MEDS: IMMUNE GLOBULIN,GAMMA(IGG) 10% 200 ML IV SCH (12:12)
--- NOTE | 2021-07-01 13:27 | NUR ---
SW following. Discussed with RN, updates faxed to [facility], can submit for auth tomorrow per Dr. Benavides as pt will be ready over the weekend. SW will continue to follow.
[2021-07-01 15:00] VITALS: BP 107/57
[2021-07-01 19:00] VITALS: BP 116/57
[2021-07-01] MEDS ORDERED: GABAPENTIN 100 MG CAPSULE. PO SCH (21:00)
[2021-07-01 23:00] VITALS: BP 111/59
[2021-07-02 03:06] VITALS: BP 110/62
[2021-07-02 07:00] VITALS: BP 109/59
[2021-07-02] MEDS: PANTOPRAZOLE 40 MG TABLET.DR. PO SCH (08:35)
[2021-07-02] MEDS: SENNOSIDES/DOCUSATE 8.6/50MG TABLET. PO SCH ×2 (08:35→21:08)
[2021-07-02] MEDS: SUCRALFATE 1 GM TABLET. PO SCH ×4 (08:35→21:07)
[2021-07-02] MEDS: MULTIVITAMIN with MINERAL TABLET. PO SCH (08:35)
[2021-07-02] MEDS: OMEGA-3 FATTY ACIDS/FISH OIL 1,000 MG CAPSULE. PO SCH (08:35)
[2021-07-02] MEDS: FERROUS SULFATE 325 MG TABLET. PO SCH ×2 (08:35→18:07)
[2021-07-02] MEDS: CALCIUM CARBONATE 500 MG TABLET PO SCH (08:35)
[2021-07-02] MEDS: BETHANECHOL CHLORIDE 10 MG TABLET. PO SCH ×3 (08:36→18:07)
[2021-07-02] MEDS: IMMUNE GLOBULIN,GAMMA(IGG) 10% 200 ML IV SCH (09:00)
[2021-07-02 10:43] LABS: BASO % 1 % (0-3); EOS # 0.3 x10^3/uL (0.0-0.7); EOS % 4 % (0-3); HEMATOCRIT 29.8 % (36.0-47.0); HEMOGLOBIN 9.6 g/dL (12.0-15.5); LYMPH # 1.6 x10^3/uL (1.0-4.8); LYMPH % 21 % (24-48); MEAN CORPUSCULAR HEMOGLOBIN 23 pg (25-35); MEAN CORPUSCULAR HGB CONC 32 g/dL (31-37); MEAN CORPUSCULAR VOLUME 71 fL (79-100); MONO # 0.4 x10^3/uL (0.0-1.1); MONO % 6 % (0-9); NEUT # 5.4 x10^3/uL (1.8-7.7); NEUT % 69 % (31-73); PLATELET COUNT 535 x10^3/uL (140-400); RED BLOOD COUNT 4.18 x10^6/uL (3.50-5.40); WHITE BLOOD COUNT 7.8 x10^3/uL (4.0-11.0)
[2021-07-02 10:49] VITALS: BP 99/60
[2021-07-02 11:31] LABS: ALBUMIN 2.1 g/dL (3.4-5.0); ALBUMIN/GLOBULIN RATIO 0.4 (1.0-1.7); CALCIUM 8.3 mg/dL (8.5-10.1); CREATININE 0.7 mg/dL (0.6-1.0); GFR 82.5; POTASSIUM 3.8 mmol/L (3.5-5.1); TOTAL BILIRUBIN 0.2 mg/dL (0.2-1.0); TOTAL PROTEIN 7.8 g/dL (6.4-8.2)
--- NOTE | 2021-07-02 12:23 | PDOC ---
[facility] [facility] PROGRESS NOTE Date of Service DOS: DATE: 07/02/21 TIME: 12:17 Chief Complaint Chief Complaint Progressive Weakness - possibly AMSAN per neurology assessment Overactive bladder FTT (failure to thrive) in adult Liver cyst Gastric ulcer LE tingling - axonal neuropathy. Neurology has offered low dose gabapentin Loss of appetite - still low, offered stimulant, she is thinking about it. FEN - General diet FULL CODE Dispo - inpatient, will most definitely need acute rehab or SNF when discharge planning should begin which could happen as soon as 07/04/2021 History of Present Illness History of Present Illness Patient is a 70-year-old female presented to the emergency room today due to 3- month history of weakness. Patient says that things started late January early March 2021. She noticed she was feeling weaker than usual as she had been previously walking at least a mile a day and started struggling to do that. She also noticed food was not tasting very good so she decreased appetite. Says she has lost about 20 to 25 pounds over the course of the summer. Went to her primary care physician who noticed on lab work she was anemic and was iron deficient. Is secondary to a GI doctor to evaluate for any bleeding. She had an EGD performed by Dr. Gambino who found gastritis along with gastric ulcers. Says she was placed on sucralfate after this. Does report she had been having some diarrhea prior to being placed on sucralfate and it has helps this. Says she was placed on iron as well by her primary care physician. She was supposed to have an EUS at [facility] for pancreatic and hepatic cysts as well. Also saw a physical therapist 1 time who recommended she use a walker and says she has been walking "funny" ever since. 06/26: Patient came back from lumbar puncture procedure awake and alert. NAD. Patient is talkative. Patient is on room air. Patient complains of fatigue which progressed 06/27: CRP 111. Chart Reviewed. Pt was seen and examined. Discussed with RN. Pt is talkative about her hx. 06/28: Patient seen and examined. Feeling more weak, having nausea and vomiting and 2 episodes of fecal incontinence 06/29: Afebrile. Feeling more weak. She says after speaking with her sister she does not want to take prednisone today. EMGs with neurology today showed axonal slowing in sensory and motor distribution. 06/30: Afebrile. Starting IViG per neurology today for presumptive AMSAN after elevated IgG synthesis rate was found in CSF. Feeling weak, in better spirits. Appreciative of Dr. Carmona discussing with her niece 07/01: Afebrile. Improvement of weakness. Complaining of tingling. Pain and spasming of her legs overnight after floating her heels. She still does not have appetite and is forcing herself to eat. No pain. No CP or SOB. Has itching but notes this has been going on since December. Tolerated IVIG well. 07/02: Afebrile. 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 Also suspicious for inflammatory process, given elevated CRP. Addressed patient and sisters que stions and concerns to the best my ability. Vitals/I&O Vitals/I&O: Vital Signs Date Time Temp Pulse Resp B/P (MAP) Pulse Ox O2 Delivery O2 Flow Rate FiO2 07/02/21 10:49 98.5 101 16 99/60 (73) 95 Room Air 98.5 I & O 07/01/21 07/01/21 07/02/21 15:00 23:00 07:00 Intake Total 480 ml 0 ml 1200 ml Output Total 1100 ml 1100 ml 2400 ml Balance -620 ml -1100 ml -1200 ml Physical Exam Physical Exam: Rice Catheter bag on bedside, straw colored, small volume Alert and talkative Neuro: 4/5 strength to L dorsiflexion/plantar flexion 4/5 strength to L knee extension 3/5 strength to R dorsiflexion/plantar flexion 3/5 strength to R knee extension 3/5 manager security strength BL Appreciable fatigue with repetition of elbow flexion BL Cutaneous innervation intact to L4-S1 dermatomes BL with no obvious detriments 1+ Achilles DTR BL No obvious loss of tone General: Alert, Oriented X3, Cooperative, No acute distress Heart: Regular rate, Normal S1, Normal S2 Lungs: Clear Abdomen: Soft, No tenderness, No hepatosplenomegaly Extremities: No clubbing, No cyanosis, No edema, No tenderness/swelling Skin: No rashes, No significant lesion Labs Labs: Laboratory Tests Test 07/02/21 10:25 White Blood Count 7.8 x10^3/uL (4.0-11.0) Red Blood Count 4.18 x10^6/uL (3.50-5.40) Hemoglobin 9.6 g/dL (12.0-15.5) Hematocrit 29.8 % (36.0-47.0) Mean Corpuscular Volume 71 fL (79-100) Mean Corpuscular Hemoglobin 23 pg (25-35) Mean Corpuscular Hemoglobin Concent 32 g/dL (31-37) Red Cell Distribution Width 17.0 % (11.5-14.5) Platelet Count 535 x10^3/uL (140-400) Neutrophils (%) (Auto) 69 % (31-73) Lymphocytes (%) (Auto) 21 % (24-48) Monocytes (%) (Auto) 6 % (0-9) Eosinophils (%) (Auto) 4 % (0-3) Basophils (%) (Auto) 1 % (0-3) Neutrophils # (Auto) 5.4 x10^3/uL (1.8-7.7) Lymphocytes # (Auto) 1.6 x10^3/uL (1.0-4.8) Monocytes # (Auto) 0.4 x10^3/uL (0.0-1.1) Eosinophils # (Auto) 0.3 x10^3/uL (0.0-0.7) Basophils # (Auto) 0.0 x10^3/uL (0.0-0.2) Sodium Level 137 mmol/L (136-145) Potassium Level 3.8 mmol/L (3.5-5.1) Chloride Level 102 mmol/L (98-107) Carbon Dioxide Level 25 mmol/L (21-32) Anion Gap 10 (6-14) Blood Urea Nitrogen 15 mg/dL (7-20) Creatinine 0.7 mg/dL (0.6-1.0) Estimated GFR (Cockcroft-Gault) 82.5 BUN/Creatinine Ratio 21 (6-20) Glucose Level 108 mg/dL (70-99) Calcium Level 8.3 mg/dL (8.5-10.1) Total Bilirubin 0.2 mg/dL (0.2-1.0) Aspartate Amino Transf (AST/SGOT) 11 U/L (15-37) Alanine Aminotransferase (ALT/SGPT) 16 U/L (14-59) Alkaline Phosphatase 81 U/L (46-116) Total Protein 7.8 g/dL (6.4-8.2) Albumin 2.1 g/dL (3.4-5.0) Albumin/Globulin Ratio 0.4 (1.0-1.7) Assessment and Plan Assessmemt and Plan Problems Medical Problems: (1) Generalized weakness Status: Acute (2) Liver cyst Status: Acute Comment Review of Relevant I have reviewed the following items genesis (where applicable) has been applied. Medications: Current Medications Medications (Trade) Dose Ordered Sig/Morenita Route PRN Reason Start Time Stop Time Status Last Admin Dose Admin Gabapentin (Neurontin) 100 mg QHS PO 07/01/21 21:00 07/01/21 20:47 Justifications for Admission Other Justification BOO FABIAN MD Jul 02, 2021 12:23
--- NOTE | 2021-07-02 13:28 | PDOC ---
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 The elevated sedimentation rate and CRP imply there is some sort of other inflammatory process. Restless legs, gabapentin helps a little bit, but she would like to try a higher dose. No adverse effects Mild white matter disease on the brain MRI, mild degenerative cervical spine changes on the cervical MRI CT chest abdomen pelvis negative for neoplasm Plan Day 3 of 5 today, intravenous immunoglobulin, 0.4 g/kg daily for 5 days Increase gabapentin to 300 mg twice daily Await rest of tests: ANCA, reticulocytes, light chains, erythropoietin, copper. Note that that I already ordered protein electrophoresis and HARINDER, both of which were negative. Rehabilitation modalities, will need inpatient rehab after IVIG course completed Subjective Still has restless legs, gabapentin helps, no side effects Objective Vital Signs Date Time Temp Pulse Resp B/P (MAP) Pulse Ox O2 Delivery O2 Flow Rate FiO2 07/02/21 10:49 98.5 101 16 99/60 (73) 95 Room Air 98.5 Intake and Output 07/02/21 07:00 Intake Total 1680 ml Output Total 4600 ml Balance -2920 ml Intake Oral 1680 ml Output Urine Total 4600 ml PHYSICAL EXAM Alert. Oriented to time, place and person. PERRL. EOMI. CN: no focal findings. Muscle tone: normal. Muscle strength: 4/5 DTR: 0-1+ Plantar reflex: flexor Gait: not examined in bed. Sensory exam: Slight stocking-glove loss. No cerebellar signs elicited. Review of Relevant I have reviewed the following items genesis (where applicable) has been applied. Labs Laboratory Tests Test 07/01/21 07:55 07/02/21 10:25 White Blood Count 6.9 x10^3/uL (4.0-11.0) 7.8 x10^3/uL (4.0-11.0) Red Blood Count 4.06 x10^6/uL (3.50-5.40) 4.18 x10^6/uL (3.50-5.40) Hemoglobin 9.2 g/dL (12.0-15.5) 9.6 g/dL (12.0-15.5) Hematocrit 28.9 % (36.0-47.0) 29.8 % (36.0-47.0) Mean Corpuscular Volume 71 fL (79-100) 71 fL (79-100) Mean Corpuscular Hemoglobin 23 pg (25-35) 23 pg (25-35) Mean Corpuscular Hemoglobin Concent 32 g/dL (31-37) 32 g/dL (31-37) Red Cell Distribution Width 17.3 % (11.5-14.5) 17.0 % (11.5-14.5) Platelet Count 490 x10^3/uL (140-400) 535 x10^3/uL (140-400) Neutrophils (%) (Auto) 71 % (31-73) 69 % (31-73) Lymphocytes (%) (Auto) 19 % (24-48) 21 % (24-48) Monocytes (%) (Auto) 5 % (0-9) 6 % (0-9) Eosinophils (%) (Auto) 4 % (0-3) 4 % (0-3) Basophils (%) (Auto) 1 % (0-3) 1 % (0-3) Neutrophils # (Auto) 4.9 x10^3/uL (1.8-7.7) 5.4 x10^3/uL (1.8-7.7) Lymphocytes # (Auto) 1.3 x10^3/uL (1.0-4.8) 1.6 x10^3/uL (1.0-4.8) Monocytes # (Auto) 0.3 x10^3/uL (0.0-1.1) 0.4 x10^3/uL (0.0-1.1) Eosinophils # (Auto) 0.3 x10^3/uL (0.0-0.7) 0.3 x10^3/uL (0.0-0.7) Basophils # (Auto) 0.1 x10^3/uL (0.0-0.2) 0.0 x10^3/uL (0.0-0.2) Sodium Level 137 mmol/L (136-145) 137 mmol/L (136-145) Potassium Level 3.8 mmol/L (3.5-5.1) 3.8 mmol/L (3.5-5.1) Chloride Level 104 mmol/L (98-107) 102 mmol/L (98-107) Carbon Dioxide Level 25 mmol/L (21-32) 25 mmol/L (21-32) Anion Gap 8 (6-14) 10 (6-14) Blood Urea Nitrogen 15 mg/dL (7-20) 15 mg/dL (7-20) Creatinine 0.8 mg/dL (0.6-1.0) 0.7 mg/dL (0.6-1.0) Estimated GFR (Cockcroft-Gault) 70.7 82.5 BUN/Creatinine Ratio 19 (6-20) 21 (6-20) Glucose Level 89 mg/dL (70-99) 108 mg/dL (70-99) Calcium Level 7.9 mg/dL (8.5-10.1) 8.3 mg/dL (8.5-10.1) Ferritin 489 ng/mL (8-252) Total Bilirubin 0.2 mg/dL (0.2-1.0) 0.2 mg/dL (0.2-1.0) Aspartate Amino Transf (AST/SGOT) 7 U/L (15-37) 11 U/L (15-37) Alanine Aminotransferase (ALT/SGPT) 16 U/L (14-59) 16 U/L (14-59) Alkaline Phosphatase 75 U/L (46-116) 81 U/L (46-116) Total Protein 7.0 g/dL (6.4-8.2) 7.8 g/dL (6.4-8.2) Albumin 1.9 g/dL (3.4-5.0) 2.1 g/dL (3.4-5.0) Albumin/Globulin Ratio 0.4 (1.0-1.7) 0.4 (1.0-1.7) Laboratory Tests Test 07/02/21 10:25 White Blood Count 7.8 x10^3/uL (4.0-11.0) Red Blood Count 4.18 x10^6/uL (3.50-5.40) Hemoglobin 9.6 g/dL (12.0-15.5) Hematocrit 29.8 % (36.0-47.0) Mean Corpuscular Volume 71 fL (79-100) Mean Corpuscular Hemoglobin 23 pg (25-35) Mean Corpuscular Hemoglobin Concent 32 g/dL (31-37) Red Cell Distribution Width 17.0 % (11.5-14.5) Platelet Count 535 x10^3/uL (140-400) Neutrophils (%) (Auto) 69 % (31-73) Lymphocytes (%) (Auto) 21 % (24-48) Monocytes (%) (Auto) 6 % (0-9) Eosinophils (%) (Auto) 4 % (0-3) Basophils (%) (Auto) 1 % (0-3) Neutrophils # (Auto) 5.4 x10^3/uL (1.8-7.7) Lymphocytes # (Auto) 1.6 x10^3/uL (1.0-4.8) Monocytes # (Auto) 0.4 x10^3/uL (0.0-1.1) Eosinophils # (Auto) 0.3 x10^3/uL (0.0-0.7) Basophils # (Auto) 0.0 x10^3/uL (0.0-0.2) Sodium Level 137 mmol/L (136-145) Potassium Level 3.8 mmol/L (3.5-5.1) Chloride Level 102 mmol/L (98-107) Carbon Dioxide Level 25 mmol/L (21-32) Anion Gap 10 (6-14) Blood Urea Nitrogen 15 mg/dL (7-20) Creatinine 0.7 mg/dL (0.6-1.0) Estimated GFR (Cockcroft-Gault) 82.5 BUN/Creatinine Ratio 21 (6-20) Glucose Level 108 mg/dL (70-99) Calcium Level 8.3 mg/dL (8.5-10.1) Total Bilirubin 0.2 mg/dL (0.2-1.0) Aspartate Amino Transf (AST/SGOT) 11 U/L (15-37) Alanine Aminotransferase (ALT/SGPT) 16 U/L (14-59) Alkaline Phosphatase 81 U/L (46-116) Total Protein 7.8 g/dL (6.4-8.2) Albumin 2.1 g/dL (3.4-5.0) Albumin/Globulin Ratio 0.4 (1.0-1.7) Microbiology 06/26/21 CSF Gram Stain - Final, Complete 06/24/21 Urine Culture - Final, Complete Medications Current Medications Iohexol (Omnipaque 300 Mg/ml) 75 ml 1X ONCE IV Last administered on 06/24/21at 17:39; Start 06/24/21 at 17:30; Stop 06/24/21 at 17:31; Status DC Info (CONTRAST GIVEN -- Rx MONITORING) 1 each PRN DAILY PRN MC SEE COMMENTS; Start 06/24/21 at 17:30; Stop 06/26/21 at 17:29; Status DC Potassium Chloride (Klor-Con) 40 meq 1X ONCE PO Last administered on 06/24/21at 21:19; Start 06/24/21 at 18:15; Stop 06/24/21 at 18:16; Status DC Ondansetron HCl (Zofran) 4 mg PRN Q6HRS PRN IVP NAUSEA/VOMITING Last administered on 06/29/21at 17:12; Start 06/24/21 at 18:45 Calcium Carbonate/ Glycine (Tums) 500 mg PRN Q3HRS PRN PO UPSET STOMACH; Start 06/24/21 at 18:45 Info (Non-Icu Electrolyte Protocol) 1 ea PRN DAILY PRN MC SEE COMMENTS; Start 06/24/21 at 18:45 Oxycodone/ Acetaminophen (Percocet 5/325) 1 tab PRN Q4HRS PRN PO MILD PAIN, 1ST CHOICE; Start 06/24/21 at 18:45 Oxycodone/ Acetaminophen (Percocet 5/325) 2 tab PRN Q4HRS PRN PO MODERATE PAIN, SEVERE PAIN; Start 06/24/21 at 18:45 Acetaminophen (Tylenol) 650 mg PRN Q6HRS PRN PO Headaches, Temp > 101.5F; Start 06/24/21 at 18:45; Stop 06/25/21 at 16:06; Status DC Senna/Docusate Sodium (Senna Plus) 1 tab BID PO Last administered on 07/02/21at 08:35; Start 06/24/21 at 21:00 Heparin Sodium (Porcine) (Heparin Sodium) 5,000 unit Q12HR SQ Last administered on 06/25/21at 21:02; Start 06/24/21 at 21:00; Stop 06/26/21 at 08:37; Status DC Pantoprazole Sodium (Protonix) 40 mg DAILYAC PO Last administered on 06/25/21at 06:21; Start 06/24/21 at 20:30; Stop 06/25/21 at 16:06; Status DC Sucralfate (Carafate) 1 gm DAILY PO Last administered on 06/25/21at 09:25; Start 06/25/21 at 09:00; Stop 06/25/21 at 16:05; Status DC Influenza Virus Vaccine Quadrival (Flulaval Quad [id number] Syringe) 0.5 ml ONCE ONCE VAX IM ; Start 06/25/21 at 09:00; Stop 06/25/21 at 09:01; Status DC Bethanechol Chloride (Urecholine) 10 mg TIDAC PO Last administered on 07/02/21at 08:36; Start 06/25/21 at 16:30 Acetaminophen (Tylenol) 650 mg PRN Q6HRS PRN PO MILD PAIN 1-3 Last administered on 06/28/21at 04:26; Start 06/25/21 at 16:15 Acetaminophen/ Codeine Phosphate (Tylenol #3) 1 tab PRN Q6HRS PRN PO MODERATE PAIN, 2ND CHOICE; Start 06/25/21 at 16:15 Calcium Carbonate/ Glycine (Oscal) 1,000 mg DAILY PO Last administered on 07/02/21 08:35; Start 06/26/21 at 09:00 Ferrous Sulfate (Feosol) 325 mg BIDWMEALS PO Last administered on 07/02/21 08:35; Start 06/25/21 at 17:00 Fish Oil (Fish Oil) 1,000 mg DAILY PO Last administered on 07/02/21 08:35; Start 06/26/21 at 09:00 Pantoprazole Sodium (Protonix) 40 mg DAILYAC PO Last administered on 07/02/21 08:35; Start 06/26/21 at 07:30 Sucralfate (Carafate) 1 gm QIDACHS PO Last administered on 07/02/21 08:35; Start 06/25/21 at 16:30 Multivitamins (Thera M Plus) 1 tab DAILY PO Last administered on 9/30/21at 08:35; Start 06/26/21 at 09:00 Lidocaine HCl (Lidocaine 1% 20ml Vial) 20 ml 1X ONCE INJ Last administered on 06/26/21at 11:45; Start 06/26/21 at 10:15; Stop 06/26/21 at 10:16; Status DC Prednisone (Prednisone) 15 mg DAILY PO ; Start 06/28/21 at 16:00; Stop 07/01/21 at 08:27; Status DC Sodium Chloride 1,000 ml @ 75 mls/hr [id number] IV Last administered on 07/01/21at 20:47; Start 06/29/21 at 13:30 Influenza Virus Vaccine Quadrival (Flulaval Quad [id number] Syringe) 0.5 ml ONCE ONCE VAX IM ; Start 06/29/21 at 13:45; Stop 06/29/21 at 13:46; Status DC Immune Globulin 200 ml @ 0 mls/hr DAILY IV Last administered on 07/01/21at 12:12; Start 06/30/21 at 09:00; Stop 07/05/21 at 08:59 Iohexol (Omnipaque 240 Mg/ml) 50 ml 1X ONCE PO Last administered on 06/30/21at 10:00; Start 06/30/21 at 10:00; Stop 06/30/21 at 10:01; Status DC Iohexol (Omnipaque 300 Mg/ml) 75 ml 1X ONCE IV Last administered on 06/30/21at 10:00; Start 06/30/21 at 10:00; Stop 06/30/21 at 10:01; Status DC Info (CONTRAST GIVEN -- Rx MONITORING) 1 each PRN DAILY PRN MC SEE COMMENTS; Start 06/30/21 at 10:00; Stop 07/02/21 at 09:59; Status DC Gabapentin (Neurontin) 100 mg BID PRN PO MUSCLE SPASMS Last administered on 07/02/21at 08:48; Start 07/01/21 at 10:30 Gabapentin (Neurontin) 100 mg QHS PO Last administered on 07/01/21at 20:47; Start 07/01/21 at 21:00 Active Scripts Active Acetaminophen-Cod #3 Tablet (Acetaminophen/Codeine Phosphate) 1 Each Tablet 1 Tab PO PRN Q6HRS PRN 3 Days Reported Fish Oil 1,000 Mg Softgel ([place]-3 Fatty Acids/Fish Oil) 1 Each Capsule 2 Cap PO DAILY 30 Days Multi-Vitamin Daily (Multivitamin) 1 Each Tablet 1 Tab PO DAILY 30 Days Calcium (Calcium Carbonate) 500 Mg Tablet 2 Tab PO DAILY 30 Days Tylenol (Acetaminophen) 325 Mg Tablet 650 Mg PO Q6HRS PRN Ferrous Sulfate 325 Mg Tablet 1 Tab PO BID Pantoprazole Sodium (Pantoprazole Sodium) 40 Mg Tablet.dr 40 Mg PO DAILYAC Carafate (Sucralfate) 1 Gm Tablet 1 Tab PO QID 30 Days Vitals/I & O Vital Sign - Last 24 Hours 07/01/21 07/01/21 07/01/21 07/01/21 15:00 19:00 19:26 23:00 Temp 98.4 97.5 99.6 98.4 97.5 99.6 Pulse 93 84 84 Resp 20 18 16 B/P (MAP) 107/57 (74) 116/57 (76) 111/59 (76) Pulse Ox 97 97 95 O2 Delivery Room Air Room Air Room Air Room Air 07/02/21 07/02/21 07/02/21 03:06 07:00 10:49 Temp 98.5 98.3 98.5 98.5 98.3 98.5 Pulse 86 88 101 Resp 16 16 16 B/P (MAP) 110/62 (78) 109/59 (76) 99/60 (73) Pulse Ox 95 97 95 O2 Delivery Room Air Room Air Room Air Intake and Output 07/01/21 07/01/21 07/02/21 15:00 23:00 07:00 Intake Total 480 ml 0 ml 1200 ml Output Total 1100 ml 1100 ml 2400 ml Balance -620 ml -1100 ml -1200 ml Justicifation of Admission Dx: Justifications for Admission: Justification of Admission Dx: Yes LAURA HUERTA MD Jul 02, 2021 13:28
[2021-07-02] MEDS ORDERED: GABAPENTIN 100 MG CAPSULE. PO PRN (13:30)
[2021-07-02 14:11] LABS: C ANCA <1:20 titer (Neg:<1:20); P ANCA <1:20 titer (Neg:<1:20)
[2021-07-02 15:20] VITALS: BP 132/66
[2021-07-02 19:00] VITALS: BP 96/48
[2021-07-02] MEDS: GABAPENTIN 300 MG CAPSULE. PO SCH (21:07)
[2021-07-02] MEDS: IV NORMAL SALINE 1000ML BAG 1,000 ML IV SCH ×2 (21:08→21:30)
[2021-07-02 23:30] VITALS: BP 111/60
[2021-07-03] VITALS (12 sets, daily range): BP systolic 94–130; BP diastolic 42–60
--- NOTE | 2021-07-03 06:46 | PDOC ---
[facility] PROGRESS NOTE Date of Service DOS: DATE: 07/03/21 TIME: 06:46 Chief Complaint Chief Complaint Progressive Weakness - possibly AMSAN per neurology assessment Overactive bladder FTT (failure to thrive) in adult Liver cyst Gastric ulcer LE tingling - axonal neuropathy. Neurology has offered low dose gabapentin Loss of appetite - still low, offered stimulant, she is thinking about it. FEN - General diet FULL CODE Dispo - inpatient, will most definitely need acute rehab or SNF when discharge planning should begin which could happen as soon as 07/04/2021 History of Present Illness History of Present Illness Patient is a 70-year-old female presented to the emergency room today due to 3- month history of weakness. Patient says that things started late January early March 2021. She noticed she was feeling weaker than usual as she had been previously walking at least a mile a day and started struggling to do that. She also noticed food was not tasting very good so she decreased appetite. Says she has lost about 20 to 25 pounds over the course of the summer. Went to her primary care physician who noticed on lab work she was anemic and was iron deficient. Is secondary to a GI doctor to evaluate for any bleeding. She had an EGD performed by Dr. Gambino who found gastritis along with gastric ulcers. Says she was placed on sucralfate after this. Does report she had been having some diarrhea prior to being placed on sucralfate and it has helps this. Says she was placed on iron as well by her primary care physician. She was supposed to have an EUS at [facility] for pancreatic and hepatic cysts as well. Also saw a physical therapist 1 time who recommended she use a walker and says she has been walking "funny" ever since. 06/26: Patient came back from lumbar puncture procedure awake and alert. NAD. Patient is talkative. Patient is on room air. Patient complains of fatigue which progressed 06/27: CRP 111. Chart Reviewed. Pt was seen and examined. Discussed with RN. Pt is talkative about her hx. 06/28: Patient seen and examined. Feeling more weak, having nausea and vomiting and 2 episodes of fecal incontinence 06/29: Afebrile. Feeling more weak. She says after speaking with her sister she does not want to take prednisone today. EMGs with neurology today showed axonal slowing in sensory and motor distribution. 06/30: Afebrile. Starting IViG per neurology today for presumptive AMSAN after elevated IgG synthesis rate was found in CSF. Feeling weak, in better spirits. Appreciative of Dr. Carmona discussing with her niece 07/01: Afebrile. Improvement of weakness. Complaining of tingling. Pain and spasming of her legs overnight after floating her heels. She still does not have appetite and is forcing herself to eat. No pain. No CP or SOB. Has itching but notes this has been going on since December. Tolerated IVIG well. 07/02: Afebrile. 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 Also suspicious for inflammatory process, given elevated CRP. Addressed patient and sisters que stions and concerns to the best my ability. 07/03: Afebrile. Appetite is about the same. She has had a couple episodes of fecal incontinence but notes she was trying to pass gas. Motor strength is a little improved and sensation is about the same but no further loss of sensation. Vitals/I&O Vitals/I&O: Vital Signs Date Time Temp Pulse Resp B/P (MAP) Pulse Ox O2 Delivery O2 Flow Rate FiO2 07/03/21 03:00 98.7 77 18 94/48 (63) 96 Room Air 98.7 I & O 07/02/21 07/02/21 07/03/21 15:00 23:00 07:00 Intake Total 240 ml 340 ml 360 ml Output Total 1000 ml Balance 240 ml -660 ml 360 ml Physical Exam Physical Exam: Rice Catheter bag on bedside, straw colored, small volume Alert and talkative Neuro: 4/5 strength to L dorsiflexion/plantar flexion 4/5 strength to L knee extension 3/5 strength to R dorsiflexion/plantar flexion 3/5 strength to R knee extension 3/5 product designer strength BL Appreciable fatigue with repetition of elbow flexion BL Cutaneous innervation intact to L4-S1 dermatomes BL with no obvious detriments 1+ Achilles DTR BL No obvious loss of tone General: Alert, Oriented X3, Cooperative, No acute distress Heart: Regular rate, Normal S1, Normal S2 Lungs: Clear Abdomen: Soft, No tenderness, No hepatosplenomegaly Extremities: No clubbing, No cyanosis, No edema, No tenderness/swelling Skin: No rashes, No significant lesion Labs Labs: Laboratory Tests Test 07/02/21 10:25 White Blood Count 7.8 x10^3/uL (4.0-11.0) Red Blood Count 4.18 x10^6/uL (3.50-5.40) Hemoglobin 9.6 g/dL (12.0-15.5) Hematocrit 29.8 % (36.0-47.0) Mean Corpuscular Volume 71 fL (79-100) Mean Corpuscular Hemoglobin 23 pg (25-35) Mean Corpuscular Hemoglobin Concent 32 g/dL (31-37) Red Cell Distribution Width 17.0 % (11.5-14.5) Platelet Count 535 x10^3/uL (140-400) Neutrophils (%) (Auto) 69 % (31-73) Lymphocytes (%) (Auto) 21 % (24-48) Monocytes (%) (Auto) 6 % (0-9) Eosinophils (%) (Auto) 4 % (0-3) Basophils (%) (Auto) 1 % (0-3) Neutrophils # (Auto) 5.4 x10^3/uL (1.8-7.7) Lymphocytes # (Auto) 1.6 x10^3/uL (1.0-4.8) Monocytes # (Auto) 0.4 x10^3/uL (0.0-1.1) Eosinophils # (Auto) 0.3 x10^3/uL (0.0-0.7) Basophils # (Auto) 0.0 x10^3/uL (0.0-0.2) Sodium Level 137 mmol/L (136-145) Potassium Level 3.8 mmol/L (3.5-5.1) Chloride Level 102 mmol/L (98-107) Carbon Dioxide Level 25 mmol/L (21-32) Anion Gap 10 (6-14) Blood Urea Nitrogen 15 mg/dL (7-20) Creatinine 0.7 mg/dL (0.6-1.0) Estimated GFR (Cockcroft-Gault) 82.5 BUN/Creatinine Ratio 21 (6-20) Glucose Level 108 mg/dL (70-99) Calcium Level 8.3 mg/dL (8.5-10.1) Total Bilirubin 0.2 mg/dL (0.2-1.0) Aspartate Amino Transf (AST/SGOT) 11 U/L (15-37) Alanine Aminotransferase (ALT/SGPT) 16 U/L (14-59) Alkaline Phosphatase 81 U/L (46-116) Total Protein 7.8 g/dL (6.4-8.2) Albumin 2.1 g/dL (3.4-5.0) Albumin/Globulin Ratio 0.4 (1.0-1.7) Assessment and Plan Assessmemt and Plan Problems Medical Problems: (1) Generalized weakness Status: Acute (2) Liver cyst Status: Acute Comment Review of Relevant I have reviewed the following items genesis (where applicable) has been applied. Medications: Current Medications Medications (Trade) Dose Ordered Sig/[place] Route PRN Reason Start Time Stop Time Status Last Admin Dose Admin Gabapentin (Neurontin) 300 mg BID PO 07/02/21 21:00 07/02/21 21:07 Justifications for Admission Other Justification RAMILA VICENTE MD Jul 03, 2021 06:46
[2021-07-03] MEDS: MULTIVITAMIN with MINERAL TABLET. PO SCH (08:20)
[2021-07-03] MEDS: GABAPENTIN 300 MG CAPSULE. PO SCH ×2 (08:20→21:46)
[2021-07-03] MEDS: BETHANECHOL CHLORIDE 10 MG TABLET. PO SCH ×3 (08:20→18:30)
[2021-07-03] MEDS: CALCIUM CARBONATE 500 MG TABLET PO SCH (08:21)
[2021-07-03] MEDS: PANTOPRAZOLE 40 MG TABLET.DR. PO SCH (08:22)
[2021-07-03] MEDS: SENNOSIDES/DOCUSATE 8.6/50MG TABLET. PO SCH ×2 (08:22→21:44)
[2021-07-03] MEDS: SUCRALFATE 1 GM TABLET. PO SCH ×4 (08:22→21:44)
[2021-07-03] MEDS: FERROUS SULFATE 325 MG TABLET. PO SCH ×2 (08:22→18:30)
[2021-07-03] MEDS: OMEGA-3 FATTY ACIDS/FISH OIL 1,000 MG CAPSULE. PO SCH (08:22)
--- NOTE | 2021-07-03 08:49 | PDOC ---
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 The elevated sedimentation rate and CRP imply there is some sort of other inflammatory process. She is better today Restless legs, better with higher gabapentin dose. No adverse effects Mild white matter disease on the brain MRI, mild degenerative cervical spine changes on the cervical MRI CT chest abdomen pelvis negative for neoplasm Plan Day 4 of 5 today, intravenous immunoglobulin, 0.4 g/kg daily for 5 days Increased gabapentin to 300 mg twice daily Await rest of tests: ANCA, reticulocytes, light chains, erythropoietin, copper. Note that that I already ordered protein electrophoresis and HARINDER, both of which were negative. Rehabilitation modalities, will need inpatient rehab after IVIG course completed. Aim for discharge to rehab on 07/06 If discharged before I see her again, she needs to follow-up with me in 4-6 weeks Subjective Slept better last night, still some mild restless legs Objective Vital Signs Date Time Temp Pulse Resp B/P (MAP) Pulse Ox O2 Delivery O2 Flow Rate FiO2 07/03/21 07:00 98.0 88 17 124/60 (81) 96 Room Air 98.0 Intake and Output 07/03/21 07:00 Intake Total 940 ml Output Total 1000 ml Balance -60 ml Intake Oral 940 ml Output Urine Total 1000 ml # Bowel Movements 1 PHYSICAL EXAM Alert. Oriented to time, place and person. PERRL. EOMI. CN: no focal findings. Muscle tone: normal. Muscle strength: 4/5, stronger, right shoulder limited by arthritis DTR: 0-1+ Plantar reflex: flexor Gait: not examined in bed. Sensory exam: Slight stocking-glove loss. No cerebellar signs elicited. Review of Relevant I have reviewed the following items genesis (where applicable) has been applied. Labs Laboratory Tests Test 07/02/21 10:25 White Blood Count 7.8 x10^3/uL (4.0-11.0) Red Blood Count 4.18 x10^6/uL (3.50-5.40) Hemoglobin 9.6 g/dL (12.0-15.5) Hematocrit 29.8 % (36.0-47.0) Mean Corpuscular Volume 71 fL (79-100) Mean Corpuscular Hemoglobin 23 pg (25-35) Mean Corpuscular Hemoglobin Concent 32 g/dL (31-37) Red Cell Distribution Width 17.0 % (11.5-14.5) Platelet Count 535 x10^3/uL (140-400) Neutrophils (%) (Auto) 69 % (31-73) Lymphocytes (%) (Auto) 21 % (24-48) Monocytes (%) (Auto) 6 % (0-9) Eosinophils (%) (Auto) 4 % (0-3) Basophils (%) (Auto) 1 % (0-3) Neutrophils # (Auto) 5.4 x10^3/uL (1.8-7.7) Lymphocytes # (Auto) 1.6 x10^3/uL (1.0-4.8) Monocytes # (Auto) 0.4 x10^3/uL (0.0-1.1) Eosinophils # (Auto) 0.3 x10^3/uL (0.0-0.7) Basophils # (Auto) 0.0 x10^3/uL (0.0-0.2) Sodium Level 137 mmol/L (136-145) Potassium Level 3.8 mmol/L (3.5-5.1) Chloride Level 102 mmol/L (98-107) Carbon Dioxide Level 25 mmol/L (21-32) Anion Gap 10 (6-14) Blood Urea Nitrogen 15 mg/dL (7-20) Creatinine 0.7 mg/dL (0.6-1.0) Estimated GFR (Cockcroft-Gault) 82.5 BUN/Creatinine Ratio 21 (6-20) Glucose Level 108 mg/dL (70-99) Calcium Level 8.3 mg/dL (8.5-10.1) Total Bilirubin 0.2 mg/dL (0.2-1.0) Aspartate Amino Transf (AST/SGOT) 11 U/L (15-37) Alanine Aminotransferase (ALT/SGPT) 16 U/L (14-59) Alkaline Phosphatase 81 U/L (46-116) Total Protein 7.8 g/dL (6.4-8.2) Albumin 2.1 g/dL (3.4-5.0) Albumin/Globulin Ratio 0.4 (1.0-1.7) Laboratory Tests Test 07/02/21 10:25 White Blood Count 7.8 x10^3/uL (4.0-11.0) Red Blood Count 4.18 x10^6/uL (3.50-5.40) Hemoglobin 9.6 g/dL (12.0-15.5) Hematocrit 29.8 % (36.0-47.0) Mean Corpuscular Volume 71 fL (79-100) Mean Corpuscular Hemoglobin 23 pg (25-35) Mean Corpuscular Hemoglobin Concent 32 g/dL (31-37) Red Cell Distribution Width 17.0 % (11.5-14.5) Platelet Count 535 x10^3/uL (140-400) Neutrophils (%) (Auto) 69 % (31-73) Lymphocytes (%) (Auto) 21 % (24-48) Monocytes (%) (Auto) 6 % (0-9) Eosinophils (%) (Auto) 4 % (0-3) Basophils (%) (Auto) 1 % (0-3) Neutrophils # (Auto) 5.4 x10^3/uL (1.8-7.7) Lymphocytes # (Auto) 1.6 x10^3/uL (1.0-4.8) Monocytes # (Auto) 0.4 x10^3/uL (0.0-1.1) Eosinophils # (Auto) 0.3 x10^3/uL (0.0-0.7) Basophils # (Auto) 0.0 x10^3/uL (0.0-0.2) Sodium Level 137 mmol/L (136-145) Potassium Level 3.8 mmol/L (3.5-5.1) Chloride Level 102 mmol/L (98-107) Carbon Dioxide Level 25 mmol/L (21-32) Anion Gap 10 (6-14) Blood Urea Nitrogen 15 mg/dL (7-20) Creatinine 0.7 mg/dL (0.6-1.0) Estimated GFR (Cockcroft-Gault) 82.5 BUN/Creatinine Ratio 21 (6-20) Glucose Level 108 mg/dL (70-99) Calcium Level 8.3 mg/dL (8.5-10.1) Total Bilirubin 0.2 mg/dL (0.2-1.0) Aspartate Amino Transf (AST/SGOT) 11 U/L (15-37) Alanine Aminotransferase (ALT/SGPT) 16 U/L (14-59) Alkaline Phosphatase 81 U/L (46-116) Total Protein 7.8 g/dL (6.4-8.2) Albumin 2.1 g/dL (3.4-5.0) Albumin/Globulin Ratio 0.4 (1.0-1.7) Microbiology 06/26/21 CSF Gram Stain - Final, Complete 06/24/21 Urine Culture - Final, Complete Medications Current Medications Iohexol (Omnipaque 300 Mg/ml) 75 ml 1X ONCE IV Last administered on 06/24/21at 17:39; Start 06/24/21 at 17:30; Stop 06/24/21 at 17:31; Status DC Info (CONTRAST GIVEN -- Rx MONITORING) 1 each PRN DAILY PRN MC SEE COMMENTS; Start 06/24/21 at 17:30; Stop 06/26/21 at 17:29; Status DC Potassium Chloride (Klor-Con) 40 meq 1X ONCE PO Last administered on 06/24/21at 21:19; Start 06/24/21 at 18:15; Stop 06/24/21 at 18:16; Status DC Ondansetron HCl (Zofran) 4 mg PRN Q6HRS PRN IVP NAUSEA/VOMITING Last administered on 06/29/21at 17:12; Start 06/24/21 at 18:45 Calcium Carbonate/ Glycine (Tums) 500 mg PRN Q3HRS PRN PO UPSET STOMACH; Start 06/24/21 at 18:45 Info (Non-Icu Electrolyte Protocol) 1 ea PRN DAILY PRN MC SEE COMMENTS; Start 06/24/21 at 18:45 Oxycodone/ Acetaminophen (Percocet 5/325) 1 tab PRN Q4HRS PRN PO MILD PAIN, 1ST CHOICE; Start 06/24/21 at 18:45 Oxycodone/ Acetaminophen (Percocet 5/325) 2 tab PRN Q4HRS PRN PO MODERATE PAIN, SEVERE PAIN; Start 06/24/21 at 18:45 Acetaminophen (Tylenol) 650 mg PRN Q6HRS PRN PO Headaches, Temp > 101.5F; Start 06/24/21 at 18:45; Stop 06/25/21 at 16:06; Status DC Senna/Docusate Sodium (Senna Plus) 1 tab BID PO Last administered on 07/02/21at 21:08; Start 06/24/21 at 21:00 Heparin Sodium (Porcine) (Heparin Sodium) 5,000 unit Q12HR SQ Last administered on 06/25/21at 21:02; Start 06/24/21 at 21:00; Stop 06/26/21 at 08:37; Status DC Pantoprazole Sodium (Protonix) 40 mg DAILYAC PO Last administered on 06/25/21at 06:21; Start 06/24/21 at 20:30; Stop 06/25/21 at 16:06; Status DC Sucralfate (Carafate) 1 gm DAILY PO Last administered on 06/25/21at 09:25; Start 06/25/21 at 09:00; Stop 06/25/21 at 16:05; Status DC Influenza Virus Vaccine Quadrival (Flulaval Quad [id number] Syringe) 0.5 ml ONCE ONCE VAX IM ; Start 06/25/21 at 09:00; Stop 06/25/21 at 09:01; Status DC Bethanechol Chloride (Urecholine) 10 mg TIDAC PO Last administered on 07/03/21at 08:20; Start 06/25/21 at 16:30 Acetaminophen (Tylenol) 650 mg PRN Q6HRS PRN PO MILD PAIN 1-3 Last administered on 06/28/21at 04:26; Start 06/25/21 at 16:15 Acetaminophen/ Codeine Phosphate (Tylenol #3) 1 tab PRN Q6HRS PRN PO MODERATE PAIN, 2ND CHOICE; Start 06/25/21 at 16:15 Calcium Carbonate/ Glycine (Oscal) 1,000 mg DAILY PO Last administered on 07/03/21at 08:21; Start 06/26/21 at 09:00 Ferrous Sulfate (Feosol) 325 mg BIDWMEALS PO Last administered on 07/03/21at 08:22; Start 06/25/21 at 17:00 Fish Oil (Fish Oil) 1,000 mg DAILY PO Last administered on 07/03/21at 08:22; Start 06/26/21 at 09:00 Pantoprazole Sodium (Protonix) 40 mg DAILYAC PO Last administered on 07/03/21at 08:22; Start 06/26/21 at 07:30 Sucralfate (Carafate) 1 gm QIDACHS PO Last administered on 07/03/21at 08:22; Start 06/25/21 at 16:30 Multivitamins (Thera M Plus) 1 tab DAILY PO Last administered on 07/03/21at 08:20; Start 06/26/21 at 09:00 Lidocaine HCl (Lidocaine 1% 20ml Vial) 20 ml 1X ONCE INJ Last administered on 06/26/21at 11:45; Start 06/26/21 at 10:15; Stop 06/26/21 at 10:16; Status DC Prednisone (Prednisone) 15 mg DAILY PO ; Start 06/28/21 at 16:00; Stop 07/01/21 at 08:27; Status DC Sodium Chloride 1,000 ml @ 75 mls/hr [id number] IV Last administered on 07/02/21at 21:08; Start 06/29/21 at 13:30 Influenza Virus Vaccine Quadrival (Flulaval Quad [id number] Syringe) 0.5 ml ONCE ONCE VAX IM ; Start 06/29/21 at 13:45; Stop 06/29/21 at 13:46; Status DC Immune Globulin 200 ml @ 0 mls/hr DAILY IV Last administered on 07/02/21at 09:00; Start 06/30/21 at 09:00; Stop 07/05/21 at 08:59 Iohexol (Omnipaque 240 Mg/ml) 50 ml 1X ONCE PO Last administered on 06/30/21at 10:00; Start 06/30/21 at 10:00; Stop 06/30/21 at 10:01; Status DC Iohexol (Omnipaque 300 Mg/ml) 75 ml 1X ONCE IV Last administered on 06/30/21at 10:00; Start 06/30/21 at 10:00; Stop 06/30/21 at 10:01; Status DC Info (CONTRAST GIVEN -- Rx MONITORING) 1 each PRN DAILY PRN MC SEE COMMENTS; Start 06/30/21 at 10:00; Stop 07/02/21 at 09:59; Status DC Gabapentin (Neurontin) 100 mg BID PRN PO MUSCLE SPASMS Last administered on 07/02/21at 08:48; Start 07/01/21 at 10:30; Stop 07/02/21 at 13:29; Status DC Gabapentin (Neurontin) 100 mg QHS PO Last administered on 07/01/21at 20:47; Start 07/01/21 at 21:00; Stop 07/02/21 at 13:27; Status DC Gabapentin (Neurontin) 300 mg BID PO Last administered on 07/03/21at 08:20; Start 07/02/21 at 21:00 Gabapentin (Neurontin) 100 mg PRN BID PRN PO MUSCLE SPASMS Last administered on 07/03/21at 08:20; Start 07/02/21 at 13:30 Active Scripts Active Acetaminophen-Cod #3 Tablet (Acetaminophen/Codeine Phosphate) 1 Each Tablet 1 Tab PO PRN Q6HRS PRN 3 Days Reported Fish Oil 1,000 Mg Softgel (Lisco-3 Fatty Acids/Fish Oil) 1 Each Capsule 2 Cap PO DAILY 30 Days Multi-Vitamin Daily (Multivitamin) 1 Each Tablet 1 Tab PO DAILY 30 Days Calcium (Calcium Carbonate) 500 Mg Tablet 2 Tab PO DAILY 30 Days Tylenol (Acetaminophen) 325 Mg Tablet 650 Mg PO Q6HRS PRN Ferrous Sulfate 325 Mg Tablet 1 Tab PO BID Pantoprazole Sodium (Pantoprazole Sodium) 40 Mg Tablet.dr 40 Mg PO DAILYAC Carafate (Sucralfate) 1 Gm Tablet 1 Tab PO QID 30 Days Vitals/I & O Vital Sign - Last 24 Hours 07/02/21 07/02/21 07/02/21 07/02/21 10:49 15:20 19:00 20:00 Temp 98.5 98.0 98.7 98.5 98.0 98.7 Pulse 101 80 94 Resp 16 18 17 B/P (MAP) 99/60 (73) 132/66 (88) 96/48 (64) Pulse Ox 95 96 96 O2 Delivery Room Air Room Air Room Air Room Air 07/02/21 07/03/21 07/03/21 23:30 03:00 07:00 Temp 98.3 98.7 98.0 98.3 98.7 98.0 Pulse 76 77 88 Resp 16 18 17 B/P (MAP) 111/60 (77) 94/48 (63) 124/60 (81) Pulse Ox 96 96 96 O2 Delivery Room Air Room Air Room Air Intake and Output 07/02/21 07/02/21 07/03/21 15:00 23:00 07:00 Intake Total 240 ml 340 ml 360 ml Output Total 1000 ml Balance 240 ml -660 ml 360 ml Justicifation of Admission Dx: Justifications for Admission: Justification of Admission Dx: Yes LAURA UHERTA MD Jul 03, 2021 08:49
[2021-07-03 10:25] LABS: BASO # 0.1 x10^3/uL (0.0-0.2); BASO % 1 % (0-3); EOS # 0.4 x10^3/uL (0.0-0.7); EOS % 6 % (0-3); HEMATOCRIT 27.9 % (36.0-47.0); HEMOGLOBIN 8.9 g/dL (12.0-15.5); LYMPH # 1.4 x10^3/uL (1.0-4.8); LYMPH % 19 % (24-48); MEAN CORPUSCULAR HEMOGLOBIN 23 pg (25-35); MEAN CORPUSCULAR HGB CONC 32 g/dL (31-37); MEAN CORPUSCULAR VOLUME 71 fL (79-100); MONO # 0.3 x10^3/uL (0.0-1.1); MONO % 4 % (0-9); NEUT # 5.4 x10^3/uL (1.8-7.7); NEUT % 70 % (31-73); PLATELET COUNT 480 x10^3/uL (140-400); RED BLOOD COUNT 3.92 x10^6/uL (3.50-5.40); RED CELL DISTRIBUTION WIDTH 17.4 % (11.5-14.5); WHITE BLOOD COUNT 7.7 x10^3/uL (4.0-11.0)
[2021-07-03 10:42] LABS: ALBUMIN 1.8 g/dL (3.4-5.0); ALBUMIN/GLOBULIN RATIO 0.3 (1.0-1.7); CREATININE 0.8 mg/dL (0.6-1.0); GFR 70.7; POTASSIUM 3.5 mmol/L (3.5-5.1); TOTAL BILIRUBIN 0.3 mg/dL (0.2-1.0)
--- NOTE | 2021-07-03 12:02 | NUR ---
ANA following. Discussed with RN, pt will finish medication tomorrow (07/04/21). Peterson Quiles submitting for insurance auth today. Once [facility] confirms they have submitted, ANA will send email to [facility]. ANA will continue to follow. Addendum: 07/03/21 at 1212 by CAM PEREZ Bg (Peterson Quiles) advised [facility] authorizations are waived until Tuesday, so they can take pt tomorrow after her last dose of the IV medication. Peterson needs to know if there will be any follow up doses of the IVIG as it is $11,000. RN paging physician. ANA will continue to follow.
[2021-07-03] MEDS: IMMUNE GLOBULIN,GAMMA(IGG) 10% 200 ML IV SCH (13:09)
[2021-07-03] MEDS: IV NORMAL SALINE 1000ML BAG 1,000 ML IV SCH (18:36)
[2021-07-04] MEDS: IV NORMAL SALINE 1000ML BAG 1,000 ML IV SCH ×2 (00:16→13:30)
[2021-07-04 03:00] VITALS: BP 98/54
[2021-07-04 07:00] VITALS: BP 114/56
[2021-07-04] MEDS: OMEGA-3 FATTY ACIDS/FISH OIL 1,000 MG CAPSULE. PO SCH (09:03)
[2021-07-04] MEDS: SUCRALFATE 1 GM TABLET. PO SCH ×4 (09:03→20:17)
[2021-07-04] MEDS: PANTOPRAZOLE 40 MG TABLET.DR. PO SCH (09:03)
[2021-07-04] MEDS: BETHANECHOL CHLORIDE 10 MG TABLET. PO SCH ×3 (09:03→17:05)
[2021-07-04] MEDS: SENNOSIDES/DOCUSATE 8.6/50MG TABLET. PO SCH ×2 (09:03→20:16)
[2021-07-04] MEDS: GABAPENTIN 300 MG CAPSULE. PO SCH ×2 (09:03→20:17)
[2021-07-04] MEDS: FERROUS SULFATE 325 MG TABLET. PO SCH ×2 (09:03→17:05)
[2021-07-04] MEDS: CALCIUM CARBONATE 500 MG TABLET PO SCH (09:03)
[2021-07-04] MEDS: MULTIVITAMIN with MINERAL TABLET. PO SCH (09:09)
[2021-07-04 10:15] LABS: BASO # 0.1 x10^3/uL (0.0-0.2); BASO % 1 % (0-3); EOS # 0.6 x10^3/uL (0.0-0.7); EOS % 8 % (0-3); HEMATOCRIT 29.1 % (36.0-47.0); HEMOGLOBIN 9.5 g/dL (12.0-15.5); LYMPH # 1.7 x10^3/uL (1.0-4.8); LYMPH % 24 % (24-48); MEAN CORPUSCULAR HEMOGLOBIN 23 pg (25-35); MEAN CORPUSCULAR HGB CONC 33 g/dL (31-37); MEAN CORPUSCULAR VOLUME 71 fL (79-100); MONO # 0.3 x10^3/uL (0.0-1.1); MONO % 4 % (0-9); NEUT # 4.4 x10^3/uL (1.8-7.7); NEUT % 62 % (31-73); PLATELET COUNT 464 x10^3/uL (140-400); RED BLOOD COUNT 4.09 x10^6/uL (3.50-5.40); RED CELL DISTRIBUTION WIDTH 17.4 % (11.5-14.5)
[2021-07-04 10:38] LABS: ALBUMIN 1.8 g/dL (3.4-5.0); ALBUMIN/GLOBULIN RATIO 0.3 (1.0-1.7); CALCIUM 8.2 mg/dL (8.5-10.1); CREATININE 0.7 mg/dL (0.6-1.0); GFR 82.5; POTASSIUM 3.3 mmol/L (3.5-5.1); TOTAL BILIRUBIN 0.3 mg/dL (0.2-1.0); TOTAL PROTEIN 7.4 g/dL (6.4-8.2)
[2021-07-04 11:00] VITALS: BP 117/61
--- NOTE | 2021-07-04 12:04 | PDOC ---
[employer] PROGRESS NOTE Date of Service DOS: DATE: 07/04/21 TIME: 12:02 Chief Complaint Chief Complaint Progressive Weakness - possibly AMSAN per neurology assessment Overactive bladder FTT (failure to thrive) in adult Liver cyst Gastric ulcer LE tingling - axonal neuropathy. Neurology has offered low dose gabapentin Loss of appetite - still low, offered stimulant, she is thinking about it. FEN - General diet FULL CODE Dispo - inpatient, will most definitely need acute rehab or SNF when discharge planning should begin which could happen as soon as 07/04/2021 History of Present Illness History of Present Illness Patient is a 70-year-old female presented to the emergency room today due to 3- month history of weakness. Patient says that things started late January early March 2021. She noticed she was feeling weaker than usual as she had been previously walking at least a mile a day and started struggling to do that. She also noticed food was not tasting very good so she decreased appetite. Says she has lost about 20 to 25 pounds over the course of the summer. Went to her primary care physician who noticed on lab work she was anemic and was iron deficient. Is secondary to a GI doctor to evaluate for any bleeding. She had an EGD performed by Dr. Gambino who found gastritis along with gastric ulcers. Says she was placed on sucralfate after this. Does report she had been having some diarrhea prior to being placed on sucralfate and it has helps this. Says she was placed on iron as well by her primary care physician. She was supposed to have an EUS at [facility] for pancreatic and hepatic cysts as well. Also saw a physical therapist 1 time who recommended she use a walker and says she has been walking "funny" ever since. 06/26: Patient came back from lumbar puncture procedure awake and alert. NAD. Patient is talkative. Patient is on room air. Patient complains of fatigue which progressed 06/27: CRP 111. Chart Reviewed. Pt was seen and examined. Discussed with RN. Pt is talkative about her hx. 06/28: Patient seen and examined. Feeling more weak, having nausea and vomiting and 2 episodes of fecal incontinence 06/29: Afebrile. Feeling more weak. She says after speaking with her sister she does not want to take prednisone today. EMGs with neurology today showed axonal slowing in sensory and motor distribution. 06/30: Afebrile. Starting IViG per neurology today for presumptive AMSAN after elevated IgG synthesis rate was found in CSF. Feeling weak, in better spirits. Appreciative of Dr. Carmona discussing with her niece 07/01: Afebrile. Improvement of weakness. Complaining of tingling. Pain and spasming of her legs overnight after floating her heels. She still does not have appetite and is forcing herself to eat. No pain. No CP or SOB. Has itching but notes this has been going on since December. Tolerated IVIG well. 07/02: Afebrile. 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 Also suspicious for inflammatory process, given elevated CRP. Addressed patient and sisters que stions and concerns to the best my ability. 07/03: Afebrile. Appetite is about the same. She has had a couple episodes of fecal incontinence but notes she was trying to pass gas. Motor strength is a little improved and sensation is about the same but no further loss of sensation. 07/04: Afebrile. Eating almost 100% of meals, cannot finish she states due to food allergies. Strength is improving, c/o right toes tingling. No GI complaints. Getting dose #5 IVIG currently Vitals/I&O Vitals/I&O: Vital Signs Date Time Temp Pulse Resp B/P (MAP) Pulse Ox O2 Delivery O2 Flow Rate FiO2 07/04/21 07:00 98.3 89 19 114/56 (75) 95 Room Air 98.3 I & O 07/03/21 07/03/21 07/04/21 15:00 23:00 07:00 Intake Total 740 ml 580 ml Output Total 3000 ml Balance 740 ml 580 ml -3000 ml Physical Exam Physical Exam: Rice Catheter bag on bedside, straw colored, small volume Alert and talkative Neuro: 4/5 strength to L dorsiflexion/plantar flexion 4/5 strength to L knee extension 3/5 strength to R dorsiflexion/plantar flexion 3/5 strength to R knee extension 3/5 senior net c developer strength BL Appreciable fatigue with repetition of elbow flexion BL Cutaneous innervation intact to L4-S1 dermatomes BL with no obvious detriments 1+ Achilles DTR BL No obvious loss of tone General: Alert, Oriented X3, Cooperative, No acute distress Heart: Regular rate, Normal S1, Normal S2 Lungs: Clear Abdomen: Soft, No tenderness, No hepatosplenomegaly Extremities: No clubbing, No cyanosis, No edema, No tenderness/swelling Skin: No rashes, No significant lesion Labs Labs: Laboratory Tests Test 07/03/21 22:10 07/04/21 09:14 SARS-CoV-2 Antigen (Rapid) Negative (NEGATIVE) White Blood Count 7.0 x10^3/uL (4.0-11.0) Red Blood Count 4.09 x10^6/uL (3.50-5.40) Hemoglobin 9.5 g/dL (12.0-15.5) Hematocrit 29.1 % (36.0-47.0) Mean Corpuscular Volume 71 fL (79-100) Mean Corpuscular Hemoglobin 23 pg (25-35) Mean Corpuscular Hemoglobin Concent 33 g/dL (31-37) Red Cell Distribution Width 17.4 % (11.5-14.5) Platelet Count 464 x10^3/uL (140-400) Neutrophils (%) (Auto) 62 % (31-73) Lymphocytes (%) (Auto) 24 % (24-48) Monocytes (%) (Auto) 4 % (0-9) Eosinophils (%) (Auto) 8 % (0-3) Basophils (%) (Auto) 1 % (0-3) Neutrophils # (Auto) 4.4 x10^3/uL (1.8-7.7) Lymphocytes # (Auto) 1.7 x10^3/uL (1.0-4.8) Monocytes # (Auto) 0.3 x10^3/uL (0.0-1.1) Eosinophils # (Auto) 0.6 x10^3/uL (0.0-0.7) Basophils # (Auto) 0.1 x10^3/uL (0.0-0.2) Sodium Level 136 mmol/L (136-145) Potassium Level 3.3 mmol/L (3.5-5.1) Chloride Level 102 mmol/L (98-107) Carbon Dioxide Level 26 mmol/L (21-32) Anion Gap 8 (6-14) Blood Urea Nitrogen 18 mg/dL (7-20) Creatinine 0.7 mg/dL (0.6-1.0) Estimated GFR (Cockcroft-Gault) 82.5 BUN/Creatinine Ratio 26 (6-20) Glucose Level 133 mg/dL (70-99) Calcium Level 8.2 mg/dL (8.5-10.1) Total Bilirubin 0.3 mg/dL (0.2-1.0) Aspartate Amino Transf (AST/SGOT) 11 U/L (15-37) Alanine Aminotransferase (ALT/SGPT) 13 U/L (14-59) Alkaline Phosphatase 76 U/L (46-116) Total Protein 7.4 g/dL (6.4-8.2) Albumin 1.8 g/dL (3.4-5.0) Albumin/Globulin Ratio 0.3 (1.0-1.7) Assessment and Plan Assessmemt and Plan Problems Medical Problems: (1) Generalized weakness Status: Acute (2) Liver cyst Status: Acute Comment Review of Relevant I have reviewed the following items genesis (where applicable) has been applied. Justifications for Admission Other Justification RAMILA VICENTE MD Jul 04, 2021 12:04
[2021-07-04] MEDS ORDERED: POTASSIUM BICARB 20 MEQ EFFERVESCENT TABLET. PO ONE (12:30)
[2021-07-04] MEDS: IMMUNE GLOBULIN,GAMMA(IGG) 10% 200 ML IV SCH (13:32)
[2021-07-04 15:00] VITALS: BP 119/54
[2021-07-04 19:00] VITALS: BP 116/60
[2021-07-04] MEDS: oxyCODONE/APAP 5/325 1 TAB TABLET PO PRN (20:18)
[2021-07-04 23:00] VITALS: BP 101/73
[2021-07-05] MEDS: IV NORMAL SALINE 1000ML BAG 1,000 ML IV SCH (00:53)
[2021-07-05 03:00] VITALS: BP 108/56
[2021-07-05 07:00] VITALS: BP 117/55
[2021-07-05] MEDS: OMEGA-3 FATTY ACIDS/FISH OIL 1,000 MG CAPSULE. PO SCH (10:08)
[2021-07-05] MEDS: MULTIVITAMIN with MINERAL TABLET. PO SCH (10:08)
[2021-07-05] MEDS: SUCRALFATE 1 GM TABLET. PO SCH ×4 (10:08→20:33)
[2021-07-05] MEDS: CALCIUM CARBONATE 500 MG TABLET PO SCH (10:08)
[2021-07-05] MEDS: FERROUS SULFATE 325 MG TABLET. PO SCH ×2 (10:08→16:56)
[2021-07-05] MEDS: BETHANECHOL CHLORIDE 10 MG TABLET. PO SCH ×3 (10:08→16:55)
[2021-07-05] MEDS: GABAPENTIN 300 MG CAPSULE. PO SCH ×2 (10:09→20:33)
[2021-07-05] MEDS: SENNOSIDES/DOCUSATE 8.6/50MG TABLET. PO SCH ×2 (10:09→20:32)
[2021-07-05] MEDS: PANTOPRAZOLE 40 MG TABLET.DR. PO SCH (10:09)
[2021-07-05 11:00] VITALS: BP 118/72
--- NOTE | 2021-07-05 13:59 | PDOC ---
[employer] PROGRESS NOTE Date of Service DOS: DATE: 07/05/21 TIME: 13:07 Chief Complaint Chief Complaint Progressive Weakness - AMSAN per neurology assessment. clinically improved with IVIG, likely this is the diagnosis. still with some autonomic symptoms, no respiratory decline. Overactive bladder FTT (failure to thrive) in adult Liver cyst - has outpatient GI follow up Gastric ulcer - on carafate, PPI. Sees Dr. Gambino outpatient LE tingling - axonal neuropathy. Neurology has offered low dose gabapentin Loss of appetite - still low, offered stimulant, she is thinking about it. FEN - General diet FULL CODE Dispo - inpatient, will most definitely need acute rehab or SNF. Will not need additional IVIG unless she has a relapse History of Present Illness History of Present Illness Patient is a 70-year-old female presented to the emergency room today due to 3- month history of weakness. Patient says that things started late January early March 2021. She noticed she was feeling weaker than usual as she had been previously walking at least a mile a day and started struggling to do that. She also noticed food was not tasting very good so she decreased appetite. Says she has lost about 20 to 25 pounds over the course of the summer. Went to her primary care physician who noticed on lab work she was anemic and was iron deficient. Is secondary to a GI doctor to evaluate for any bleeding. She had an EGD performed by Dr. Gambino who found gastritis along with gastric ulcers. Says she was placed on sucralfate after this. Does report she had been having some diarrhea prior to being placed on sucralfate and it has helps this. Says she was placed on iron as well by her primary care physician. She was supposed to have an EUS at [facility] for pancreatic and hepatic cysts as well. Also saw a physical therapist 1 time who recommended she use a walker and says she has been walking "funny" ever since. 06/26: Patient came back from lumbar puncture procedure awake and alert. NAD. Patient is talkative. Patient is on room air. Patient complains of fatigue which progressed 06/27: CRP 111. Chart Reviewed. Pt was seen and examined. Discussed with RN. Pt is talkative about her hx. 06/28: Patient seen and examined. Feeling more weak, having nausea and vomiting and 2 episodes of fecal incontinence 06/29: Afebrile. Feeling more weak. She says after speaking with her sister she does not want to take prednisone today. EMGs with neurology today showed axonal slowing in sensory and motor distribution. 06/30: Afebrile. Starting IViG per neurology today for presumptive AMSAN after elevated IgG synthesis rate was found in CSF. Feeling weak, in better spirits. Appreciative of Dr. Carmona discussing with her niece 07/01: Afebrile. Improvement of weakness. Complaining of tingling. Pain and spasming of her legs overnight after floating her heels. She still does not have appetite and is forcing herself to eat. No pain. No CP or SOB. Has itching but notes this has been going on since December. Tolerated IVIG well. 07/02: Afebrile. 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 Also suspicious for inflammatory process, given elevated CRP. Addressed patient and sisters questions and concerns to the best my ability. 07/03: Afebrile. Appetite is about the same. She has had a couple episodes of fecal incontinence but notes she was trying to pass gas. Motor strength is a little improved and sensation is about the same but no further loss of sensation. 07/04: Afebrile. Eating almost 100% of meals, cannot finish she states due to food allergies. Strength is improving, c/o right toes tingling. No GI complaints. Getting dose #5 IVIG currently Afebrile. She has noticed the weakness in her hands has almost resolved. Her sensation is improving though she still has cramping of her legs despite 300 mg twice daily gabapentin and as needed 100 mg twice daily I offered increase the as needed dosing to 300 mg twice daily until reassessment by neurology is available. Symptomatically still with some difficulty with bowel control though she does not feel it is worsened nor did she feel her urinary control is worsening though she still has a Rice catheter which she is interested in discontinuing. Vitals/I&O Vitals/I&O: Vital Signs Date Time Temp Pulse Resp B/P (MAP) Pulse Ox O2 Delivery O2 Flow Rate FiO2 07/05/21 11:00 97.9 89 18 118/72 (87) 96 Room Air 97.9 I & O 07/04/21 07/04/21 07/05/21 15:00 23:00 07:00 Intake Total 240 ml 120 ml 0 ml Output Total 1150 ml 950 ml 2000 ml Balance -910 ml -830 ml -2000 ml Physical Exam Physical Exam: Rice Catheter bag on bedside, straw colored, small volume Alert and talkative Neuro: 4/5 strength to L dorsiflexion/plantar flexion 4/5 strength to L knee extension 3/5 strength to R dorsiflexion/plantar flexion 3/5 strength to R knee extension 3/5 chairman of the board strength BL Appreciable fatigue with repetition of elbow flexion BL Cutaneous innervation intact to L4-S1 dermatomes BL with no obvious detriments 1+ Achilles DTR BL No obvious loss of tone General: Alert, Oriented X3, Cooperative, No acute distress Heart: Regular rate, Normal S1, Normal S2 Lungs: Clear Abdomen: Soft, No tenderness, No hepatosplenomegaly Extremities: No clubbing, No cyanosis, No edema, No tenderness/swelling Skin: No rashes, No significant lesion Assessment and Plan Assessmemt and Plan Problems Medical Problems: (1) Generalized weakness Status: Acute (2) Liver cyst Status: Acute Comment Review of Relevant I have reviewed the following items genesis (where applicable) has been applied. Justifications for Admission Other Justification RAMILA VICENTE MD Jul 05, 2021 13:59
[2021-07-05] MEDS ORDERED: POTASSIUM BICARB 20 MEQ EFFERVESCENT TABLET. PO ONE (14:00)
[2021-07-05] MEDS ORDERED: GABAPENTIN 300 MG CAPSULE. PO PRN (14:15)
[2021-07-05 15:00] VITALS: BP 107/51
[2021-07-05 19:00] VITALS: BP 120/55
[2021-07-05] MEDS: oxyCODONE/APAP 5/325 1 TAB TABLET PO PRN (20:33)
[2021-07-05 23:00] VITALS: BP 113/58
[2021-07-06 02:28] VITALS: BP 118/64
[2021-07-06 07:00] VITALS: BP 111/64
[2021-07-06 08:50] LABS: C-REACTIVE PROTEIN 91.5 mg/L (0-3.3); CALCIUM 8.8 mg/dL (8.5-10.1); CREATININE 0.7 mg/dL (0.6-1.0); GFR 82.5; MAGNESIUM 2.2 mg/dL (1.8-2.4); POTASSIUM 4.2 mmol/L (3.5-5.1)
--- NOTE | 2021-07-06 08:55 | PDOC ---
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 The elevated sedimentation rate and CRP imply there is some sort of other inflammatory process. She is better today Note elevated free kappa and lambda light chain levels, oncology to reevaluate Note normal ANCA Restless legs, better with higher gabapentin dose. No adverse effects Mild white matter disease on the brain MRI, mild degenerative cervical spine changes on the cervical MRI CT chest abdomen pelvis negative for neoplasm Plan She has finished 5 courses of intravenous immunoglobulin, 0.4 g/kg daily Continue gabapentin 300 mg twice daily Ready to transfer to inpatient rehab after IVIG course completed. Aim for discharge to rehab on 07/06 Follow-up with me in 4-6 weeks Subjective Denies pain, restless legs controlled, hands are stronger Objective Vital Signs Date Time Temp Pulse Resp B/P (MAP) Pulse Ox O2 Delivery O2 Flow Rate FiO2 07/06/21 02:28 99.2 91 17 118/64 (82) 96 Room Air 99.2 Intake and Output 07/06/21 07:00 Intake Total 980 ml Output Total 2400 ml Balance -1420 ml Intake Oral 980 ml Output Urine Total 2400 ml PHYSICAL EXAM Alert. Oriented to time, place and person. PERRL. EOMI. CN: no focal findings. Muscle tone: normal. Muscle strength: 5-/5, right shoulder limited by arthritis DTR: 0-1+ Plantar reflex: flexor Gait: not examined in bed. Sensory exam: Stocking-glove loss. No cerebellar signs elicited. Review of Relevant I have reviewed the following items genesis (where applicable) has been applied. Labs Laboratory Tests Test 07/04/21 09:14 White Blood Count 7.0 x10^3/uL (4.0-11.0) Red Blood Count 4.09 x10^6/uL (3.50-5.40) Hemoglobin 9.5 g/dL (12.0-15.5) Hematocrit 29.1 % (36.0-47.0) Mean Corpuscular Volume 71 fL (79-100) Mean Corpuscular Hemoglobin 23 pg (25-35) Mean Corpuscular Hemoglobin Concent 33 g/dL (31-37) Red Cell Distribution Width 17.4 % (11.5-14.5) Platelet Count 464 x10^3/uL (140-400) Neutrophils (%) (Auto) 62 % (31-73) Lymphocytes (%) (Auto) 24 % (24-48) Monocytes (%) (Auto) 4 % (0-9) Eosinophils (%) (Auto) 8 % (0-3) Basophils (%) (Auto) 1 % (0-3) Neutrophils # (Auto) 4.4 x10^3/uL (1.8-7.7) Lymphocytes # (Auto) 1.7 x10^3/uL (1.0-4.8) Monocytes # (Auto) 0.3 x10^3/uL (0.0-1.1) Eosinophils # (Auto) 0.6 x10^3/uL (0.0-0.7) Basophils # (Auto) 0.1 x10^3/uL (0.0-0.2) Sodium Level 136 mmol/L (136-145) Potassium Level 3.3 mmol/L (3.5-5.1) Chloride Level 102 mmol/L (98-107) Carbon Dioxide Level 26 mmol/L (21-32) Anion Gap 8 (6-14) Blood Urea Nitrogen 18 mg/dL (7-20) Creatinine 0.7 mg/dL (0.6-1.0) Estimated GFR (Cockcroft-Gault) 82.5 BUN/Creatinine Ratio 26 (6-20) Glucose Level 133 mg/dL (70-99) Calcium Level 8.2 mg/dL (8.5-10.1) Total Bilirubin 0.3 mg/dL (0.2-1.0) Aspartate Amino Transf (AST/SGOT) 11 U/L (15-37) Alanine Aminotransferase (ALT/SGPT) 13 U/L (14-59) Alkaline Phosphatase 76 U/L (46-116) Total Protein 7.4 g/dL (6.4-8.2) Albumin 1.8 g/dL (3.4-5.0) Albumin/Globulin Ratio 0.3 (1.0-1.7) Microbiology 06/26/21 CSF Gram Stain - Final, Complete 06/24/21 Urine Culture - Final, Complete Medications Current Medications Iohexol (Omnipaque 300 Mg/ml) 75 ml 1X ONCE IV Last administered on 06/24/21at 17:39; Start 06/24/21 at 17:30; Stop 06/24/21 at 17:31; Status DC Info (CONTRAST GIVEN -- Rx MONITORING) 1 each PRN DAILY PRN MC SEE COMMENTS; Start 06/24/21 at 17:30; Stop 06/26/21 at 17:29; Status DC Potassium Chloride (Klor-Con) 40 meq 1X ONCE PO Last administered on 06/24/21at 21:19; Start 06/24/21 at 18:15; Stop 06/24/21 at 18:16; Status DC Ondansetron HCl (Zofran) 4 mg PRN Q6HRS PRN IVP NAUSEA/VOMITING Last administered on 06/29/21at 17:12; Start 06/24/21 at 18:45 Calcium Carbonate/ Glycine (Tums) 500 mg PRN Q3HRS PRN PO UPSET STOMACH; Start 06/24/21 at 18:45 Info (Non-Icu Electrolyte Protocol) 1 ea PRN DAILY PRN MC SEE COMMENTS; Start 06/24/21 at 18:45 Oxycodone/ Acetaminophen (Percocet 5/325) 1 tab PRN Q4HRS PRN PO MILD PAIN, 1ST CHOICE; Start 06/24/21 at 18:45 Oxycodone/ Acetaminophen (Percocet 5/325) 2 tab PRN Q4HRS PRN PO MODERATE PAIN, SEVERE PAIN Last administered on 07/05/21at 20:33; Start 06/24/21 at 18:45 Acetaminophen (Tylenol) 650 mg PRN Q6HRS PRN PO Headaches, Temp > 101.5F; Start 06/24/21 at 18:45; Stop 06/25/21 at 16:06; Status DC Senna/Docusate Sodium (Senna Plus) 1 tab BID PO Last administered on 07/05/21at 20:32; Start 06/24/21 at 21:00 Heparin Sodium (Porcine) (Heparin Sodium) 5,000 unit Q12HR SQ Last administered on 06/25/21at 21:02; Start 06/24/21 at 21:00; Stop 06/26/21 at 08:37; Status DC Pantoprazole Sodium (Protonix) 40 mg DAILYAC PO Last administered on 06/25/21at 06:21; Start 06/24/21 at 20:30; Stop 06/25/21 at 16:06; Status DC Sucralfate (Carafate) 1 gm DAILY PO Last administered on 06/25/21at 09:25; Start 06/25/21 at 09:00; Stop 06/25/21 at 16:05; Status DC Influenza Virus Vaccine Quadrival (Flulaval Quad [id number] Syringe) 0.5 ml ONCE ONCE VAX IM ; Start 06/25/21 at 09:00; Stop 06/25/21 at 09:01; Status DC Bethanechol Chloride (Urecholine) 10 mg TIDAC PO Last administered on 07/05/21at 16:55; Start 06/25/21 at 16:30 Acetaminophen (Tylenol) 650 mg PRN Q6HRS PRN PO MILD PAIN 1-3 Last administered on 06/28/21at 04:26; Start 06/25/21 at 16:15 Acetaminophen/ Codeine Phosphate (Tylenol #3) 1 tab PRN Q6HRS PRN PO MODERATE PAIN, 2ND CHOICE; Start 06/25/21 at 16:15 Calcium Carbonate/ Glycine (Oscal) 1,000 mg DAILY PO Last administered on 07/05/21 10:08; Start 06/26/21 at 09:00 Ferrous Sulfate (Feosol) 325 mg BIDWMEALS PO Last administered on 07/05/21at 16:56; Start 06/25/21 at 17:00 Fish Oil (Fish Oil) 1,000 mg DAILY PO Last administered on 07/05/21at 10:08; Start 06/26/21 at 09:00 Pantoprazole Sodium (Protonix) 40 mg DAILYAC PO Last administered on 07/05/21 10:09; Start 06/26/21 at 07:30 Sucralfate (Carafate) 1 gm QIDACHS PO Last administered on 07/05/21at 20:33; Start 06/25/21 at 16:30 Multivitamins (Thera M Plus) 1 tab DAILY PO Last administered on 07/05/21at 10:08; Start 06/26/21 at 09:00 Lidocaine HCl (Lidocaine 1% 20ml Vial) 20 ml 1X ONCE INJ Last administered on 06/26/21at 11:45; Start 06/26/21 at 10:15; Stop 06/26/21 at 10:16; Status DC Prednisone (Prednisone) 15 mg DAILY PO ; Start 06/28/21 at 16:00; Stop 07/01/21 at 08:27; Status DC Sodium Chloride 1,000 ml @ 75 mls/hr [id number] IV Last administered on 07/05/21at 00:53; Start 06/29/21 at 13:30; Stop 07/05/21 at 13:59; Status DC Influenza Virus Vaccine Quadrival (Flulaval Quad [id number] Syringe) 0.5 ml ONCE ONCE VAX IM ; Start 06/29/21 at 13:45; Stop 06/29/21 at 13:46; Status DC Immune Globulin 200 ml @ 0 mls/hr DAILY IV Last administered on 07/04/21at 13:32; Start 06/30/21 at 09:00; Stop 07/05/21 at 08:59; Status DC Iohexol (Omnipaque 240 Mg/ml) 50 ml 1X ONCE PO Last administered on 06/30/21at 10:00; Start 06/30/21 at 10:00; Stop 06/30/21 at 10:01; Status DC Iohexol (Omnipaque 300 Mg/ml) 75 ml 1X ONCE IV Last administered on 06/30/21at 10:00; Start 06/30/21 at 10:00; Stop 06/30/21 at 10:01; Status DC Info (CONTRAST GIVEN -- Rx MONITORING) 1 each PRN DAILY PRN MC SEE COMMENTS; Start 06/30/21 at 10:00; Stop 07/02/21 at 09:59; Status DC Gabapentin (Neurontin) 100 mg BID PRN PO MUSCLE SPASMS Last administered on 07/02/21at 08:48; Start 07/01/21 at 10:30; Stop 07/02/21 at 13:29; Status DC Gabapentin (Neurontin) 100 mg QHS PO Last administered on 07/01/21at 20:47; Start 07/01/21 at 21:00; Stop 07/02/21 at 13:27; Status DC Gabapentin (Neurontin) 300 mg BID PO Last administered on 07/05/21at 20:33; Start 07/02/21 at 21:00 Gabapentin (Neurontin) 100 mg PRN BID PRN PO MUSCLE SPASMS Last administered on 07/03/21at 08:20; Start 07/02/21 at 13:30; Stop 07/05/21 at 13:54; Status DC Potassium Bicarbonate (Potassium Effervescent Tablet) 40 meq 1X ONCE PO Last administered on 07/04/21at 13:33; Start 07/04/21 at 12:30; Stop 07/04/21 at 12:31; Status DC Gabapentin (Neurontin) 300 mg PRN BID PRN PO MUSCLE SPASMS; Start 07/05/21 at 14:15 Potassium Bicarbonate (Potassium Effervescent Tablet) 40 meq 1X ONCE PO Last administered on 07/05/21at 15:12; Start 07/05/21 at 14:00; Stop 07/05/21 at 14:11; Status DC Active Scripts Active Acetaminophen-Cod #3 Tablet (Acetaminophen/Codeine Phosphate) 1 Each Tablet 1 Tab PO PRN Q6HRS PRN 3 Days Reported Fish Oil 1,000 Mg Softgel ([place]-3 Fatty Acids/Fish Oil) 1 Each Capsule 2 Cap PO DAILY 30 Days Multi-Vitamin Daily (Multivitamin) 1 Each Tablet 1 Tab PO DAILY 30 Days Calcium (Calcium Carbonate) 500 Mg Tablet 2 Tab PO DAILY 30 Days Tylenol (Acetaminophen) 325 Mg Tablet 650 Mg PO Q6HRS PRN Ferrous Sulfate 325 Mg Tablet 1 Tab PO BID Pantoprazole Sodium (Pantoprazole Sodium) 40 Mg Tablet.dr 40 Mg PO DAILYAC Carafate (Sucralfate) 1 Gm Tablet 1 Tab PO QID 30 Days Vitals/I & O Vital Sign - Last 24 Hours 07/05/21 07/05/21 07/05/21 07/05/21 11:00 15:00 19:00 19:51 Temp 97.9 99.0 97.5 97.9 99.0 97.5 Pulse 89 88 102 Resp 18 17 18 B/P (MAP) 118/72 (87) 107/51 (69) 120/55 (76) Pulse Ox 96 98 97 O2 Delivery Room Air Room Air Room Air Room Air 07/05/21 07/05/21 07/05/21 07/06/21 20:33 21:03 23:00 02:28 Temp 97.5 99.2 97.5 99.2 Pulse 89 91 Resp 18 18 17 17 B/P (MAP) 113/58 (76) 118/64 (82) Pulse Ox 98 98 98 96 O2 Delivery Room Air Room Air Room Air Room Air Intake and Output 07/05/21 07/05/21 07/06/21 15:00 23:00 07:00 Intake Total 440 ml 540 ml 0 ml Output Total 1400 ml 1000 ml Balance 440 ml -860 ml -1000 ml Justicifation of Admission Dx: Justifications for Admission: Justification of Admission Dx: Yes LAURA HUERTA MD Jul 06, 2021 08:55
[2021-07-06] MEDS: SUCRALFATE 1 GM TABLET. PO SCH ×2 (09:25→14:16)
[2021-07-06] MEDS: SENNOSIDES/DOCUSATE 8.6/50MG TABLET. PO SCH (09:25)
[2021-07-06] MEDS: MULTIVITAMIN with MINERAL TABLET. PO SCH (09:25)
[2021-07-06] MEDS: OMEGA-3 FATTY ACIDS/FISH OIL 1,000 MG CAPSULE. PO SCH (09:25)
[2021-07-06] MEDS: FERROUS SULFATE 325 MG TABLET. PO SCH (09:25)
[2021-07-06] MEDS: CALCIUM CARBONATE 500 MG TABLET PO SCH (09:26)
[2021-07-06] MEDS: GABAPENTIN 300 MG CAPSULE. PO SCH (09:26)
[2021-07-06] MEDS: PANTOPRAZOLE 40 MG TABLET.DR. PO SCH (09:26)
[2021-07-06] MEDS: BETHANECHOL CHLORIDE 10 MG TABLET. PO SCH ×2 (09:26→14:16)
--- NOTE | 2021-07-06 09:45 | SNU/HH DC ---
DISCHARGE ORDERS DISCHARGE INFORMATION: DISCHARGE DATE: Jul 06, 2021 FINAL DIAGNOSIS Problems Medical Problems: (1) Generalized weakness Status: Acute (2) Liver cyst Status: Acute CONDITION ON DISCHARGE: Stable CODE STATUS: Code Status: Full HALFWAY: SNF STAY <30 DAYS: Yes POST DISCHARGE ORDERS: ACTIVITY ORDERS: Activity as tolerated WEIGHT BEARING STATUS: As tolerated DIET AFTER DISCHARGE: Regular WOUND/INCISION CARE: Keep wound/cast CDI CHECKS AFTER DISCHARGE: CHECKS AFTER DISCHARGE: Check blood press - daily, Check your Temp as needed TREATMENT/EQUIPMENT ORDERS: ADAPTIVE EQUIPMENT NEEDED: Walker Physical Therapy For: Evalulation/Treatment Occupational Therapy For: Evaluation/Treatment DISCHARGE MEDICATIONS: Home Meds Active Scripts Acetaminophen With Codeine (ACETAMINOPHEN-COD #3 TABLET) 1 Each Tablet, 1 TAB PO PRN Q6HRS PRN for PAIN for 3 Days, #10 TAB Prov:IVONNE KURTZ MD 04/04/21 Reported Medications [place]-3 Fatty Acids/Fish Oil (FISH OIL 1,000 MG SOFTGEL) 1 Each Capsule, 2 CAP PO DAILY for supplement for 30 Days, #60 CAP 0 Refills 06/25/21 Multivitamin (MULTI-VITAMIN DAILY) 1 Each Tablet, 1 TAB PO DAILY for supplement for 30 Days, #30 TAB 0 Refills 06/25/21 Calcium Carbonate (CALCIUM) 500 Mg Tablet, 2 TAB PO DAILY for supplement for 30 Days, #60 TAB 0 Refills 06/25/21 Acetaminophen (TYLENOL) 325 Mg Tablet, 650 MG PO Q6HRS PRN for PAIN, TAB 06/25/21 Ferrous Sulfate (FERROUS SULFATE) 325 Mg Tablet, 1 TAB PO BID for anemia, #60 TAB 3 Refills 06/25/21 Pantoprazole Sodium (PANTOPRAZOLE SODIUM ) 40 Mg Tablet.dr, 40 MG PO DAILYAC for GERD, TAB 06/25/21 Sucralfate (CARAFATE) 1 Gm Tablet, 1 TAB PO QID for gastritis/ulcer for 30 Days, #120 TAB 0 Refills 06/25/21 RAMILA ANDRADE MD Jul 06, 2021 09:45
--- NOTE | 2021-07-06 10:13 | PDOC3 ---
[facility]-Discharge Summary Date of Admission: Date of Admission: Jun 24, 2021 Date of Discharge: Date of Discharge: Jul 06, 2021 Admission Diagnosis: Problems: (1) Weakness (2) FTT (failure to thrive) in adult (3) Liver cyst Discharge Diagnosis: Discharge Diagnosis: Same Consults: Consults: Neurology Hospital Course: Hospital Course: Chief Complaint Progressive Weakness - AMSAN per neurology assessment. clinically improved with IVIG, likely this is the diagnosis. still with some autonomic symptoms, no respiratory decline. Overactive bladder FTT (failure to thrive) in adult Liver cyst - has outpatient GI follow up Gastric ulcer - on carafate, PPI. Sees Dr. Gambino outpatient LE tingling - axonal neuropathy. Neurology has offered low dose gabapentin Loss of appetite - still low, offered stimulant, she is thinking about it. FEN - General diet FULL CODE Dispo - inpatient, will most definitely need acute rehab or SNF. Will not need additional IVIG unless she has a relapse History of Present Illness History of Present Illness Patient is a 70-year-old female presented to the emergency room today due to 3- month history of weakness. Patient says that things started late January early March 2021. She noticed she was feeling weaker than usual as she had been previously walking at least a mile a day and started struggling to do that. She also noticed food was not tasting very good so she decreased appetite. Says she has lost about 20 to 25 pounds over the course of the summer. Went to her primary care physician who noticed on lab work she was anemic and was iron deficient. Is secondary to a GI doctor to evaluate for any bleeding. She had an EGD performed by Dr. Gambino who found gastritis along with gastric ulcers. Says she was placed on sucralfate after this. Does report she had been having some diarrhea prior to being placed on sucralfate and it has helps this. Says she was placed on iron as well by her primary care physician. She was supposed to have an EUS at [facility] for pancreatic and hepatic cysts as well. Also saw a physical therapist 1 time who recommended she use a walker and says she has been walking "funny" ever since. 06/26: Patient came back from lumbar puncture procedure awake and alert. NAD. Patient is talkative. Patient is on room air. Patient complains of fatigue which progressed 06/27: CRP 111. Chart Reviewed. Pt was seen and examined. Discussed with RN. Pt is talkative about her hx. 06/28: Patient seen and examined. Feeling more weak, having nausea and vomiting and 2 episodes of fecal incontinence 06/29: Afebrile. Feeling more weak. She says after speaking with her sister she does not want to take prednisone today. EMGs with neurology today showed axonal slowing in sensory and motor distribution. 06/30: Afebrile. Starting IViG per neurology today for presumptive AMSAN after elevated IgG synthesis rate was found in CSF. Feeling weak, in better spirits. Appreciative of Dr. Carmona discussing with her niece 07/01: Afebrile. Improvement of weakness. Complaining of tingling. Pain and spasming of her legs overnight after floating her heels. She still does not have appetite and is forcing herself to eat. No pain. No CP or SOB. Has itching but notes this has been going on since December. Tolerated IVIG well. 07/02: Afebrile. 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 Also suspicious for inflammatory process, given elevated CRP. Addressed patient and sisters questions and concerns to the best my ability. 07/03: Afebrile. Appetite is about the same. She has had a couple episodes of fecal incontinence but notes she was trying to pass gas. Motor strength is a little improved and sensation is about the same but no further loss of sensation. 07/04: Afebrile. Eating almost 100% of meals, cannot finish she states due to food allergies. Strength is improving, c/o right toes tingling. No GI complaints. Getting dose #5 IVIG currently 07/05 Afebrile. She has noticed the weakness in her hands has almost resolved. Her sensation is improving though she still has cramping of her legs despite 300 mg twice daily gabapentin and as needed 100 mg twice daily I offered increase the as needed dosing to 300 mg twice daily until reassessment by neurology is available. Symptomatically still with some difficulty with bowel control though she does not feel it is worsened nor did she feel her urinary control is worsening though she still has a Rice catheter which she is interested in discontinuing. 07/06 Patient seen and evaluated at bedside. No acute clinical changes and is doing well this morning. Reviewed neurology notes. She is ready for discharge. She has completed her IVIG and no longer requires any doses. Disposition: Disposition/Orders: D/C to Another Facility Activity: Activity: Resume previous activity Diet: Diet: other (As tolerated) Medications: Home Meds Active Scripts Acetaminophen With Codeine (ACETAMINOPHEN-COD #3 TABLET) 1 Each Tablet, 1 TAB PO PRN Q6HRS PRN for PAIN for 3 Days, #10 TAB Prov:IVONNE KURTZ MD 04/04/21 Reported Medications [place]-3 Fatty Acids/Fish Oil (FISH OIL 1,000 MG SOFTGEL) 1 Each Capsule, 2 CAP PO DAILY for supplement for 30 Days, #60 CAP 0 Refills 06/25/21 Multivitamin (MULTI-VITAMIN DAILY) 1 Each Tablet, 1 TAB PO DAILY for supplement for 30 Days, #30 TAB 0 Refills 06/25/21 Calcium Carbonate (CALCIUM) 500 Mg Tablet, 2 TAB PO DAILY for supplement for 30 Days, #60 TAB 0 Refills 06/25/21 Acetaminophen (TYLENOL) 325 Mg Tablet, 650 MG PO Q6HRS PRN for PAIN, TAB 06/25/21 Ferrous Sulfate (FERROUS SULFATE) 325 Mg Tablet, 1 TAB PO BID for anemia, #60 TAB 3 Refills 06/25/21 Pantoprazole Sodium (PANTOPRAZOLE SODIUM ) 40 Mg Tablet.dr, 40 MG PO DAILYAC for GERD, TAB 06/25/21 Sucralfate (CARAFATE) 1 Gm Tablet, 1 TAB PO QID for gastritis/ulcer for 30 Days, #120 TAB 0 Refills 06/25/21 Scheduled Calcium Carbonate (Calcium), 2 TAB PO DAILY, (Reported) Ferrous Sulfate (Ferrous Sulfate), 1 TAB PO BID, (Reported) Multivitamin (Multi-Vitamin Daily), 1 TAB PO DAILY, (Reported) [place]-3 Fatty Acids/Fish Oil (Fish Oil 1,000 Mg Softgel), 2 CAP PO DAILY, (Reported) Pantoprazole Sodium (Pantoprazole Sodium ), 40 MG PO DAILYAC, (Reported) Sucralfate (Carafate), 1 TAB PO QID, (Reported) Scheduled PRN Acetaminophen (Tylenol), 650 MG PO Q6HRS PRN for PAIN, (Reported) Acetaminophen With Codeine (Acetaminophen-Cod #3 Tablet), 1 TAB PO PRN Q6HRS PRN for PAIN Justicifation of Admission Dx: Justifications for Admission: Justification of Admission Dx: Yes RAMILA ANDRADE MD Jul 06, 2021 10:13
[2021-07-06] MEDS ORDERED: Bethanechol Chloride PO (10:16)
[2021-07-06] MEDS ORDERED: GABA300C18 PO (10:16)
[2021-07-06] MEDS ORDERED: OXYC1TAB15 PO (10:16)
[2021-07-06 11:00] VITALS: BP 104/68
--- NOTE | 2021-07-06 12:22 | NUR ---
ANA following. Discussed with RN, discharge orders faxed to [facility], awaiting transportation time. ANA will continue to follow. Addendum: 07/06/21 at 1402 by CAM PEREZ Transportation arranged for 1500 pickle solution maker by [facility]. RN notified.
== END 2021-07-06 16:20 | DRG 441 ==
LOC: ER 15:16 → 5 SOUTH 19:46
PROVIDERS: ADMIT Student in an Organized Health Care Education/Training Program; ATTEND Student in an Organized Health Care Education/Training Program
PROC: 009U3ZX Drainage of Spinal Canal, Percutaneous Approach, Diagnostic (ICD-10-PCS; principal; 2021-06-26)
PROC: B01B1ZZ Fluoroscopy of Spinal Cord using Low Osmolar Contrast (ICD-10-PCS; 2021-06-26)
DX: K76.89 Other specified diseases of liver (principal); E43 Unspecified severe protein-calorie malnutrition; G61.81 Chronic inflammatory demyelinating polyneuritis; D50.9 Iron deficiency anemia, unspecified; N32.81 Overactive bladder; D75.839 Thrombocytosis, unspecified; G25.81 Restless legs syndrome; I73.9 Peripheral vascular disease, unspecified; K25.9 Gastric ulcer, unspecified as acute or chronic, without hemorrhage or perforation; K29.70 Gastritis, unspecified, without bleeding; K80.20 Calculus of gallbladder without cholecystitis without obstruction; M19.90 Unspecified osteoarthritis, unspecified site; M48.02 Spinal stenosis, cervical region; R62.7 Adult failure to thrive; Z20.822 Contact with and (suspected) exposure to COVID-19; Z83.3 Family history of diabetes mellitus; Z87.11 Personal history of peptic ulcer disease; Z68.23 Body mass index [BMI] 23.0-23.9, adult
CPT/HCPCS: 36415; 62270; 70450; 70551; 71045; 71260; 72141; 74177; 80048; 80053; 80307; 81001; 82525; 82550; 82607; 82668; 82728; 82787; 82945; 83520; 83540; 83550; 83690; 83735; 83880; 83916; 84157; 84165; 84443; 84484; 85025; 85045; 85610; 85651; 86038; 86140; 86256; 87071; 87075; 87086; 87426; 89051; 93005; J1561; J1644; J2405; J3490; J7030; Q9966; Q9967; U0003; U0005; 97110-GO; 97110-GP; 97116-GP; 97530-GO; 97530-GP; 97535-GO; 99285-25; G0378

== ENCOUNTER → 2021-08-19 | Outpatient (CLI) | payer MEDICARE ==
[~2021-08-19] MED LIST changes: +ACET325T9 PO; +Bethanechol Chloride PO; +CALC500T30 PO; +FERR325T14 PO; +GABA300C18 PO; +MULT-246 PO; +OMEG1CAP50 PO; +OXYC1TAB15 PO; +PANT40TA77 PO; +SUCR1TAB35 PO
[2021-08-19 12:11] LABS: BASO # 0.1 x10^3/uL (0.0-0.2); BASO % 1 % (0-3); EOS # 0.3 x10^3/uL (0.0-0.7); EOS % 4 % (0-3); HEMATOCRIT 30.1 % (36.0-47.0); HEMOGLOBIN 9.5 g/dL (12.0-15.5); LYMPH # 1.8 x10^3/uL (1.0-4.8); LYMPH % 24 % (24-48); MEAN CORPUSCULAR HEMOGLOBIN 22 pg (25-35); MEAN CORPUSCULAR HGB CONC 32 g/dL (31-37); MEAN CORPUSCULAR VOLUME 70 fL (79-100); MONO # 0.5 x10^3/uL (0.0-1.1); MONO % 7 % (0-9); NEUT # 4.9 x10^3/uL (1.8-7.7); NEUT % 65 % (31-73); PLATELET COUNT 499 x10^3/uL (140-400); RED BLOOD COUNT 4.32 x10^6/uL (3.50-5.40); RED CELL DISTRIBUTION WIDTH 18.1 % (11.5-14.5); WHITE BLOOD COUNT 7.6 x10^3/uL (4.0-11.0)
[2021-08-19 12:15] LABS: CALCIUM 8.5 mg/dL (8.5-10.1); CREATININE 0.8 mg/dL (0.6-1.0); GFR 70.7; POTASSIUM 3.6 mmol/L (3.5-5.1)
[2021-08-19 12:21] LABS: ALBUMIN 2.5 g/dL (3.4-5.0); ALBUMIN/GLOBULIN RATIO 0.5 (1.0-1.7); TOTAL BILIRUBIN 0.3 mg/dL (0.2-1.0); TOTAL PROTEIN 7.4 g/dL (6.4-8.2)
[2021-08-19 13:08] LABS: HYPOCHROMIA PRESENT; MICROCYTOSIS PRESENT; PLT ESTIMATE INCREASED (ADEQUATE)
== END ==
LOC: ONCLAB 15:44
PROVIDERS: ATTEND Internal Medicine Hematology & Oncology
DX: D50.9 Iron deficiency anemia, unspecified (principal); D75.838 Other thrombocytosis
CPT/HCPCS: 36415; 80053; 82728; 82746; 83540; 83550; 85025

== ENCOUNTER → 2021-10-28 | Outpatient (CLI) | payer MEDICARE ==
[~2021-10-28] MED LIST changes: +IOHEXOL 240 MG/ML 50ML VIAL. PO ONE; +IOHEXOL 300 MG/ML 100ML VIAL. IV ONE
--- NOTE | 2021-10-29 08:48 | KCIC ---
EXAM: CT Abdomen and Pelvis with IV contrast CLINICAL HISTORY: Reason: Follow up liver and lymph node abnormalties on recent CT / Spl. Instruction s: 70mL Omni 300. Pt unable to raise arms. / History: . COMPARISON: 06/30/2021 TECHNIQUE: Helical CT of the abdomen and pelvis was performed following the administration of intrave nous contrast. Axial, coronal and sagittal reformatted images were generated. PQRS compliance statement - One or more of the following individualized dose reduction techniques wer e utilized for this study: 1. Automated exposure control 2. Adjustment of the mA and/or kV according to patient size 3. Use of iterative reconstruction technique FINDINGS: Lower Chest: Dependent opacities lower lobes and lingula likely atelectasis or scarring. Abdomen and Pelvis: 2.1 cm inferior right hepatic lobe cyst measures 9 Hounsfield units. 8 mm left hepatic hypodense lesi on is stable measuring 16 Hounsfield units, likely cystic. Focal low-attenuation along the falciform ligament likely focal fatty infiltration. Spleen, adrenal glands, pancreas are unremarkable. Symmetric nephrograms although intermittent cortical scarring left mid and lower pole. No hydronephro sis. No hydroureter. No focal renal lesion. Bladder is unremarkable. Aorta is normal in caliber. Retroperitoneal lymph nodes have mildly increased in size for example a l eft para-aortic lymph node (series 3 image 39), measures 1.5 x 1 cm, previously 0.7 cm in short axis. Prominent to borderline enlarged iliac chain and pelvic sidewall lymph nodes are seen, increase in s ize compared to 06/22/2021. For example a left pelvic sidewall/external iliac lymph node measures 1 cm short axis, previously 0.6 cm. Right inguinal lymph nodes are also increased in size, hospital sales representative lymph node measures 1.7 x 1.5 cm, previously 1.3 x 1.1 cm. Moderate colonic stool content is seen. No small or large bowel dilatation. No bowel obstruction. Amaris endix is not convincingly seen although the likely candidate appears normal (series 5 image [id number]), a nd without pericecal inflammatory change. Hip joint degenerative changes are seen. Degenerative changes of the lower lumbar spine. No aggressiv e osseous lesion. IMPRESSION: 1. Hypodense hepatic lesions are seen, the inferior right hepatic lobe lesion is likely cystic. Subc entimeter hypodense left hepatic lobe lesion is indeterminate, possibly cystic although borderline in density. Recommend close attention on follow-up or further evaluation with MRI based on clinical ind ication. 2. Interval enlargement of the retroperitoneal and right inguinal lymph nodes. Findings may represen t metastatic disease or malignancy such as lymphoma/leukemia. Given interval enlargement, biopsy can be considered. Electronically signed by: Fabricio Juarez MD (10/29/2021 8:46 AM) [facility]
== END ==
LOC: KCIC CT 13:12
PROVIDERS: ATTEND Nurse Practitioner
DX: K76.89 Other specified diseases of liver (principal); R93.5 Abnormal findings on diagnostic imaging of other abdominal regions, including retroperitoneum
CPT/HCPCS: 74177; 82565; Q9966; Q9967

== ENCOUNTER → 2021-11-05 | Outpatient (CLI) | payer MEDICARE ==
[~2021-11-05] MED LIST changes: -IOHEXOL 240 MG/ML 50ML VIAL. PO ONE; -IOHEXOL 300 MG/ML 100ML VIAL. IV ONE
[2021-11-05 11:16] LABS: BASO # 0.1 x10^3/uL (0.0-0.2); BASO % 1 % (0-3); EOS # 0.5 x10^3/uL (0.0-0.7); EOS % 6 % (0-3); HEMATOCRIT 29.8 % (36.0-47.0); HEMOGLOBIN 9.4 g/dL (12.0-15.5); LYMPH % 27 % (24-48); MEAN CORPUSCULAR HEMOGLOBIN 21 pg (25-35); MEAN CORPUSCULAR HGB CONC 32 g/dL (31-37); MEAN CORPUSCULAR VOLUME 67 fL (79-100); MONO # 0.5 x10^3/uL (0.0-1.1); MONO % 7 % (0-9); NEUT # 4.2 x10^3/uL (1.8-7.7); NEUT % 58 % (31-73); PLATELET COUNT 433 x10^3/uL (140-400); RED BLOOD COUNT 4.47 x10^6/uL (3.50-5.40); RED CELL DISTRIBUTION WIDTH 18.5 % (11.5-14.5); WHITE BLOOD COUNT 7.2 x10^3/uL (4.0-11.0)
[2021-11-05 11:22] LABS: CALCIUM 8.2 mg/dL (8.5-10.1); CREATININE 0.7 mg/dL (0.6-1.0); GFR 82.5; POTASSIUM 3.7 mmol/L (3.5-5.1)
[2021-11-05 11:40] LABS: ALBUMIN 2.4 g/dL (3.4-5.0); ALBUMIN/GLOBULIN RATIO 0.5 (1.0-1.7); TOTAL BILIRUBIN 0.3 mg/dL (0.2-1.0); TOTAL PROTEIN 7.7 g/dL (6.4-8.2)
[2021-11-05 12:39] LABS: PLT ESTIMATE INCREASED (ADEQUATE)
[2021-11-05 12:40] LABS: ANISOCYTOSIS SLIGHT; HYPOCHROMIA SLIGHT; MICROCYTOSIS MARKED
[2021-11-05 12:41] LABS: OVALOCYTES FEW; POLYCHROMASIA SLIGHT
== END ==
LOC: ONCLAB 10:38
PROVIDERS: ATTEND Internal Medicine Hematology & Oncology
DX: D50.9 Iron deficiency anemia, unspecified (principal); D75.838 Other thrombocytosis
CPT/HCPCS: 36415; 80053; 82728; 82746; 83540; 83550; 85025

== ENCOUNTER → 2022-02-02 | Outpatient (CLI) | payer MEDICARE ==
[~2022-02-02] MED LIST changes: -ACET1TAB33 PO; +ACET1TAB56 PO
[2022-02-02 11:54] LABS: BASO # 0.1 x10^3/uL (0.0-0.2); BASO % 1 % (0-3); EOS # 0.2 x10^3/uL (0.0-0.7); EOS % 3 % (0-3); HEMATOCRIT 33.6 % (36.0-47.0); HEMOGLOBIN 10.6 g/dL (12.0-15.5); LYMPH # 1.9 x10^3/uL (1.0-4.8); LYMPH % 30 % (24-48); MEAN CORPUSCULAR HEMOGLOBIN 22 pg (25-35); MEAN CORPUSCULAR HGB CONC 32 g/dL (31-37); MEAN CORPUSCULAR VOLUME 70 fL (79-100); MONO # 0.4 x10^3/uL (0.0-1.1); MONO % 7 % (0-9); NEUT # 3.6 x10^3/uL (1.8-7.7); NEUT % 59 % (31-73); PLATELET COUNT 331 x10^3/uL (140-400); RED BLOOD COUNT 4.78 x10^6/uL (3.50-5.40); RED CELL DISTRIBUTION WIDTH 20.7 % (11.5-14.5); WHITE BLOOD COUNT 6.1 x10^3/uL (4.0-11.0)
[2022-02-02 12:07] LABS: CALCIUM 8.7 mg/dL (8.5-10.1); CREATININE 0.7 mg/dL (0.6-1.0); GFR 82.3; POTASSIUM 4.1 mmol/L (3.5-5.1)
[2022-02-02 12:13] LABS: ALBUMIN 2.7 g/dL (3.4-5.0); ALBUMIN/GLOBULIN RATIO 0.6 (1.0-1.7); TOTAL BILIRUBIN 0.4 mg/dL (0.2-1.0); TOTAL PROTEIN 7.6 g/dL (6.4-8.2)
[2022-02-02 12:26] LABS: ANISOCYTOSIS MOD; MICROCYTOSIS SLIGHT; PLT ESTIMATE ADEQUATE (ADEQUATE)
== END ==
LOC: ONCLAB 11:24
PROVIDERS: ATTEND Internal Medicine Hematology & Oncology
DX: D47.3 Essential (hemorrhagic) thrombocythemia (principal); D50.9 Iron deficiency anemia, unspecified
CPT/HCPCS: 36415; 80053; 85025